=== PATIENT | female | born 1945 | race American Indian/Alaskan Native ===

== ENCOUNTER 2017-02-13 14:26 | Observation (INO) | payer OTHER ==
[2017-02-13] MEDS ORDERED: SODIUM CHLORIDE 0.9% 1000 ML INFUS.BAG IV ONE ×2 (14:33→14:42)
[2017-02-13 15:13] LABS: MCH 27.8 pg (25.7-33.7); MCHC 33.2 g/dl (32.0-36.0); MEAN CELL VOLUME 83.7 fl (80-96); MEAN PLT VOLUME 7.1 fl (7.5-11.1); NEUTROPHILS 63.2 % (42.8-82.8); PLATELET COUNT 248 K/MM3 (134-434); RDW 14.4 % (11.6-15.6); WHITE BLOOD COUNT 7.2 K/mm3 (4.0-10.0)
--- NOTE | 2017-02-13 15:27 | PDOC ---
History of Present Illness - General Chief Complaint: Blood Pressure Problem Stated Complaint: Blood Pressure Problem Time Seen by Provider: 02/13/17 14:32 History Source: Patient, Family Exam Limitations: No Limitations - History of Present Illness Initial Comments: 02/13/17 15:20 The patient is a 71F with a PMH of HTN and hypothyroidism who presents to the ED after an acute onset of weakness. The patient is with family who is at bedside. The family states that the patient had breakfast this morning then began feeling dizzy. She took a nap but then continued to feel dizzy around noon. They took her BP at noon and it was 160/100, she took 10mg of her medication and rechecked the BP and it was 156/90. After a little while longer, the patient's BP was rechecked at 170/100. The patient is also complaining of numbness around mouth with her hands and feet being cold. Her dizziness is described as lightheaded. BG was 115. Allergies: asa, sulfa abx Social: none Past History - Past Medical History Allergies/Adverse Reactions: Allergies Allergy/AdvReac Type Severity Reaction Status Date / Time amoxicillin trihydrate Allergy Vomiting Verified 02/13/17 15:51 [From Augmentin] aspirin Allergy Verified 02/13/17 15:50 potassium clavulanate Allergy Vomiting Verified 02/13/17 15:50 [From Augmentin] Sulfa (Sulfonamide Allergy Verified 02/13/17 14:39 Antibiotics) Home Medications: Ambulatory Orders Calcium Carbonate/Vitamin D3 [Calcium 500 + D Tablet] 1 each PO DAILY 08/23/13 Levothyroxine [Synthroid -] 88 mcg PO DAILY 08/23/13 Olmesartan Medoxomil [Benicar -] 20 mg PO DAILY 08/23/13 Omega3/Dha/Epa/Fish Oil/Vit D3 [Fauqo-7-Nqvz Oil-Vit D3 Sftgl] 1 each PO DAILY 08/23/13 Vitamin B Complex 1 each PO DAILY 08/23/13 Anemia: No Asthma: No Cancer: No Cardiac Disorders: No CVA: No COPD: No CHF: No Dementia: No Diabetes: No GI Disorders: No Disorders: No HTN: Yes Hypercholesterolemia: Yes Liver Disease: No Seizures: No Thyroid Disease: Yes - Surgical History Abdominal Surgery: No Appendectomy: No Cardiac Surgery: No Cholecystectomy: No Lung Surgery: No Neurologic Surgery: No Orthopedic Surgery: No - Psycho/Social/Smoking Cessation Hx Anxiety: No Suicidal Ideation: No Smoking History: Never smoked Have you smoked in the past 12 months: No Information on smoking cessation initiated: No Hx Alcohol Use: No Drug/Substance Use Hx: No Substance Use Type: None Review of Systems - Review of Systems Able to Perform ROS?: Yes Is the patient limited German proficient: No Constitutional: Yes: Weakness. No: Chills, Fever Respiratory: No: Shortness of Breath Cardiac (ROS): No: Chest Pain ABD/GI: Yes: Nausea. No: Vomiting, Other (abd pain) Neurological: Yes: Weakness. No: Headache, Numbness, Tingling *Physical Exam - Vital Signs Last Vital Signs Temp Pulse Resp BP Pulse Ox 98.1 F 94 H 18 164/101 96 02/13/17 14:26 02/13/17 14:26 02/13/17 14:26 02/13/17 14:26 02/13/17 14:26 - Physical Exam General Appearance: Yes: Nourished, Appropriately Dressed. No: Mild Distress, Moderate Distress HEENT: positive: Normal Voice, Hearing Grossly Normal Respiratory/Chest: positive: Lungs Clear, Normal Breath Sounds. negative: Chest Tender, Respiratory Distress, Accessory Muscle Use, Labored Respiration Cardiovascular: positive: Regular Rhythm, Regular Rate, S1, S2. negative: Diastolic Murmur, Systolic Murmur, Irregularly Irregular Gastrointestinal/Abdominal: positive: Normal Bowel Sounds, Flat, Soft. negative : Tender Musculoskeletal: negative: CVA Tenderness (R) Extremity: positive: Normal Range of Motion. negative: Swelling, Calf Tenderness Integumentary: positive: Dry, Warm. 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 negative: Facial Droop, Sensory Deficit ED Treatment Course - LABORATORY CBC & Chemistry Diagram: 02/13/17 14:55 02/13/17 14:55 - ADDITIONAL ORDERS Additional order review: 02/13/17 14:55 RBC 4.32 MCV 83.7 MCHC 33.2 RDW 14.4 MPV 7.1 L Neutrophils % 63.2 D Lymphocytes % 28.0 D Monocytes % 5.8 Eosinophils % 2.0 D Basophils % 1.0 D - RADIOLOGY Radiology Studies Ordered: Category Date Time Status HEAD CT WITHOUT CONTRAST [CT] Stat CT Scan 02/13/17 14:35 Taken CHEST X-RAY PORTABLE* [RAD] Stat Radiology 02/13/17 14:39 Ordered Medical Decision Making - Medical Decision Making 02/13/17 15:33 The patient is a 71F with a PMH of HTN and hypothyroidism who presented with weakness. I have ordered labs and head ct. Head CT is negative. The patient does not have a white count. I will reassess when the labs return. 02/13/17 16:49 CXR negative. Lactate 2.0 (-). CMP WNL. Patient states that she feels a little better but still complains of weakness. Daughter, Lux, was notified. Pending UA. *DC/Admit/Observation/Transfer Diagnosis at time of Disposition: Vertigo, Weakness generalized - Discharge Dispostion Condition at time of disposition: Stable Admit: Yes
[2017-02-13 15:33] LABS: ALBUMIN 3.5 g/dl (3.4-5.0); ANION GAP 8 (8-16); CALCIUM 9.1 mg/dL (8.5-10.1); CO2 24 mmol/L (21-32); CREATININE 0.7 mg/dL (0.55-1.02); GLUCOSE,RANDOM 101 mg/dL (74-106); MAGNESIUM 2.1 mg/dL (1.8-2.4); SGOT/AST 17 U/L (15-37); SGPT/ALT 23 U/L (12-78)
[2017-02-13 15:34] LABS: ALK PHOS 88 U/L (45-117); BILIRUBIN,TOTAL 0.4 mg/dL (0.2-1.0); TOT PROT 7.5 g/dl (6.4-8.2)
[2017-02-13 15:37] LABS: CPK 84 IU/L (26-192); TROPONIN I < 0.02 ng/ml (0.00-0.05)
[2017-02-13 16:55] LABS: URINE APPEARANCE CLOUDY; URINE BILIRUBIN NEGATIVE (NEGATIVE); URINE BLOOD NEGATIVE (NEGATIVE); URINE COLOR LTYELLOW; URINE GLUCOSE (UA) NEGATIVE (NEGATIVE); URINE KETONE NEGATIVE (NEGATIVE); URINE LEUK ESTERASE NEGATIVE (NEGATIVE); URINE NITRITE NEGATIVE (NEGATIVE); URINE PROTEIN NEGATIVE (NEGATIVE); URINE UROBILINOGEN NEGATIVE mg/dL (0.2-1.0)
--- NOTE | 2017-02-13 17:26 | PDOC ---
NIH Stroke Scale - Last Known Well Date/Time & Onset Date Last Known Well: 02/13/17 Time Last Known Well: 11:00 - Initial Evaluation Level of consciousness: Alert Ask patient the month and their age: Answers both correctly Ask patient to open & close eyes; make fist and let go: Obeys both correctly Best gaze (horizontal eye movement): Normal Visual field testing: No visual field loss Facial paresis (Show teeth/raise eyebrows/close eyes tight): Normal symmetrical movement Motor Function: Left Arm: Normal Motor Function: Right Arm: Normal (extends arm 90 (or 45) degrees for 10 seconds without drift Motor Function: Left Leg: Normal (extends leg 30 degrees for 5 seconds without drift) Motor Function: Right Leg: Normal (extends leg 30 degrees for 5 seconds without drift) Limb Ataxia: No ataxia Sensory(Use pinprick test arms,legs,trunk,face/side to side): Normal Best language (Describe picture, name items, read sentences): No Aphasia Dysarthria (read several words): Normal articulation Extinction and Inattention: No abnormality - Total Score NIH Stroke Scale Score: 0
--- NOTE | 2017-02-13 17:27 | CON.NEURO ---
Consult - History of Present Illness History of Present Illness: 71F with a PMH of HTN and hypothyroidism who presents to the ED after an acute onset of weakness. The patient is with family who is at bedside. The family states that the patient had breakfast this morning then began feeling dizzy apx 11AM. She took a nap but then continued to feel dizzy around noon. They took her BP at noon and it was 160/100, she took 10mg of her medication and rechecked the BP and it was 156/90. BP remained high. The patient is also complaining of numbness around mouth with her hands and feet being cold. Her dizziness is described as lightheaded. BG was 115. no new RX , no focal weakness/numbness, dizziness worse when she sits up. CT HD (-) - History Source History Provided By: Patient, Family Member Limitations to Obtaining History: No Limitations - Past Medical History Cardio/Vascular: Yes: HTN Endocrine: Yes: Hypothyroidism - Alcohol/Substance Use Hx Alcohol Use: No - Smoking History Smoking history: Never smoked Have you smoked in the past 12 months: No Home Medications - Allergies Allergies/Adverse Reactions: Allergies Allergy/AdvReac Type Severity Reaction Status Date / Time amoxicillin trihydrate Allergy Vomiting Verified 02/13/17 15:51 [From Augmentin] aspirin Allergy Verified 02/13/17 15:50 potassium clavulanate Allergy Vomiting Verified 02/13/17 15:50 [From Augmentin] Sulfa (Sulfonamide Allergy Verified 02/13/17 14:39 Antibiotics) - Home Medications Home Medications: Ambulatory Orders Calcium Carbonate/Vitamin D3 [Calcium 500 + D Tablet] 1 each PO DAILY 08/23/13 Levothyroxine [Synthroid -] 88 mcg PO DAILY 08/23/13 Olmesartan Medoxomil [Benicar -] 20 mg PO DAILY 08/23/13 Omega3/Dha/Epa/Fish Oil/Vit D3 [Ybaqy-2-Waur Oil-Vit D3 Sftgl] 1 each PO DAILY 08/23/13 Vitamin B Complex 1 each PO DAILY 08/23/13 Physical Exam-Neuro Vital Signs: Vital Signs Temperature 98.2 F 02/13/17 16:33 Pulse Rate 86 02/13/17 17:15 Respiratory Rate 16 02/13/17 17:15 Blood Pressure 152/88 02/13/17 17:15 O2 Sat by Pulse Oximetry (%) 98 02/13/17 17:15 Constitutional: Yes: Well Nourished, No Distress Neck: Yes: WNL Cardiovascular: Yes: Regular Rate and Rhythm Respiratory: Yes: Regular Labs: CBC, BMP 02/13/17 14:55 02/13/17 14:55 - Neuro Exam Level Of Consciousness: Yes: Alert, Oriented to Person (EOMI, feels vertiginous when she sits up, no facial, no ptosis, no facial sesnory issue, no focal weakness, no ataxia, reflexes symmetric, planatrs down, gait not tested ) Speech: WNL NIH Stroke Scale - Last Known Well Date/Time & Onset Symptom Onset Date: 02/13/17 Symptom Onset Time: 11:00 Date Last Known Well: 02/13/17 Time Last Known Well: 11:00 - Initial Evaluation Level of consciousness: Alert Ask patient the month & their age: Answers Both Correctly Ask Patient to open & close eyes; make fist and let go.: Obeys Both Correctly Best gaze (horizontal eye movement): Normal Visual Field Testing: No Visual Loss Facial Palsy(Show teeth or raise eyebrows & close eyes: Normal Symmetrical Movements. Motor Function - Left Arm: No Drift;extends limb 90 (or siting 45) degress & hold full 10 seconds Motor Function - Right Arm: No Drift;extends limb 90 (or siting 45) degress & hold full 10 seconds Motor Function - Left Leg: No Drift; leg holds 30 degree position for full 5 seconds. Motor Function - Right Leg: No Drift; leg holds 30 degree position for full 5 seconds. Limb Ataxia: Absent (also used for the pt who does not understand or paralyzed) Sensory (arms, legs, trunk, face): Normal; no sensory loss Best Language: No Aphasia; normal Dysarthria/Articulation: Normal Extinction and Inattention: No abnormality - Total Score NIH Stroke Scale Score: 0 Problem List - Problems (1) Vertigo Code(s): R42 - DIZZINESS AND GIDDINESS (2) Weakness generalized Code(s): R53.1 - WEAKNESS Assessment/Plan 71F with a PMH of HTN and hypothyroidism who presents to the ED after an acute onset of generalized weakness, perioral numbness and vertigo--positional vertigo sounds more peripheral (BPPV), though given numbness of face should r/o posterior circulation TIA/stroke; BP elevated but usually not high enough to cause her sx. r/o metabolic, thyroid, cardiac issues ASA for now, check TSH LIPIDS, Check MRI BRAIN /MRA BRAIN and MRA neck IV hydration, BP control meclizine PRN cardiac EVAL Dr Goodwin [phone]
[2017-02-13] MEDS ORDERED: ASPIRIN 81 MG CHEWABLE TABLETS PO ONE (17:38)
[2017-02-13] MEDS ORDERED: ASPIRIN 81 MG CHEWABLE TABLETS ONE (17:50)
--- NOTE | 2017-02-13 19:00 | PDOC ---
Attending Attestation - Resident Resident Name: Giorgi Arredondo - ED Attending Attestation I have performed the following: I have examined & evaluated the patient, The case was reviewed & discussed with the resident, I agree w/resident's findings & plan, Exceptions are as noted - HPI HPI: 02/13/17 18:57 71-year-old female history of hypertension and hypothyroidism who presents with sudden onset dizziness this morning at 11am associated with generalized weakness. She describes her dizziness as lightheadedness which is worse when she stands up. At that time she checked her blood pressure and found it to be elevated to 150s over low 100s. She then took one dose of her olmesartan. She rechecked her blood pressure 30 minutes later and it remained high at 156/90 so she took a second dose of her olmesartan. She also complains of intermittent numbness around her mouth and a sensation that her hands and feet are cold. Denies any recent fevers, chills, nausea, vomiting, diarrhea, abdominal pain, headaches, lower extremity edema, , chest pain, shortness of breath. No weakness or numbness. - Physicial Exam PE: 02/13/17 19:05 GENERAL: Awake, alert, and fully oriented, in no acute distress HEAD: No signs of trauma EYES: PERRLA, EOMI, sclera anicteric, conjunctiva clear ENT: Auricles normal inspection, hearing grossly normal, nares patent, oropharynx clear without exudates. dry MM NECK: Normal ROM, supple, no lymphadenopathy, JVD, or masses LUNGS: Breath sounds equal, clear to auscultation bilaterally. No wheezes, and no crackles HEART: Regular rate and rhythm, normal S1 and S2, no murmurs, rubs or gallops ABDOMEN: Soft, nontender, normoactive bowel sounds. No guarding, no rebound. No masses EXTREMITIES: Normal range of motion, no edema. No clubbing or cyanosis. No cords, erythema, or tenderness NEUROLOGICAL: Normal speech, cranial nerves intact, negative pronator drift, 5/ 5 strength in all 4 extremities, normal sensation to light touch in all 4 extremities, normal cerebellar exam, normal gait, normal reflexes and tone SKIN: Warm, Dry, normal turgor, no rashes or lesions noted. - Medical Decision Making 02/13/17 19:06 71-year-old female history of hypertension and hypothyroidism presents with lightheadedness and weakness. Differential is wide and includes cardiac etiology such as ACS versus infectious etiology such as UTI or PNA versus possible CVA. -labs -blood cx -UA -CTH stat -IVF -telemetry monitor -neuro c/s -if CTH negative, consider MRI -admit
[2017-02-14] MEDS ORDERED: ACETAMINOPHEN 325 MG TABLET (FP) PO PRN (00:04)
[2017-02-14 06:36] VITALS: PULSE 67
[2017-02-14] MEDS ORDERED: LEVOTHYROXINE NA 88 MCG TABLET (FP) PO SCH (07:00)
[2017-02-14 07:53] LABS: MCH 27.7 pg (25.7-33.7); MCHC 33.3 g/dl (32.0-36.0); MEAN CELL VOLUME 83.2 fl (80-96); PLATELET COUNT 236 K/MM3 (134-434); RDW 14.3 % (11.6-15.6); WHITE BLOOD COUNT 7.9 K/mm3 (4.0-10.0)
--- NOTE | 2017-02-14 08:24 | PN ---
Progress Note (short form) - Note Progress Note: Chief Complaint: Events noted notes reviewed. Sudden onset of generalized weakness with no focal deficits in association with uncontrolled hypertension, denies any chest pain or dyspnea History of Present Illness: Seen and examined on telemetry. Full consult dictated - Current Medication List Current Medications Acetaminophen (Tylenol -) 650 mg PO Q6H PRN PRN Reason: FEVER OR PAIN Last Admin: 02/14/17 00:09 Dose: 650 mg Calcium Carbonate/Cholecalciferol (Os-Brenden 500+D -) 1 tab PO DAILY [facility] Levothyroxine Sodium (Synthroid -) 88 mcg PO DAILY@0700 SUNI Last Admin: 02/14/17 06:36 Dose: 88 mcg Multivitamins (Total B With C -) 1 each PO DAILY [facility] Beaman 3 Fish Oil W/ (Vit D3) 1 each PO DAILY [facility] Valsartan (Diovan -) 160 mg PO DAILY [facility] - Review of Systems Constitutional: denies: Chills, Fever Cardiovascular: As noted above Respiratory: denies: Cough or sputum Production Gastrointestinal: denies: Nausea, Vomiting, Diarrhea, Constipation or Abdominal Pain Neurological: As noted above - Objective Vital Signs: Last Vital Signs Temp Pulse Resp BP Pulse Ox 97.8 F 67 20 123/59 100 02/14/17 06:35 02/14/17 06:35 02/14/17 06:35 02/14/17 06:35 02/13/17 18:57 Intake & Output 02/11/17 02/12/17 02/13/17 02/14/17 23:59 23:59 23:59 23:59 Intake Total 180 Balance 180 Weight 175 lb Neck: Supple Negative JVD Cardiovascular: S1 S2 Regular Rate and Rhythm No Murmurs Clicks or Gallops Respiratory: Clear to A&P Bilaterally Gastrointestinal: Soft Benign Normal Bowel Sounds Ext: No Edema Labs: Troponin, BNP 02/13/17 14:55 Troponin I < 0.02 Hepatic Panel Total Bilirubin 0.4 mg/dL (0.2-1.0) D 02/13/17 14:55 AST 17 U/L (15-37) D 02/13/17 14:55 ALT 23 U/L (12-78) 02/13/17 14:55 Alkaline Phosphatase 88 U/L (45-117) 02/13/17 14:55 Albumin 3.5 g/dl (3.4-5.0) 02/13/17 14:55 Assessment/Plan ASSESSMENT: 1. Generalized weakness with no focal neurologic deficits etiology of which is to be determined 2. Hypertensive cardiovascular disease, labile blood pressure 3. Hypercholesterolemia 4. Hypothyroidism PLAN: 1. Continue Diovan and resume Benicar upon D/C at 40 mg once daily 2. Recommend the addition of B-Blockers, Toprol XL 3. Add ASA, patient is not allergic to ASA (reported intolerance to ASA 325 mg administration, GI side effects) 4. Add Statin therapy and check lipid profile, Lipitor 5. Can be D/C from cardiovascular point of view and additional evaluation to be performed as outpatient including echocardiography and MPI study Thank you Rafi Marshall MD
[2017-02-14 08:35] LABS: ALBUMIN 3.2 g/dl (3.4-5.0); ALK PHOS 79 U/L (45-117); ANION GAP 8 (8-16); BILIRUBIN,TOTAL 0.5 mg/dL (0.2-1.0); CALCIUM 8.9 mg/dL (8.5-10.1); CO2 25 mmol/L (21-32); CPK 73 IU/L (26-192); CREATININE 0.6 mg/dL (0.55-1.02); GLUCOSE,RANDOM 88 mg/dL (74-106); SGOT/AST 18 U/L (15-37); SGPT/ALT 22 U/L (12-78); TOT PROT 6.8 g/dl (6.4-8.2); TROPONIN I < 0.02 ng/ml (0.00-0.05)
--- NOTE | 2017-02-14 08:40 | PN ---
Progress Note (short form) - Note Progress Note: 71F with a PMH of HTN and hypothyroidism who presents to the ED after an acute onset of weakness. The patient is with family who is at bedside. The family states that the patient had breakfast this morning then began feeling dizzy apx 11AM. She took a nap but then continued to feel dizzy around noon. They took her BP at noon and it was 160/100, she took 10mg of her medication and rechecked the BP and it was 156/90. BP remained high. The patient is also complaining of numbness around mouth with her hands and feet being cold. Her dizziness is described as lightheaded. BG was 115. no new RX , no focal weakness/numbness, dizziness worse when she sits up. CT HD (-) FU: MRI MRA reviewed, no cute CVa , no stenosis - History Source History Provided By: Patient, Family Member Limitations to Obtaining History: No Limitations - Past Medical History Cardio/Vascular: Yes: HTN Endocrine: Yes: Hypothyroidism - Alcohol/Substance Use Hx Alcohol Use: No - Smoking History Smoking history: Never smoked Have you smoked in the past 12 months: No Home Medications - Allergies Allergies/Adverse Reactions: Allergies Allergy/AdvReac Type Severity Reaction Status Date / Time amoxicillin trihydrate Allergy Vomiting Verified 02/13/17 15:51 [From Augmentin] aspirin Allergy Verified 02/13/17 15:50 potassium clavulanate Allergy Vomiting Verified 02/13/17 15:50 [From Augmentin] Sulfa (Sulfonamide Allergy Verified 02/13/17 14:39 Antibiotics) - Home Medications Home Medications: Ambulatory Orders Calcium Carbonate/Vitamin D3 [Calcium 500 + D Tablet] 1 each PO DAILY 08/23/13 Levothyroxine [Synthroid -] 88 mcg PO DAILY 08/23/13 Olmesartan Medoxomil [Benicar -] 20 mg PO DAILY 08/23/13 Omega3/Dha/Epa/Fish Oil/Vit D3 [Hgbfs-7-Kuod Oil-Vit D3 Sftgl] 1 each PO DAILY 08/23/13 Vitamin B Complex 1 each PO DAILY 08/23/13 Physical Exam-Neuro Vital Signs: Vital Signs Temperature 97.8 F 02/14/17 06:35 Pulse Rate 67 02/14/17 06:35 Respiratory Rate 20 02/14/17 06:35 Blood Pressure 123/59 02/14/17 06:35 O2 Sat by Pulse Oximetry (%) 100 02/13/17 18:57 CBCD WBC 7.9 K/mm3 (4.0-10.0) 02/14/17 05:50 RBC 4.22 M/mm3 (3.60-5.2) 02/14/17 05:50 Hgb 11.7 GM/dL (10.7-15.3) 02/14/17 05:50 Hct 35.1 % (32.4-45.2) 02/14/17 05:50 MCV 83.2 fl (80-96) 02/14/17 05:50 MCHC 33.3 g/dl (32.0-36.0) 02/14/17 05:50 RDW 14.3 % (11.6-15.6) 02/14/17 05:50 Plt Count 236 K/MM3 (134-434) 02/14/17 05:50 MPV 7.0 fl (7.5-11.1) L 02/14/17 05:50 CMP Sodium 138 mmol/L (136-145) 02/13/17 14:55 Potassium 4.0 mmol/L (3.5-5.1) 02/13/17 14:55 Chloride 106 mmol/L (98-107) 02/13/17 14:55 Carbon Dioxide 24 mmol/L (21-32) 02/13/17 14:55 Anion Gap 8 (8-16) 02/13/17 14:55 BUN 13 mg/dL (7-18) 02/13/17 14:55 Creatinine 0.7 mg/dL (0.55-1.02) D 02/13/17 14:55 Creat Clearance w eGFR > 60 (>60) 02/13/17 14:55 Calcium 9.1 mg/dL (8.5-10.1) 02/13/17 14:55 Total Bilirubin 0.4 mg/dL (0.2-1.0) D 02/13/17 14:55 AST 17 U/L (15-37) D 02/13/17 14:55 ALT 23 U/L (12-78) 02/13/17 14:55 Alkaline Phosphatase 88 U/L (45-117) 02/13/17 14:55 Total Protein 7.5 g/dl (6.4-8.2) 02/13/17 14:55 Albumin 3.5 g/dl (3.4-5.0) 02/13/17 14:55 - Neuro Exam Level Of Consciousness: Yes: Alert, Oriented to Person (EOMI, feels vertiginous when she sits up, no facial, no ptosis, no facial sesnory issue, no focal weakness, no ataxia, reflexes symmetric, planatrs down, gait not tested ) Speech: WNL NIH Stroke Scale - Last Known Well Date/Time & Onset Symptom Onset Date: 02/13/17 Symptom Onset Time: 11:00 Date Last Known Well: 02/13/17 Time Last Known Well: 11:00 - Initial Evaluation Level of consciousness: Alert Ask patient the month & their age: Answers Both Correctly Ask Patient to open & close eyes; make fist and let go.: Obeys Both Correctly Best gaze (horizontal eye movement): Normal Visual Field Testing: No Visual Loss Facial Palsy(Show teeth or raise eyebrows & close eyes: Normal Symmetrical Movements. Motor Function - Left Arm: No Drift;extends limb 90 (or siting 45) degress & hold full 10 seconds Motor Function - Right Arm: No Drift;extends limb 90 (or siting 45) degress & hold full 10 seconds Motor Function - Left Leg: No Drift; leg holds 30 degree position for full 5 seconds. Motor Function - Right Leg: No Drift; leg holds 30 degree position for full 5 seconds. Limb Ataxia: Absent (also used for the pt who does not understand or paralyzed) Sensory (arms, legs, trunk, face): Normal; no sensory loss Best Language: No Aphasia; normal Dysarthria/Articulation: Normal Extinction and Inattention: No abnormality - Total Score NIH Stroke Scale Score: 0 Problem List - Problems (1) Vertigo Code(s): R42 - DIZZINESS AND GIDDINESS (2) Weakness generalized Code(s): R53.1 - WEAKNESS Assessment/Plan 71F with a PMH of HTN and hypothyroidism who presents to the ED after an acute onset of generalized weakness, perioral numbness and vertigo--positional vertigo sounds more peripheral (BPPV), though given numbness of face should r/o posterior circulation TIA/stroke; BP elevated but usually not high enough to cause her sx. MRI BRAIN /MRA BRAIN and MRA neck WNL looks better today, transient vestibulopathy neuro cleared for DC Dr Goodwin [phone] Problem List - Problems (1) Vertigo Code(s): R42 - DIZZINESS AND GIDDINESS (2) Weakness generalized Code(s): R53.1 - WEAKNESS
[2017-02-14 09:04] LABS: CHOLESTEROL 200 mg/dL (50-200); LDL CHOLESTEROL (ONLY SJRH) 128 mg/dL (5-100)
--- NOTE | 2017-02-14 09:32 | EKG ---
Test Reason : Blood Pressure : / mmHG Vent. Rate : 085 BPM Atrial Rate : 085 BPM P-R Int : 166 ms QRS Dur : 080 ms QT Int : 382 ms P-R-T Axes : 031 -04 028 degrees QTc Int : 454 ms NORMAL SINUS RHYTHM NONSPECIFIC ST ABNORMALITY ABNORMAL ECG WHEN COMPARED WITH ECG OF 19-JUN-2013 03:38, NO SIGNIFICANT CHANGE WAS FOUND Confirmed by TIMOTEO ROONEY MD ([id number]) on 02/14/2017 9:32:07 AM Referred By: Confirmed By:TIMOTEO ROONEY MD
[2017-02-14] MEDS ORDERED: VIT D3 PO SCH (10:00)
[2017-02-14] MEDS ORDERED: METOPROLOL SUCCINATE 25 MG TAB.SR.24H (FP) PO SCH (10:00)
[2017-02-14] MEDS ORDERED: ASPIRIN COATED 81 MG TABLET.EC PO SCH (10:00)
[2017-02-14] MEDS ORDERED: OMEGA FISH OIL PO SCH (10:00)
[2017-02-14] MEDS ORDERED: VITAMIN B COMPLEX W/C COMBO TABLET (FP) PO SCH (10:00)
[2017-02-14] MEDS ORDERED: VALSARTAN 160 MG TABLET (UD) PO SCH (10:00)
[2017-02-14] MEDS ORDERED: CALCIUM 500MG/VIT-D 200 UNITS COMBO TABLET (FP) PO SCH (10:00)
--- NOTE | 2017-02-14 10:00 | PN ---
Progress Note, Physician Chief Complaint: Pt lying in bed No complaints today NO dizziness,no headache BP under control MRI and MR a of brain and MRI and MRA of neck negative CT head negative cardiology and Neurology consult appreciated D?C home today - Current Medication List Current Medications: Active Medications Acetaminophen (Tylenol -) 650 mg PO Q6H PRN PRN Reason: FEVER OR PAIN Last Admin: 02/14/17 00:09 Dose: 650 mg Aspirin (Ecotrin -) 81 mg PO DAILY [facility] Atorvastatin Calcium (Lipitor -) 10 mg PO HS [facility] Calcium Carbonate/Cholecalciferol (Os-[place] 500+D -) 1 tab PO DAILY [facility] Levothyroxine Sodium (Synthroid -) 88 mcg PO DAILY@0700 [facility] Last Admin: 02/14/17 06:36 Dose: 88 mcg Metoprolol Succinate (Toprol Xl -) 25 mg PO DAILY [facility] Multivitamins (Total B With C -) 1 each PO DAILY [facility] [place] 3 Fish Oil W/ (Vit D3) 1 each PO DAILY [facility] Valsartan (Diovan -) 160 mg PO DAILY [facility] - Objective Vital Signs: Vital Signs Temperature 97.8 F 02/14/17 06:35 Pulse Rate 67 02/14/17 06:35 Respiratory Rate 20 02/14/17 06:35 Blood Pressure 123/59 02/14/17 06:35 O2 Sat by Pulse Oximetry (%) 100 02/13/17 18:57 Constitutional: Yes: No Distress Eyes: Yes: Conjunctiva Clear HENT: Yes: Atraumatic, Normocephalic Neck: Yes: Supple, Trachea Midline Cardiovascular: Yes: Regular Rate and Rhythm Respiratory: Yes: Regular, CTA Bilaterally Gastrointestinal: Yes: Normal Bowel Sounds, Soft Musculoskeletal: Yes: WNL Extremities: Yes: WNL Edema: No Peripheral Pulses WNL: Yes Neurological: Yes: Alert, Oriented, Cran Nerves II-XII Intact ...Motor Strength: WNL Psychiatric: Yes: WNL Labs: CBC, BMP 02/14/17 05:50 02/14/17 05:50 Laboratory Results - last 24 hr 02/13/17 02/13/17 02/13/17 14:55 14:55 14:55 WBC 7.2 D RBC 4.32 Hgb 12.0 Hct 36.2 MCV 83.7 MCH 27.8 MCHC 33.2 RDW 14.4 Plt Count 248 MPV 7.1 L Neutrophils % 63.2 D Lymphocytes % 28.0 D Monocytes % 5.8 Eosinophils % 2.0 D Basophils % 1.0 D Sodium 138 Potassium 4.0 Chloride 106 Carbon Dioxide 24 Anion Gap 8 BUN 13 Creatinine 0.7 D Creat Clearance w eGFR > 60 Random Glucose 101 Lactic Acid Calcium 9.1 Magnesium 2.1 Total Bilirubin 0.4 D AST 17 D ALT 23 Alkaline Phosphatase 88 Creatine Kinase 84 Troponin I < 0.02 Total Protein 7.5 Albumin 3.5 Triglycerides Cholesterol Total LDL Cholesterol HDL Cholesterol Urine Color Urine Appearance Urine pH Ur Specific [place] Urine Protein Urine Glucose (UA) Urine Ketones Urine Blood Urine Nitrite Urine Bilirubin Urine Urobilinogen Ur Leukocyte Esterase 02/13/17 02/13/17 02/14/17 15:40 16:30 05:50 WBC 7.9 RBC 4.22 Hgb 11.7 Hct 35.1 MCV 83.2 MCH 27.7 MCHC 33.3 RDW 14.3 Plt Count 236 MPV 7.0 L Neutrophils % Lymphocytes % Monocytes % Eosinophils % Basophils % Sodium Potassium Chloride Carbon Dioxide Anion Gap BUN Creatinine Creat Clearance w eGFR Random Glucose Lactic Acid 2.0 Calcium Magnesium Total Bilirubin AST ALT Alkaline Phosphatase Creatine Kinase Troponin I Total Protein Albumin Triglycerides Cholesterol Total LDL Cholesterol HDL Cholesterol Urine Color Ltyellow Urine Appearance Cloudy Urine pH 8.0 D Ur Specific [place] 1.015 Urine Protein Negative Urine Glucose (UA) Negative Urine Ketones Negative Urine Blood Negative Urine Nitrite Negative Urine Bilirubin Negative Urine Urobilinogen Negative Ur Leukocyte Esterase Negative 02/14/17 02/14/17 05:50 05:50 WBC RBC Hgb Hct MCV MCH MCHC RDW Plt Count MPV Neutrophils % Lymphocytes % Monocytes % Eosinophils % Basophils % Sodium 141 Potassium 4.2 Chloride 108 H Carbon Dioxide 25 Anion Gap 8 BUN 9 D Creatinine 0.6 Creat Clearance w eGFR > 60 Random Glucose 88 Lactic Acid Calcium 8.9 Magnesium Total Bilirubin 0.5 D AST 18 ALT 22 Alkaline Phosphatase 79 Creatine Kinase 73 Troponin I < 0.02 Total Protein 6.8 Albumin 3.2 L Triglycerides 104 Cancelled Cholesterol 200 Cancelled Total LDL Cholesterol 128 H Cancelled HDL Cholesterol 57 Cancelled Urine Color Urine Appearance Urine pH Ur Specific [place] Urine Protein Urine Glucose (UA) Urine Ketones Urine Blood Urine Nitrite Urine Bilirubin Urine Urobilinogen Ur Leukocyte Esterase - ....Imaging X-ray: Report Reviewed Cat Scan: Report Reviewed MRI: Report Reviewed EKG: Report Reviewed Assessment/Plan DIzziness with generalised weakness HTN Hypothyroidism PLAN Continue benicar and toprolXL zocor 10mg po daily D?C home F/U with PMD in one wk
[2017-02-14] MEDS ORDERED: PT OWN MED DRAWER 7, Y5N ONE (10:03)
[2017-02-14 10:13] VITALS: BP 140/80; TEMP 97.6
--- NOTE | 2017-02-14 10:21 | HP ---
DATE OF ADMISSION: HISTORY: The patient is a 71-year-old with a past medical history of hypertension, hypothyroidism who presented to the emergency room after the onset of weakness. As per the family, she felt dizzy since morning. Yesterday she took a nap but continued to feel dizzy around noon, so they took her blood pressure, and it was 160/100, and the patient took an extra 10 mg of Benicar in addition to her regular medication of 10 mg in the morning. Rechecked the BP, and it was 156/90. The blood pressure remained high. The patient is complaining of some perioral numbness and funny feeling in the hand and hand was feeling cold, so the patient was brought to the emergency room for further evaluation. No focal weakness or numbness. No chest pain or palpitations. As per the patient, the dizziness was worse when she would stop. PAST MEDICAL HISTORY: Hypertension, hypothyroidism. PERSONAL HISTORY: Nothing significant. No history of alcohol, drug, or smoking. Lives with the family. ALLERGIES: AUGMENTIN, AMOXICILLIN, SULFA. MEDICATIONS: The patient is on: 1. Benicar 10 mg. 2. [place]-3. 3. Vitamin B complex. 4. Levothyroxine 18 mcg p.o. daily. 5. Calcium. PHYSICAL EXAMINATION: Vital Signs: In the emergency room, the patient's temperature a 98.1, pulse rate 94, respirations 18, blood pressure 164/100, saturation 96%. Head and Neck: Normal. Neck supple, no JVD. Chest: Clear. Cardiovascular: First and 2nd sound normal. Abdomen: Soft. No tenderness. No distention. Bowel sounds present. Extremities: Full range of movement. No edema. Central Nervous System: Alert and oriented x3. No apparent motor or sensory deficit. Reflex normal. Cranial nerves 2-12 normal. Gait normal. LABORATORIES: CBC normal. CMP normal. Lactic acid 2, AST 17, CK 84, troponin x1 negative. Calcium 9.1, magnesium 2.1. Chest x-ray, nothing significant. EKG: Normal sinus rhythm. Nonspecific ST abnormality. Compared to old EKG, there is no change. CT head done. It was negative. MRI of the neck and brain with MRA done. There is no infarct. MRA brain, minimal periventricular and subcortical chronic microvascular disease. Intracranial MRA. No evidence of large-vessel stenosis. Patent vertebral artery. No carotid stenosis. The patient was admitted to telemetry for close monitoring. Cardiology and Neurology consult called. Patient was stable on the floor, according to Cardiology. Benicar dose increased to 40 mg daily. Beta-ponce added. Anti-lipid medication added. ADMITTING DIAGNOSIS: 1. Generalized weakness with no focal neurological symptoms. 2. Hypertensive cardiovascular disease. 3. Hypercholesterolemia. 4. Hypothyroidism. PLAN: Continue the Benicar 40 mg daily. Add aspirin. Toprol XL added. 100 mg added. We will continue to monitor the patient. ALBER PEREA M.D. [id number]
--- NOTE | 2017-02-14 12:13 | DS ---
Physical Examination Vital Signs: Vital Signs Temperature 97.6 F 02/14/17 09:53 Pulse Rate 67 02/14/17 09:53 Respiratory Rate 18 02/14/17 09:53 Blood Pressure 140/80 02/14/17 09:53 O2 Sat by Pulse Oximetry (%) 97 02/14/17 09:53 Labs: CBC, BMP 02/14/17 05:50 02/14/17 05:50 Discharge Summary Reason For Visit: VERTIGO VERTIGO GENERALISED WEAKNESS UNCONTROLLED HTN HYPOTHYROIDISM Hospital Course: PT with H?o HTN,HYPOTHYROIDISM Admitted with vertigo,WEakness and uncontrolled Htn.AT the time Of admission Labs were NL,EKG and CHEST Xray Were NL CT head,MRI and MRA of joanne and MRI and MRA of Neck were MNL.Pt was monitored in TElemetry Pt was seen by cardiology and neurology,Pt was stable in the floor.Pt d/c home on Home meds,TOPROL XL and Lipitor in a stable condition.REc to f/u with PMD in one WK Condition: Stable - Instructions Referrals: Dory Espinosa MD [Primary Care Provider] - Disposition: HOME - Home Medications Comprehensive Discharge Medication List: Ambulatory Orders Calcium Carbonate/Vitamin D3 [Calcium 500 + D Tablet] 1 each PO DAILY 08/23/13 Levothyroxine [Synthroid -] 88 mcg PO DAILY 08/23/13 Olmesartan Medoxomil [Benicar -] 20 mg PO DAILY 08/23/13 Omega3/Dha/Epa/Fish Oil/Vit D3 [Dibtn-2-Drnr Oil-Vit D3 Sftgl] 1 each PO DAILY 08/23/13 Vitamin B Complex 1 each PO DAILY 08/23/13 Atorvastatin Ca [Lipitor] 10 mg PO HS #30 tablet 02/14/17 Metoprolol Succinate [Toprol XL -] 25 mg PO DAILY #30 tab 02/14/17
--- NOTE | 2017-02-14 12:19 | DS ---
Physical Examination Vital Signs: Vital Signs Temperature 97.6 F 02/14/17 09:53 Pulse Rate 67 02/14/17 09:53 Respiratory Rate 18 02/14/17 09:53 Blood Pressure 140/80 02/14/17 09:53 O2 Sat by Pulse Oximetry (%) 97 02/14/17 09:53 Labs: CBC, BMP 02/14/17 05:50 02/14/17 05:50 Discharge Summary Reason For Visit: VERTIGO Dizziness wekness HTN HYPOTHyROIDISM Hospital Course: Pt with h/o HTN,HYPOTHYROIDISM admitted with generalised weakness,vertigo and Uncontrolled HTN.AT the time of admission CBC,CMP were NL Cardiac enzymes were negative.EKG NL,CT head NL,MRI And MRA of brain and MRI and MRA of NECK were NL.Chest x ray NL Pt was monitored in the Telemetry.PT was seen by Neurology negative Condition: Stable - Instructions Referrals: Dory Espinosa MD [Primary Care Provider] - Disposition: HOME - Home Medications Comprehensive Discharge Medication List: Ambulatory Orders Calcium Carbonate/Vitamin D3 [Calcium 500 + D Tablet] 1 each PO DAILY 08/23/13 Levothyroxine [Synthroid -] 88 mcg PO DAILY 08/23/13 Olmesartan Medoxomil [Benicar -] 20 mg PO DAILY 08/23/13 Omega3/Dha/Epa/Fish Oil/Vit D3 [Sxyyc-2-Cclw Oil-Vit D3 Sftgl] 1 each PO DAILY 08/23/13 Vitamin B Complex 1 each PO DAILY 08/23/13 Atorvastatin Ca [Lipitor] 10 mg PO HS #30 tablet 02/14/17 Metoprolol Succinate [Toprol XL -] 25 mg PO DAILY #30 tab 02/14/17
[2017-02-14] MEDS ORDERED: ATORVASTATIN CA 10 MG TABLET (FP) PO SCH (22:00)
--- NOTE | 2017-02-15 09:10 | CONS ---
DATE OF CONSULTATION: 02/14/2017 REQUESTED BY: Dory Espinosa MD CHIEF COMPLAINT: Generalized weakness, elevated blood pressure, cardiovascular evaluation. HISTORY OF PRESENT ILLNESS: A 71-year-old female of [place] descent with known history of hypertensive cardiovascular disease, hypercholesterolemia, hypothyroidism, who was in her usual state of health until presenting to [facility] emergency room yesterday with generalized weakness and in addition circumoral paresthesia. Generalized weakness was sudden in onset which persisted and in addition patient noted elevated blood pressure measurements in view of which she had administered extra Benicar therapy. Patient stated that on several occasions she has noted elevated blood pressure measurement in view of which additional Benicar therapy has been administered. Patient as noted above reported circumoral paresthesia. Patient denied any additional neurologic deficits. Patient reported transient dizziness. Patient does not report any history of chest discomfort. Patient reports dyspnea with moderate physical exertion. Patient denies any orthopnea, paroxysmal nocturnal dyspnea, or peripheral edema. Patient denies any palpitations or syncope. Patient denies any fatigue or tiredness. MRI of the brain did not reveal any evidence of acute pathology and in addition MRA of the brain did not reveal any evidence of vascular pathology. PAST MEDICAL HISTORY: Hypertensive cardiovascular disease, labile blood pressure, hypercholesterolemia, hypothyroidism. SOCIAL HISTORY: Denies tobacco abuse or alcohol intake. FAMILY HISTORY: No family history of premature coronary artery disease. ALLERGIES: AMOXICILLIN and SULFA. MEDICAL THERAPY: Currently includes acetaminophen 650 mg every 6 hours as needed, Os-Bren[place] 500+D 1 tablet once a day, Synthroid 88 mcg once a day, multivitamin 1 tablet once a day, [place] 3 one capsule once a day, Benicar 20 mg once a day. REVIEW OF SYSTEMS:Head and Neck: Denies headache, photophobia, blurring of vision. Respiratory: No cough or sputum production. Cardiovascular: As noted above. Gastrointestinal: Denies nausea, vomiting, diarrhea, abdominal discomfort. Genitourinary: No symptoms reported. PHYSICAL EXAMINATION:Vital Signs: Blood pressure is 123/59 mmHg, pulse rate of 67 beats per minute. Head and Neck: Pupils equally react to light and accommodation. Extraocular muscle intact. Anicteric sclerae. Negative JVD. No bruit appreciated. Chest: Clear to auscultation and percussion. Cardiovascular: S1 and S2, regular. No murmur, clicks, or gallops. Abdomen: Soft, benign. Normoactive bowel sounds. Extremities: Negative edema. Intact distal pulses. No calf tenderness. DIAGNOSTIC DATA: Electrocardiogram reveals sinus rhythm with early transition and nonspecific ST-segment abnormality. Chest x-ray report was noted. MRI and MRA of the brain reports were noted. CBC revealed a white cell count of 7.2, hemoglobin 12.0, platelet count 248. Basic metabolic profile revealed sodium 138, potassium 4.0, BUN 113, creatinine 0.7, glucose 101, with normal liver profile. Troponin less than 0.02. ASSESSMENT: 1. Generalized weakness with no focal neurologic deficit, etiology of which is to be determined. 2. Hypertensive cardiovascular disease, labile blood pressure. 3. Hypercholesterolemia. 4. Hypothyroidism. PLAN: 1. Continuation of Diovan therapy and to resume Benicar therapy upon discharge at 40 mg once daily. 2. Recommend the addition of beta ponce therapy, Toprol XL, at 25 mg once daily. 3. Addition of aspirin therapy. Patient has no allergy to aspirin therapy but GI intolerant. 4. Addition of statin therapy and obtain fasting lipid profile. Initiate Lipitor therapy. 5. Patient can be discharged home from the cardiovascular point of view and additional evaluation to be performed on an outpatient basis, including echocardiography and myocardial perfusion imaging study. Thank you for your kind referral. CHARLOTTE PIMENTEL M.D. [id number]
== END 2017-02-14 10:59 | disposition home or self-care (01) ==
LOC: JER 14:26 → JERBED 18:32 → J4W 23:00
PROVIDERS: ADMIT Family Medicine; ATTEND Family Medicine
DX: R42 Dizziness and giddiness (principal); R53.1 Weakness; I10 Essential (primary) hypertension; E78.5 Hyperlipidemia, unspecified; E03.9 Hypothyroidism, unspecified; Z88.1 Allergy status to other antibiotic agents; Z88.2 Allergy status to sulfonamides; Z88.6 Allergy status to analgesic agent
CPT/HCPCS: 36415; 70450-TC; 70544-TC; 70547-TC; 70551-TC; 71010-TC; 80053; 80061; 81003; 83605; 83721; 83735; 84484; 85025; 85027; 87040; 87086; 93005; 93010; 99283-25; G0378

== ENCOUNTER 2018-12-04 09:11 | Emergency (ER) | payer OTHER ==
--- NOTE | 2018-12-04 09:21 | PDOC ---
History of Present Illness - History of Present Illness Initial Comments: 12/04/18 09:21 Ms. Wasserman is a 73 yo female w/ pmh of HTN, venous insufficiency, and hypothyroidism who presents for evaluation of 1 day history of weakness and dizziness. Patient reports this is similar to an epidose in Feb 2017 patient had full (negative) neurological evaluation for. Of note, patient is recently returned from [place]. Patient additionally is scheduled for US evaluation of RLE that is mildly swollen. Denies any chest pain, shortness of breath, or other symptoms. Reports dizziness is increased with movement of her head. The patient denies chest pain, shortness of breath, and headache. Denies fever, chills, nausea, vomit, diarrhea and constipation. Denies dysuria, frequency, urgency and hematuria. <Willy Toribio - Last Filed: 12/04/18 12:31> <Annmarie Savage - Last Filed: 12/07/18 23:12> - General Chief Complaint: Lightheaded Stated Complaint: Lightheaded Time Seen by Provider: 12/04/18 09:21 Past History - Past Medical History Anemia: No Asthma: No Cancer: No Cardiac Disorders: No CVA: No COPD: No CHF: No Dementia: No Diabetes: No GI Disorders: No Disorders: No HTN: Yes Hypercholesterolemia: Yes Liver Disease: No Seizures: No Thyroid Disease: Yes - Surgical History Abdominal Surgery: No Appendectomy: No Cardiac Surgery: No Cholecystectomy: No Lung Surgery: No Neurologic Surgery: No Orthopedic Surgery: No - Suicide/Smoking/Psychosocial Hx Smoking History: Never smoked Have you smoked in the past 12 months: No Hx Alcohol Use: No Drug/Substance Use Hx: No Substance Use Type: None <Willy Toribio - Last Filed: 12/04/18 12:31> <Annmarie Savage - Last Filed: 12/07/18 23:12> - Past Medical History Allergies/Adverse Reactions: Allergies Allergy/AdvReac Type Severity Reaction Status Date / Time amoxicillin trihydrate Allergy Vomiting Verified 12/04/18 09:29 [From Augmentin] aspirin Allergy Verified 12/04/18 09:29 potassium clavulanate Allergy Vomiting Verified 12/04/18 09:29 [From Augmentin] Sulfa (Sulfonamide Allergy Verified 12/04/18 09:29 Antibiotics) Home Medications: Ambulatory Orders Levothyroxine [Synthroid -] 88 mcg PO DAILY 08/23/13 Metoprolol Succinate [Toprol XL -] 25 mg PO DAILY #30 tab 02/14/17 Ciprofloxacin HCl [Cipro] 500 mg PO DAILY #3 tablet 12/04/18 Losartan Potassium 50 mg PO DAILY 12/04/18 Meclizine HCl 25 mg PO TID PRN #15 tablet 12/04/18 Review of Systems - Review of Systems Comments:: 12/04/18 09:48 GENERAL/CONSTITUTIONAL: No fever or chills. No weakness. HEAD, EYES, EARS, NOSE AND THROAT: No change in vision. No ear pain or discharge. No sore throat. CARDIOVASCULAR: No chest pain or shortness of breath RESPIRATORY: No cough, wheezing, or hemoptysis. GASTROINTESTINAL: No nausea, vomiting, diarrhea or constipation. GENITOURINARY: No dysuria, frequency, or change in urination. MUSCULOSKELETAL: +RLE swelling. No joint or muscle swelling or pain. No neck or back pain. SKIN: No rash NEUROLOGIC: +Positional dizziness as described. No headache, loss of consciousness, or change in strength/sensation. ENDOCRINE: No increased thirst. No abnormal weight change HEMATOLOGIC/LYMPHATIC: No anemia, easy bleeding, or history of blood clots. ALLERGIC/IMMUNOLOGIC: No hives or skin allergy. <Willy Toribio - Last Filed: 12/04/18 12:31> *Physical Exam - Physical Exam Comments: 12/04/18 09:49 GENERAL: Awake, alert, and fully oriented, in no acute distress HEAD: No signs of trauma, normocephalic, atraumatic EYES: PERRLA, EOMI, sclera anicteric, conjunctiva clear ENT: Auricles normal inspection, hearing grossly normal, nares patent, oropharynx clear without exudates. Moist mucosa NECK: Normal ROM, supple, no lymphadenopathy, JVD, or masses LUNGS: No distress, speaks full sentences, clear to auscultation bilaterally HEART: Regular rate and rhythm, normal S1 and S2, no murmurs, rubs or gallops, peripheral pulses normal and equal bilaterally. ABDOMEN: Soft, nontender, normoactive bowel sounds. No guarding, no rebound. No masses EXTREMITIES: +Mild RLE pedal edemaLegs TTP SANDY c/w patient's venous insufficiency. Normal inspection, Normal range of motion, no edema. No clubbing or cyanosis. NEUROLOGICAL: Cranial nerves II through XII grossly intact. Normal speech, normal gait, no focal sensorimotor deficits SKIN: Warm, Dry, normal turgor, no rashes or lesions noted. <Willy Toribio - Last Filed: 12/04/18 12:31> - Vital Signs Last Vital Signs Temp Pulse Resp BP Pulse Ox 98.2 F 72 18 123/71 98 12/04/18 12:57 12/04/18 12:57 12/04/18 12:57 12/04/18 12:57 12/04/18 12:57 <Annmarie Savage - Last Filed: 12/07/18 23:12> ED Treatment Course - LABORATORY CBC & Chemistry Diagram: 12/04/18 09:45 12/04/18 09:45 <Willy Toribio - Last Filed: 12/04/18 12:31> - LABORATORY CBC & Chemistry Diagram: 12/04/18 09:45 12/04/18 09:45 - ADDITIONAL ORDERS Additional order review: 12/04/18 11:00 Urine Culture - Final Urine - Urine Clean Catch Escherichia Coli 12/04/18 09:45 RBC 4.11 MCV 84.8 MCHC 32.6 RDW 15.0 MPV 7.3 L Neutrophils % 61.1 Lymphocytes % 29.4 Monocytes % 6.3 Eosinophils % 2.1 Basophils % 1.1 - Medications Given in the ED: ED Medications Discontinued Medications Generic Name Dose Route Start Last Admin Trade Name Freq PRN Reason Stop Dose Admin Sodium Chloride 1,000 mls @ 1,000 mls/hr 12/04/18 09:23 12/04/18 09:29 Normal Saline - IV 12/04/18 10:22 1,000 mls/hr ASDIR STA Administration Lorazepam 1 mg 12/04/18 11:13 12/04/18 12:13 Ativan Injection - IVPUSH 12/04/18 11:14 1 mg ONCE ONE Administration Meclizine HCl 25 mg 12/04/18 09:23 12/04/18 09:46 Antivert - PO 12/04/18 09:24 25 mg ONCE ONE Administration Ondansetron HCl 4 mg 12/04/18 09:23 12/04/18 09:46 Zofran Injection IVPUSH 12/04/18 09:24 4 mg ONCE ONE Administration Sodium Chloride 1,000 ml 12/04/18 11:13 12/04/18 12:13 Normal Saline - IV 12/04/18 11:14 1,000 ml ONCE ONE Administration <Annmarie Savage - Last Filed: 12/07/18 23:12> Medical Decision Making - Medical Decision Making 12/04/18 12:31 Ms. Wasserman is a 73 yo female w/ pmh as described who presents for evaluation of symptoms concerning for CVA vs. dehydration vs. electrolyte imbalance. Patient evaluated with labs as below as well as EKG and US for r/o DVT. US negative for acute process, EKG normal sinus. Patient reports improvement of symptoms following meclizine and ativan x1. Patient also incidentally noted to have UTI. Rx for ABX as well as meclizine sent to patient's pharmacy. Concern for acute process low at this time. Discharging to home for further outpatient follow-up as needed. Laboratory Results - last 24 hr 12/04/18 12/04/18 12/04/18 09:45 09:45 11:00 WBC 6.3 RBC 4.11 Hgb 11.4 Hct 34.9 MCV 84.8 MCH 27.7 MCHC 32.6 RDW 15.0 Plt Count 189 MPV 7.3 L Absolute Neuts (auto) 3.8 Neutrophils % 61.1 Lymphocytes % 29.4 Monocytes % 6.3 Eosinophils % 2.1 Basophils % 1.1 Nucleated RBC % 0 Sodium 142 Potassium 3.8 Chloride 111 H Carbon Dioxide 24 Anion Gap 7 L BUN 18 Creatinine 0.7 Est GFR (CKD-EPI)AfAm 99.62 Est GFR (CKD-EPI)NonAf 85.95 Random Glucose 93 Calcium 8.6 Magnesium 2.1 Total Bilirubin 0.4 AST 15 ALT 19 Alkaline Phosphatase 74 Creatine Kinase 91 Troponin I < 0.02 Total Protein 6.7 Albumin 3.2 L Urine Color Yellow Urine Appearance Clear Urine pH 6.5 Ur Specific [place] 1.007 L Urine Protein Negative Urine Glucose (UA) Negative Urine Ketones Negative Urine Blood Negative Urine Nitrite Positive H Urine Bilirubin Negative Urine Urobilinogen 0.2 Ur Leukocyte Esterase Trace Urine WBC (Auto) 4 Urine RBC (Auto) 1 Urine Casts (Auto) 2 U Epithel Cells (Auto) 3.4 Urine Bacteria (Auto) 2641.5 <Willy Toribio - Last Filed: 12/04/18 12:31> *DC/Admit/Observation/Transfer <Willy Toribio - Last Filed: 12/04/18 12:31> <Annmarie Savage - Last Filed: 12/07/18 23:12> Diagnosis at time of Disposition: Dizziness, UTI (urinary tract infection) - Discharge Dispostion Disposition: HOME - Prescriptions Prescriptions: Ciprofloxacin HCl [Cipro] 500 mg PO DAILY #3 tablet Meclizine HCl 25 mg PO TID PRN #15 tablet PRN Reason: Vertigo - Patient Instructions Printed Discharge Instructions: DI for Vertigo, DI for Urinary Tract Infection (UTI) Additional Instructions: You were evaluated today in the ER for your symptoms. We performed laboratory evaluation as well as EKG and leg ultrasound. We noted you to have a UTI however no other concerning findings. We sent prescriptions for meclizine as well as antibiotics to your pharmacy. Please take all medications as proscribed. We believe you are safe for discharge and further outpatient follow- up as needed. Please return to ER if any fever, return of vertigo not controllable with medications, pain, or other concerning symptoms.
[2018-12-04] MEDS ORDERED: ONDANSETRON 4 MG/2 ML VIAL IVPUSH ONE (09:23)
[2018-12-04] MEDS ORDERED: SODIUM CHLORIDE 1,000 ML IV STA (09:23)
[2018-12-04] MEDS ORDERED: MECLIZINE HCL 25 MG TABLET (FP) PO ONE (09:23)
--- NOTE | 2018-12-04 09:25 | PDOC ---
Attending Attestation - Resident Resident Name: Willy Toribio - ED Attending Attestation I have performed the following: I have examined & evaluated the patient, The case was reviewed & discussed with the resident, I agree w/resident's findings & plan - HPI HPI: 12/04/18 09:34 73 YOF with h/o HTN, hypothyroidism, vertigo presenting with acute onset of vertigo/dizziness. no recent prodromal sx or URI sx or allergies. +sensation of ears clogging, +nausea; no vomiting. no focal weakness or paresthesias or visual/hearing changes. no headache. +left sided neck pain, no trauma or falls. Admitted 02/2017 for vertigo and HTN control - at that time, had neg workup including laboratory results, EKG. CXR and CT head/MRI/MRA brain/neck with microvascular changes, but no acute stroke/bleed or vessel occlusion. 12/04/18 11:14 - Physicial Exam PE: 12/04/18 09:33 Agree with the resident's HPI and PE as documented in the electronic medical record. NAD, well appearing, EOMI, PERRL, MMM, nl conjunctiva, anicteric; neck supple. lungs clear, RRR, abdomen soft nontender. Back nontender. CROOK x4, no focal neuro deficits. No peripheral edema. normal color for ethnicity, WWP. Alert, oriented to person time and place. no nystagmus, No carotid bruit, CN II- XII grossly intact. Strength prox and distally 5/5 throughout. Sensation grossly intact to light touch. CROOK x4. No cerebellar signs, no dysmetria, bilateral finger to nose equal and symmetric. Speech clear. 12/04/18 09:35 12/04/18 11:14 - Medical Decision Making 12/04/18 09:32 See HPI for details. Prior notes reviewed, including admissions, discharges and consultations. Vital signs reviewed, wnl. DDX BPPV, peripheral vs central vertigo, CVA, electrolyte/metabolic derangements , ACS. laboratory results and imaging reviewed, basic labs and lytes wnl, Cardiac panel_neg trop. reassuring less likely cardiac EKG normal sinus rhythm at 74 bpm, no interval abnormalities, narrow QRS, ST and T wave segments and morphology normal. Nonspecific T wave abnormalities - no change. ED course -interventions: meclizine, zofran, IVF. feels better but still unsteady and mildly symptomatic. - LE duplex neg for DVT 12/04/18 11:15 - additional meds given, ativan 1mg, IVF, reassess feels clinically improved, able to ambulate. 12/04/18 12:50 - UA with nitrites, asha with ?infection, with prior history of UTIs, f/u culture, treat with cipro per prior abx regimen x 3 days. rx meclizine prn vertigo/dizziness. Pt to be discharged in stable condition. Patient and family made aware of clinical impression, treatment recommendations and disposition plan, return precautions discussed (including but not limited to new or persistent/worsening symptoms, pain, fevers, or signs of infection, chest pain, respiratory distress , inability to tolerate oral intake, dehydration, syncope, or neurologic changes ). Follow up with PMD and/or neuro specialist as recommended, follow up information provided, take medications as instructed for duration of time. continue with supportive care, avoid triggers and precipitants. All questions answered to patient's satisfaction and expressed understanding and comfort with this. At the time of discharge, the patient is alert, clinically improved, tolerating po and verbalizes understanding of instructions, satisfied with the care received and felt comfortable with the plan. Patient does not suffer from an acute life-threatening medical condition at this time and is safe for outpatient follow-up. 12/04/18 12:51 Heart Score/ECG Review #1 ECG reviewed & interpreted by me at: 09:20 General ECG Interpretation: Sinus Rhythm, Normal Rate, Normal Intervals, No acute ischemic changes Compared to previous ECG there are: No significant change 12/04/18 09:33 EKG normal sinus rhythm at 74 bpm, no interval abnormalities, narrow QRS, ST and T wave segments and morphology normal. Nonspecific T wave abnormalities - no change.
[2018-12-04 09:29] VITALS: BMI 30.9
[2018-12-04] MEDS ORDERED: ONDANSETRON 4 MG/2 ML VIAL ONE (09:34)
[2018-12-04] MEDS ORDERED: MECLIZINE HCL 12.5 MG TABLET ONE (09:34)
[2018-12-04 10:05] LABS: BASO % 1.1 % (0-2.0); EOS % 2.1 % (0-4.5); HEMATOCRIT 34.9 % (32.4-45.2); HEMOGLOBIN 11.4 GM/dL (10.7-15.3); LYMPH % 29.4 % (8-40); MCH 27.7 pg (25.7-33.7); MCHC 32.6 g/dl (32.0-36.0); MEAN CELL VOLUME 84.8 fl (80-96); MEAN PLT VOLUME 7.3 fl (7.5-11.1); MONO % 6.3 % (3.8-10.2); NEUT % 61.1 % (42.8-82.8); PLATELET COUNT 189 K/MM3 (134-434); RBC 4.11 M/mm3 (3.60-5.2); WHITE BLOOD COUNT 6.3 K/mm3 (4.0-10.0)
[2018-12-04 10:33] LABS: ALBUMIN 3.2 g/dl (3.4-5.0); ALK PHOS 74 U/L (45-117); ANION GAP 7 MMOL/L (8-16); BILIRUBIN,TOTAL 0.4 mg/dL (0.2-1); BLOOD UREA NITROGEN 18 mg/dL (7-18); CALCIUM 8.6 mg/dL (8.5-10.1); CHLORIDE 111 mmol/L (98-107); CO2 24 mmol/L (21-32); CREATININE 0.7 mg/dL (0.55-1.3); GLUCOSE,RANDOM 93 mg/dL (74-106); MAGNESIUM 2.1 mg/dL (1.8-2.4); POTASSIUM 3.8 mmol/L (3.5-5.1); SGOT/AST 15 U/L (15-37); SGPT/ALT 19 U/L (13-61); SODIUM 142 mmol/L (136-145); TOT PROT 6.7 g/dl (6.4-8.2)
[2018-12-04] MEDS ORDERED: SODIUM CHLORIDE 0.9% 500 ML INFUS.BAG IV ONE (11:13)
[2018-12-04 11:40] LABS: EPI CELLS 3.4 /HPF (0-5/HPF); HYALINE CASTS 2 /lpf (0-8); PH,URINE 6.5 (5.0-8.0); URINE APPEARANCE CLEAR; URINE BACTERIA 2641.5 /hpf (NEGATIVE); URINE BILIRUBIN NEGATIVE (NEGATIVE); URINE COLOR YELLOW; URINE GLUCOSE (UA) NEGATIVE (NEGATIVE); URINE KETONE NEGATIVE (NEGATIVE); URINE LEUK ESTERASE TRACE (NEGATIVE); URINE NITRITE POSITIVE (NEGATIVE); URINE PROTEIN NEGATIVE (NEGATIVE); URINE RBC 1 /hpf (0-4); URINE UROBILINOGEN 0.2 mg/dL (0.2-1.0); URINE WBC 4 /hpf (0-5)
[2018-12-04] MEDS ORDERED: LORazepam 2 MG/ML SDV VIAL ONE (11:58)
[2018-12-04 12:58] VITALS: BP 123/71; PULSE 72; TEMP 98.2
--- NOTE | 2018-12-04 15:04 | EKG ---
Test Reason : Blood Pressure : / mmHG Vent. Rate : 074 BPM Atrial Rate : 074 BPM P-R Int : 158 ms QRS Dur : 078 ms QT Int : 402 ms P-R-T Axes : 033 -12 -02 degrees QTc Int : 446 ms NORMAL SINUS RHYTHM NONSPECIFIC ST ABNORMALITY ABNORMAL ECG WHEN COMPARED WITH ECG OF 13-FEB-2017 14:42, NO SIGNIFICANT CHANGE WAS FOUND Confirmed by TIMOTEO ROONEY MD ([id number]) on 12/04/2018 3:04:26 PM Referred By: Confirmed By:TIMOTEO ROONEY MD
== END 2018-12-04 13:15 | disposition home or self-care (01) ==
LOC: JER 09:11
PROC: 3E0337Z Introduction of Electrolytic and Water Balance Substance into Peripheral Vein, Percutaneous Approach (ICD-10-PCS; principal; 2018-12-04)
PROC: 3E033GC Introduction of Other Therapeutic Substance into Peripheral Vein, Percutaneous Approach (ICD-10-PCS; 2018-12-04)
DX: R42 Dizziness and giddiness (principal)
CPT/HCPCS: 36415; 80053; 81003; 82550; 83735; 84484; 85025; 87086; 87186; 93005; 93010; 93970-TC; 96361; 96374; 96375; 99283-25; J7030

== ENCOUNTER 2019-01-29 15:25 | Inpatient (IN) | payer OTHER ==
[2019-01-29] MEDS ORDERED: ACETAMINOPHEN 1000 MG/100 ML VIAL (NON FORMULARY) IVPB ONE (16:52)
[2019-01-29] MEDS ORDERED: SODIUM CHLORIDE 0.9% 500 ML INFUS.BAG IV ONE ×2 (16:53→18:11)
[2019-01-29] MEDS ORDERED: ACETAMINOPHEN INJECTION 100 ML IVPB ONE (17:11)
[2019-01-29 17:48] LABS: HEMATOCRIT 32.9 % (32.4-45.2); HEMOGLOBIN 11.1 GM/dl (10.7-15.3); MCH 27.4 pg (25.7-33.7); MCHC 33.8 g/dl (32.0-36.0); MEAN PLT VOLUME 8.3 fl (7.5-11.1); PLATELET COUNT 70 K/MM3 (134-434); RBC 4.06 M/mm3 (3.60-5.2); RDW 14.9 % (11.6-15.6); WHITE BLOOD COUNT 5.6 K/mm3 (4.0-10.8)
[2019-01-29 17:53] LABS: ALBUMIN 3.1 g/dl (3.4-5.0); BILIRUBIN,TOTAL 1.2 mg/dl (0.2-1); CALCIUM 8.3 mg/dl (8.5-10); CREATININE 0.6 mg/dl (0.55-1.3); POTASSIUM 4.4 mmol/L (3.5-5.1)
--- NOTE | 2019-01-29 17:55 | PDOC ---
History of Present Illness - General Chief Complaint: Respiratory Stated Complaint: FEVER & CHILLS Time Seen by Provider: 01/29/19 15:51 History Source: Patient, Family Exam Limitations: No Limitations - History of Present Illness Initial Comments: 01/29/19 17:00 73YOF with h/o HTN, hypothyroidism, vertigo, and UTI diagnosed earlier this week (has been on Macrobid x4 doses) who p/w fever and headache x3 days in the setting of recent UTI for which she received four doses of Macrobid so far. The patient's family member, Dr. Elsie Wasserman, calls ahead to inform us of the patient and notified us that she recently had CBC results showing thrombocytopenia. The patient has had fever at home for which she took Tylenol this morning, also headache and head-to-toe body aches. She denies chest pain, SOB, neck pain, vision changes, abdominal pain, back pain, nausea, vomiting, diarrhea, or constipation. Past History - Past Medical History Allergies/Adverse Reactions: Allergies Allergy/AdvReac Type Severity Reaction Status Date / Time amoxicillin trihydrate Allergy Vomiting Verified 01/29/19 16:35 [From Augmentin] aspirin Allergy Verified 01/29/19 16:35 potassium clavulanate Allergy Vomiting Verified 01/29/19 16:35 [From Augmentin] Sulfa (Sulfonamide Allergy Verified 01/29/19 16:35 Antibiotics) Home Medications: Ambulatory Orders Levothyroxine [Synthroid -] 88 mcg PO DAILY 08/23/13 Metoprolol Succinate [Toprol XL -] 25 mg PO DAILY #30 tab 02/14/17 Candesartan Cilexetil [Atacand] 32 mg PO DAILY 01/29/19 Anemia: No Asthma: No Cancer: No Cardiac Disorders: No CVA: No COPD: No CHF: No Dementia: No Diabetes: No GI Disorders: No Disorders: No HTN: Yes Hypercholesterolemia: Yes Liver Disease: No Seizures: No Thyroid Disease: Yes - Surgical History Abdominal Surgery: No Appendectomy: No Cardiac Surgery: No Cholecystectomy: No Lung Surgery: No Neurologic Surgery: No Orthopedic Surgery: No - Suicide/Smoking/Psychosocial Hx Smoking History: Never smoked Have you smoked in the past 12 months: No Hx Alcohol Use: No Drug/Substance Use Hx: No Substance Use Type: None Review of Systems - Review of Systems Able to Perform ROS?: Yes Comments:: 01/29/19 18:15 GEN: fever, chills, malaise, generalized weakness, no weight change HEENT: no ear pain, sore throat, vision change, or eye pain CV: no chest pain, palpitations, lightheadedness, syncope, or edema RESP: no cough, wheezing, or SOB GI: no abdominal pain, nausea, vomiting, diarrhea, constipation, or white/black/ bloody stool : no hematuria, incontinence, retention, bleeding, or discharge MSK: no neck/back pain, muscle weakness/pain, or joint swelling/pain NEURO: headache, no seizure, vertigo, numbness, tingling, or focal weakness PSYCH: no substance use, no behavior change SKIN: no jaundice, no rash ROS otherwise negative except as noted in HPI *Physical Exam - Vital Signs Last Vital Signs Temp Pulse Resp BP Pulse Ox 102.3 F H 96 H 18 138/84 100 01/29/19 15:40 01/29/19 15:40 01/29/19 15:40 01/29/19 15:40 01/29/19 15:40 - Physical Exam Comments: 01/29/19 18:15 GENERAL: tired but otherwise nontoxic-appearing, A/Ox4, no distress, answers questions appropriately HEENT: PERRLA, EOMI, moist mucous membranes NECK/BACK: no midline ttp, no spinal stepoff or deformity, no hematoma, full ROM , neck supple CARDIOVASCULAR: regular rate/rhythm, normal S1S2, no MGR, strong peripheral pulses, capillary refill <2 seconds, extremities wwp, no edema LUNGS/RESPIRATORY: no respiratory distress, CTAB GI/ABDOMEN: symmetric [id number], normoactive BS, soft, no ttp, no midline pulsatile masses : no CVA tenderness EXTREMITIES: no muscle atrophy, no acute deformity SKIN: hot to the touch, warm and dry, no pallor, no jaundice, no rash, no bruising, no skin breakdown, no cuts, no lesions NEUROLOGICAL: GCS 15, CN II-XII grossly intact, 5/5 strength proximally and distally, no facial droop ED Treatment Course - LABORATORY CBC & Chemistry Diagram: 01/29/19 17:15 01/29/19 17:15 - RADIOLOGY Radiology Studies Ordered: Category Date Time Status CHEST X-RAY PORTABLE* [RAD] Stat Radiology 01/29/19 17:02 Completed - Medications Given in the ED: ED Medications Discontinued Medications Generic Name Dose Route Start Last Admin Trade Name Doc PRN Reason Stop Dose Admin Acetaminophen 1,000 mg 01/29/19 16:52 01/29/19 17:32 Ofirmev Injection - IVPB 01/29/19 16:53 1,000 mg ONCE ONE Administration Sodium Chloride 1,000 ml 01/29/19 16:53 01/29/19 17:32 Normal Saline - IV 01/29/19 16:54 1,000 ml ONCE ONE Administration Medical Decision Making - Medical Decision Making 01/29/19 18:02 Elderly Pt p/w fever and headache, no reported mechanism for injury, no new red flag symptoms (see HPI). Initial Vital Signs Temp Pulse Resp BP Pulse Ox 102.3 F H 96 H 18 138/84 100 01/29/19 15:40 01/29/19 15:40 01/29/19 15:40 01/29/19 15:40 01/29/19 15:40 Exam: As noted in Physical Exam section. DDX IBNLT: Most likely UTI/pyelonephritis/PNA/viral illness, less likely SAH or SDH, meningitis, mass lesion, brain metastasis (varinder. known CA patients and/or IBRAHIM with increasing severity/frequency), etc W/U ordered: Sepsis order set TX ordered: Ofirmev EKG: Reviewed; results as noted in ECG Review section. CXR: Nothing acute Laboratory Tests 01/29/19 01/29/19 01/29/19 17:00 17:00 17:15 WBC RBC Hgb Hct MCV MCH MCHC RDW Plt Count MPV Absolute Neuts (auto) Neutrophils % Lymphocytes % PT with INR INR PTT (Actin FS) Sodium Potassium Chloride Carbon Dioxide Anion Gap BUN Creatinine Est GFR (CKD-EPI)AfAm Est GFR (CKD-EPI)NonAf Random Glucose Calcium Total Bilirubin AST ALT Alkaline Phosphatase LD Total 257 H Creatine Kinase 41 CK-MB (CK-2) Troponin I 0.01 Total Protein Albumin 01/29/19 01/29/19 01/29/19 17:15 17:15 17:15 WBC 5.6 RBC 4.06 Hgb 11.1 Hct 32.9 MCV 81.0 MCH 27.4 MCHC 33.8 RDW 14.9 Plt Count 70 L MPV 8.3 Absolute Neuts (auto) 2.6 Neutrophils % No Result Required. Lymphocytes % No Result Required. PT with INR INR PTT (Actin FS) 35.5 Sodium 135 L Potassium 4.4 Chloride 107 Carbon Dioxide 24 Anion Gap 4 L BUN 12.0 Creatinine 0.6 Est GFR (CKD-EPI)AfAm 104.80 Est GFR (CKD-EPI)NonAf 90.42 Random Glucose 101 Calcium 8.3 L Total Bilirubin 1.2 H AST 67 H ALT 66 H Alkaline Phosphatase 108 LD Total Creatine Kinase CK-MB (CK-2) 1.0 Troponin I Total Protein 7.0 Albumin 3.1 L 01/29/19 17:15 WBC RBC Hgb Hct MCV MCH MCHC RDW Plt Count MPV Absolute Neuts (auto) Neutrophils % Lymphocytes % PT with INR 15.9 H INR 1.43 H PTT (Actin FS) Sodium Potassium Chloride Carbon Dioxide Anion Gap BUN Creatinine Est GFR (CKD-EPI)AfAm Est GFR (CKD-EPI)NonAf Random Glucose Calcium Total Bilirubin AST ALT Alkaline Phosphatase LD Total Creatine Kinase CK-MB (CK-2) Troponin I Total Protein Albumin 01/29/19 19:03 The Pt is unsafe for discharge at this time. They require further hospital observation, workup, and treatment. Microblog sent to [facility] for admission.Blank Decision to Admit order is placed per ED protocol. Dr. Mcgarry spoke with admitting team technology sales representative, in agreement Pt to be admitted. Decision to Admit order placed to admitting team covering attending Dr. Hayward. *DC/Admit/Observation/Transfer Diagnosis at time of Disposition: UTI (urinary tract infection), Fever, Headache - Discharge Dispostion Condition at time of disposition: Guarded Decision to Admit order: Yes - Referrals Referrals: Dory Espinosa MD [Primary Care Provider] - - Patient Instructions - Post Discharge Activity
--- NOTE | 2019-01-29 17:58 | PDOC ---
Attending Attestation - Resident Resident Name: Cecilia Hernandez - ED Attending Attestation I have performed the following: I have examined & evaluated the patient, The case was reviewed & discussed with the resident, I agree w/resident's findings & plan, Exceptions are as noted - HPI HPI: 01/29/19 17:58 73y F hx of hypothyroidism, htn, venous insufficiency presents for evaluation of fever for the past 4 days. Pt states it started off as body aches, occasoinal fever, headache (usually when febrile, goes away when fever goes down ), burning with urination - she was treated with macrobid asa n utpatient but fever persisted, she had lab work this morning as an outpatient that revealed plt of 48k and lfts that were slightyl elevated. pt denies any cp, sob, cough, sore throat, ear pain, neck pain, back pain, abd pain, rashes, diarrhea. pt denies any risk of exposures to tick borne illness. GENERAL: The patient is awake, alert, and fully oriented, Nontoxic - in no acute distress. HEAD: Normocephalic, atraumatic. EYES: extraocular movements intact, sclera anicteric, conjunctiva clear. ENT: Normal voice, Moist mucous membranes. NECK: Normal range of motion, supple, neg kernigs/brudzinsky LUNGS: Breath sounds equal, clear to auscultation bilaterally. No wheezes, no rhonchi, no rales. HEART: Regular rate and rhythm, normal S1 and S2 without murmur, rub or gallop. ABDOMEN: Soft, nontender, No guarding, no rebound. No CVA tenderness EXTREMITIES: Normal range of motion, no edema. NEUROLOGICAL: No facial assymetry, Normal speech, movng all 4 exremities sponatnouesly and symmetrically PSYCH: Normal mood, normal affect. SKIN: hot to touch, Dry, normal turgor, ddx - uro sepsis, no cva tenderness to suggest pylo, possible viral illness vs tick borne illness no clnical signs of meningitis no clinical signs to suggest acute intrabdominal pathology/pna will ck labs tylenol for fever will reassess - Physicial Exam PE: 01/29/19 18:57 see above - Medical Decision Making 01/29/19 18:57 labs reviewed case dw dr. noel will admit for FOU - possibly drug reaction from macrobid vs other infection Heart Score/ECG Review - ECG Impressions Comment:: 01/29/19 18:53 Twelve-lead EKG was performed and reviewed by me. There is normal sinus rhythm with a normal rate. rate of 93 The intervals are normal. There is normal R wave progression nonspecific tw abnormaltiies
[2019-01-29 18:34] LABS: INR 1.43 (0.82-1.09); PROTHROMBIN TIME (PATIENT) 15.9 SEC (10.2-13.0)
[2019-01-29] MEDS ORDERED: CEFTRIAXONE 1 GM in DEXTROSE 5%-WATER - 50 ML IVPB ONE (18:35)
[2019-01-29] MEDS ORDERED: cefTRIAXone SODIUM 1 GM VIAL ONE (18:55)
--- NOTE | 2019-01-29 19:07 | HP ---
Admitting History and Physical - Primary Care Physician PCP: Yoan Cordon - Admission Chief Complaint: fevers, headache, dysuria History Source: Patient, Family Member (2 daughters) Limitations to Obtaining History: No Limitations - Past Medical History Cardiovascular: Yes: HTN Renal/: Yes: UTI (dx 4 days ago-prescribed macrobid) Endocrine: Yes: Hypothyroidism - Smoking History Smoking history: Never smoked Have you smoked in the past 12 months: No - Alcohol/Substance Use Hx Alcohol Use: No - Social History Usual Living Arrangement: Yes: With Spouse History of Recent Travel: Yes ([facility] 2 months ago) Home Medications - Allergies Allergies/Adverse Reactions: Allergies Allergy/AdvReac Type Severity Reaction Status Date / Time amoxicillin trihydrate Allergy Vomiting Verified 01/29/19 16:35 [From Augmentin] aspirin Allergy Verified 01/29/19 16:35 potassium clavulanate Allergy Vomiting Verified 01/29/19 16:35 [From Augmentin] Sulfa (Sulfonamide Allergy Verified 01/29/19 16:35 Antibiotics) - Home Medications Home Medications: Ambulatory Orders Levothyroxine [Synthroid -] 88 mcg PO DAILY 08/23/13 Metoprolol Succinate [Toprol XL -] 25 mg PO DAILY #30 tab 02/14/17 Candesartan Cilexetil [Atacand] 32 mg PO DAILY 01/29/19 Family Disease History - Family Disease History Family History: Denies Review of Systems - Review of Systems Constitutional: reports: Chills, Fever Eyes: reports: No Symptoms HENT: reports: No Symptoms Neck: reports: No Symptoms Cardiovascular: reports: No Symptoms Respiratory: reports: No Symptoms Gastrointestinal: reports: Abdominal Pain Genitourinary: reports: Dysuria Breasts: reports: No Symptoms Reported Musculoskeletal: reports: Muscle Pain Integumentary: reports: No Symptoms Neurological: reports: Headache Endocrine: reports: No Symptoms Hematology/Lymphatic: reports: No Symptoms Psychiatric: reports: No Symptoms Physical Examination Vital Signs: Vital Signs Temperature 98.5 F 01/29/19 18:54 Pulse Rate 100 H 01/29/19 18:54 Respiratory Rate 01/29/19 18:54 Blood Pressure 106/59 L 01/29/19 18:54 O2 Sat by Pulse Oximetry (%) 96 01/29/19 18:54 Constitutional: Yes: Well Nourished, No Distress, Calm Eyes: Yes: WNL, Conjunctiva Clear, EOM Intact HENT: Yes: WNL, Atraumatic, Normocephalic Neck: Yes: WNL, Supple, Trachea Midline Cardiovascular: Yes: WNL, Regular Rate and Rhythm Respiratory: Yes: WNL, Regular, CTA Bilaterally Gastrointestinal: Yes: WNL, Normal Bowel Sounds, Soft ...Rectal Exam: Yes: Deferred Renal/: Yes: WNL Breast(s): Yes: WNL Musculoskeletal: Yes: WNL Extremities: Yes: WNL Edema: No Peripheral Pulses WNL: Yes Integumentary: Yes: WNL Neurological: Yes: WNL, Alert, Oriented ...Motor Strength: WNL Psychiatric: Yes: WNL, Alert, Oriented Labs: CBC, BMP 01/29/19 17:15 01/29/19 17:15 Imaging - Results Chest X-ray: Image Reviewed (increased intersisital marking BL) Problem List - Problems (1) Hypothyroidism Assessment/Plan: c/w synthroid Code(s): E03.9 - HYPOTHYROIDISM, UNSPECIFIED (2) HTN (hypertension) Assessment/Plan: c/w metoprolol with hold parameters Code(s): I10 - ESSENTIAL (PRIMARY) HYPERTENSION (3) PVD (peripheral vascular disease) Code(s): I73.9 - PERIPHERAL VASCULAR DISEASE, UNSPECIFIED (4) Fever Assessment/Plan: afebrile after tylenol tylenol prn blood, urine cx pending tick borne serologies pending/blood smear pending hepatatis serologies pending c/w doxycycline and rocephine ID consultation appreciated Code(s): R50.9 - FEVER, UNSPECIFIED (5) Vertigo Assessment/Plan: asymptomatic presently can give meclazine if returns Code(s): R42 - DIZZINESS AND GIDDINESS (6) Prophylactic measure Assessment/Plan: FEN fluid bolus given in ED monitor electrolytes regular diet DVT no chemical prohplaxys needed Dispo admit to med surg bed full code discharge planning Code(s): Z29.9 - ENCOUNTER FOR PROPHYLACTIC MEASURES, UNSPECIFIED (7) Thrombocytopenia Assessment/Plan: trend plt daily avoid all agents that can add to thrombocytopenia if decreases consider hematology consult in am Code(s): D69.6 - THROMBOCYTOPENIA, UNSPECIFIED Visit type - Emergency Visit Emergency Visit: Yes ED Registration Date: 01/29/19 Care time: The patient presented to the Emergency Department on the above date and was hospitalized for further evaluation of their emergent condition. - New Patient This patient is new to me today: Yes Date on this admission: 01/29/19 - Critical Care Critical Care patient: No
[2019-01-29 19:53] LABS: PLATELET ESTIMATE DECREASED
[2019-01-29] MEDS ORDERED: ACETAMINOPHEN 325 MG TABLET (FP) PO PRN (20:59)
[2019-01-29] MEDS: SODIUM CHLORIDE 1,000 ML IV SCH (22:02)
--- NOTE | 2019-01-29 22:04 | PN ---
Progress Note (short form) - Note Progress Note: ID consult dictated imp/reccd fever thrombocytopenia dysuria abnl lfts diff diagnosis broad ?reaction to macrobid ?tick related illness, ?viral process rising lfts, high ldh- ?hemolysis- ?babesia, ?reaction to macrobid continue ivf rocephin/doxycycline blood smear r/o babesia lyme/anaplasm pcr, ehrlichia pcr all pending blood cultures urine culture ua may be negative from the macrobid hemolysis workup repeat labs in am will follow with you Problem List - Problems (1) Fever Code(s): R50.9 - FEVER, UNSPECIFIED (2) Thrombocytopenia Code(s): D69.6 - THROMBOCYTOPENIA, UNSPECIFIED (3) Abnormal LFTs (liver function tests) Code(s): R94.5 - ABNORMAL RESULTS OF LIVER FUNCTION STUDIES
[2019-01-29] MEDS: IBUPROFEN 400 MG TABLET (FP) PO PRN (22:07)
[2019-01-29 22:24] VITALS: BMI 30.5
[2019-01-29] MEDS: DOXYCYCLINE INJECTION 100 MG in DEXTROSE 5%-WATER - 100 ML IVPB SCH (22:41)
[2019-01-29] MEDS ORDERED: ONDANSETRON 4 MG/2 ML VIAL IVPUSH PRN (23:28)
[2019-01-30] MEDS: LEVOTHYROXINE NA 88 MCG TABLET (FP) PO SCH (06:16)
--- NOTE | 2019-01-30 08:17 | PN ---
Progress Note (short form) - Note Progress Note: eating breakfast feels better this am Vital Signs Period Temp Pulse Resp BP Sys/Mariee Pulse Ox Last 24 Hr 98.0 F-102.3 F 77-100 18-19 85-138/45-84 95-100 cor-rrr lungs clear abd soft,nt ext no edema labs pending a/p fever thrombocytopenia dysuria abnl lfts diff diagnosis broad ?reaction to macrobid ?tick related illness, ?viral process rising lfts, high ldh- ?hemolysis- ?babesia, ?reaction to macrobid continue ivf rocephin/doxycycline blood smear r/o babesia lyme/anaplasm pcr, ehrlichia pcr all pending blood cultures urine culture ua may be negative from the macrobid hemolysis workup repeat labs pending will follow with you
[2019-01-30 08:38] LABS: HEMATOCRIT 29.6 % (32.4-45.2); HEMOGLOBIN 10.1 GM/dl (10.7-15.3); MCH 27.8 pg (25.7-33.7); MEAN CELL VOLUME 81.9 fl (80-96); MEAN PLT VOLUME 7.2 fl (7.5-11.1); PLATELET COUNT 53 K/MM3 (134-434); RBC 3.62 M/mm3 (3.60-5.2); RDW 15.5 % (11.6-15.6); WHITE BLOOD COUNT 4.3 K/mm3 (4.0-10.8)
[2019-01-30 08:51] LABS: INR 1.39 (0.82-1.09); PROTHROMBIN TIME (PATIENT) 15.5 SEC (10.2-13.0)
[2019-01-30 08:58] LABS: ALBUMIN 2.6 g/dl (3.4-5.0); BILIRUBIN,TOTAL 1.1 mg/dl (0.2-1); CALCIUM 7.9 mg/dl (8.5-10); CREATININE 0.6 mg/dl (0.55-1.3); MAGNESIUM 1.9 mg/dL (1.8-2.4); POTASSIUM 3.8 mmol/L (3.5-5.1); TOT PROT 6.1 g/dl (6.4-8.2)
[2019-01-30] MEDS: VALSARTAN 160 MG TABLET (UD) PO SCH ×2 (09:07→14:41)
[2019-01-30] MEDS: metoPROLOL SUCCINATE 25 MG TAB.SR.24H (FP) PO SCH (09:07)
--- NOTE | 2019-01-30 09:45 | CONS ---
INFECTIOUS DISEASE CONSULTATION DATE OF CONSULTATION: DATE OF DICTATION: 01/30/2019 HISTORY: This is a 73-year-old woman. She is a retired nurse. She lives at home in [place] in a private residence with her . Earlier this week she started having symptoms of chills. She felt her urine was very warm. She noted some low back discomfort and thought she had a UTI. She also developed some chills at the same time. Her thermometer was broken, so she did not take her temperature, and she noted that she had some headache. She was started on Macrobid on Friday evening, which she took 4 doses of. By evening, she was having fever as high as 102 accompanied by chills at home. She came on Friday morning for some outpatient labs. Was noted to have a low platelet count of 49,000 with abnormal LFTs and was advised ER evaluation. She presented to [facility] on Friday afternoon. At that point, she had fever to 102.8. She noted she had chills. She noted she still had some suprapubic discomfort. She had taken the last dose of Macrobid of which she reported taking 4 doses on morning. She denied any cough. She has had no appetite at home and has not been eating at all. She denies diarrhea. She denies any chest pain or abdominal pain. She does note she still has some suprapubic discomfort. She denies any rash. PAST MEDICAL HISTORY: Notable for hypertension. She is prediabetic, and she has had UTI in the past, E. coli that has been pansensitive. She has a history of hypothyroidism. ALLERGIES: Include AUGMENTIN, which is described as severe vomiting. She is allergic to ASPIRIN and to SULFA MEDICATIONS. MEDICATIONS: Her medications at home include Synthroid 88 mcg daily, metoprolol 25 mg daily, and Atacand 32 mg daily. SOCIAL HISTORY: She is . She is a retired nurse. She lives at home with her . There is no history of any alcohol or substance use. Her last trip was to [facility]. She returned in November. She denies any sick contacts. She takes care of 2 of her grandchildren on a daily basis. She does not garden, but she has a playset in the backyard, and she denies any history of any insect or tick bites. PHYSICAL EXAMINATION: General: She is awake and alert. She looks fatigued. Vital Signs: Her maximum temperature is 102.3, temperature is 98.1 when I saw her, blood pressure 100/50, pulse of 100, respiratory rate of 18, and saturating 95% on room air. HEENT: She is normocephalic. Her eyes are anicteric. She has no conjunctival hemorrhages. She has no thrush or pharyngitis. Neck: Supple. Lungs: Clear to auscultation. Heart: Regular rate and rhythm. Abdomen: Soft. She has some mild suprapubic discomfort. She has no CVA tenderness. Extremities: Without edema. Skin: She has no evidence of any skin rashes. No adenopathy. DIAGNOSTIC DATA: Labs are notable for a white count of 5.6, hemoglobin 11.1, platelets were 70,000, INR 1.4. Of note, her sodium was 135, total bilirubin 1.2, AST of 67, ALT of 66 with an LDH of 257. Urinalysis is negative. She had Babesia PCR, Lyme serology, Anaplasma, and Ehrlichia serologies sent. I spoke with the patient's family earlier. She had blood cultures and urine culture sent as well. Chest x-ray done in the emergency room is unremarkable. In summary, this is a 73-year-old woman admitted with fever, thrombocytopenia, dysuria, abnormal LFTs. Differential diagnosis is broad. Would include reaction to Macrobid, though it could just be tick-related illness, could just be a viral process. The urinalysis may indeed be negative, but she could still have UTI given the fact it could have been sterilized by the Macrobid. Concerns would be raised also for hemolysis and possibly Babesia given the rising LFTs and the high LDH. This could also be a Macrobid reaction of hemolysis. Of note, her symptoms seem to have started before starting the Macrobid, so it is difficult to assess whether this was all Macrobid related. I would continue IV fluids as her blood pressure is low off of her antihypertensives. She appears dehydrated and has had a poor appetite. I would treat her with ceftriaxone and doxycycline at this time. Blood smear to rule out Babesia. Lyme Anaplasma, Ehrlichia PCR are all pending as well as Babesia PCR. Blood cultures and urine cultures have been sent from the . Hemolysis workup has been ordered. Would repeat labs in the morning. Case was discussed at length with the patient's daughter. Patient's daughters were at the bedside. Further recommendations to follow. Davon ELLIOTT/[id number]
[2019-01-30] MEDS ORDERED: CEFTRIAXONE 1 G/50 ML PREMIX 50 ML IVPB SCH (10:00)
[2019-01-30] MEDS ORDERED: CANDESARTAN CILEXETIL 32 MG PO SCH (10:00)
[2019-01-30 10:07] LABS: PLATELET ESTIMATE DECREASED
--- NOTE | 2019-01-30 10:49 | PN ---
Physical Exam: SUBJECTIVE: Patient seen and examined, pt reports feeling better this morning, has appetite, ate breakfast, discussed with pt and her daughter, Dr. 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 HEAD: Normal with no signs of trauma. EYES: PERRL, extraocular movements intact, sclera anicteric, conjunctiva clear. No ptosis. ENT: Ears normal, nares patent, oropharynx clear without exudates, moist mucous membranes. NECK: Trachea midline, full range of motion, supple. LUNGS: Breath sounds equal, clear to auscultation bilaterally, no wheezes, no crackles, no accessory muscle use. HEART: Regular rate and rhythm, S1, S2 without murmur, rub or gallop. ABDOMEN: Soft, nontender, nondistended, normoactive bowel sounds, no guarding, no rebound, no hepatosplenomegaly, no masses. EXTREMITIES: 2+ pulses, warm, well-perfused, no edema. NEUROLOGICAL: Cranial nerves II through XII grossly intact. Normal speech, gait not observed. PSYCH: Normal mood, normal affect. SKIN: Warm, dry, normal turgor, no rashes or lesions noted Laboratory Results - last 24 hr 01/29/19 01/29/19 01/29/19 17:00 17:00 17:00 WBC RBC Hgb Hct MCV MCH MCHC RDW Plt Count MPV Absolute Neuts (auto) Neutrophils % Neutrophils % (Manual) Band Neutrophils % Lymphocytes % Lymphocytes % (Manual) Monocytes % (Manual) Eosinophils % (Manual) Myelocytes % (Man) Metamyelocytes Platelet Estimate Retic Count PT with INR INR PTT (Actin FS) Sodium Potassium Chloride Carbon Dioxide Anion Gap BUN Creatinine Est GFR (CKD-EPI)AfAm Est GFR (CKD-EPI)NonAf Random Glucose Lactic Acid 1.5 Calcium Magnesium Total Bilirubin Direct Bilirubin AST ALT Alkaline Phosphatase LD Total 257 H Creatine Kinase 41 CK-MB (CK-2) Troponin I Total Protein Albumin Total Amylase Lipase Urine Color Urine Appearance Urine pH Urine Protein Urine Glucose (UA) Urine Ketones Urine Blood Urine Nitrite Urine Bilirubin Urine Urobilinogen Ur Leukocyte Esterase Urine RBC Urine WBC 01/29/19 01/29/19 01/29/19 17:10 17:15 17:15 WBC RBC Hgb Hct MCV MCH MCHC RDW Plt Count MPV Absolute Neuts (auto) Neutrophils % Neutrophils % (Manual) Band Neutrophils % Lymphocytes % Lymphocytes % (Manual) Monocytes % (Manual) Eosinophils % (Manual) Myelocytes % (Man) Metamyelocytes Platelet Estimate Retic Count PT with INR INR PTT (Actin FS) 35.5 Sodium Potassium Chloride Carbon Dioxide Anion Gap BUN Creatinine Est GFR (CKD-EPI)AfAm Est GFR (CKD-EPI)NonAf Random Glucose Lactic Acid Calcium Magnesium Total Bilirubin Direct Bilirubin AST ALT Alkaline Phosphatase LD Total Creatine Kinase CK-MB (CK-2) Troponin I 0.01 Total Protein Albumin Total Amylase Lipase Urine Color Yellow Urine Appearance Clear Urine pH 5.5 Urine Protein Negative Urine Glucose (UA) Negative Urine Ketones Negative Urine Blood 1+ H Urine Nitrite Negative Urine Bilirubin Negative Urine Urobilinogen 0.2 Ur Leukocyte Esterase Negative Urine RBC 2-5 Urine WBC 0-2 01/29/19 01/29/19 01/29/19 17:15 17:15 17:15 WBC 5.6 RBC 4.06 Hgb 11.1 Hct 32.9 MCV 81.0 MCH 27.4 MCHC 33.8 RDW 14.9 Plt Count 70 L MPV 8.3 Absolute Neuts (auto) 2.6 Neutrophils % No Result Required. Neutrophils % (Manual) 46.0 Band Neutrophils % 4.0 Lymphocytes % No Result Required. Lymphocytes % (Manual) 24.0 Monocytes % (Manual) 20 H* Eosinophils % (Manual) 2.0 Myelocytes % (Man) 1 Metamyelocytes 1 Platelet Estimate Decreased Retic Count PT with INR 15.9 H INR 1.43 H PTT (Actin FS) Sodium 135 L Potassium 4.4 Chloride 107 Carbon Dioxide 24 Anion Gap 4 L BUN 12.0 Creatinine 0.6 Est GFR (CKD-EPI)AfAm 104.80 Est GFR (CKD-EPI)NonAf 90.42 Random Glucose 101 Lactic Acid Calcium 8.3 L Magnesium Total Bilirubin 1.2 H Direct Bilirubin AST 67 H ALT 66 H Alkaline Phosphatase 108 LD Total Creatine Kinase CK-MB (CK-2) 1.0 Troponin I Total Protein 7.0 Albumin 3.1 L Total Amylase Lipase Urine Color Urine Appearance Urine pH Urine Protein Urine Glucose (UA) Urine Ketones Urine Blood Urine Nitrite Urine Bilirubin Urine Urobilinogen Ur Leukocyte Esterase Urine RBC Urine WBC 01/30/19 01/30/19 01/30/19 06:00 08:00 08:00 WBC 4.3 RBC 3.62 Hgb 10.1 L Hct 29.6 L MCV 81.9 MCH 27.8 MCHC 34.0 RDW 15.5 Plt Count 53 L MPV 7.2 L Absolute Neuts (auto) 1.9 Neutrophils % No Result Required. Neutrophils % (Manual) 45.0 Band Neutrophils % Lymphocytes % No Result Required. Lymphocytes % (Manual) 37.0 Monocytes % (Manual) 10 Eosinophils % (Manual) 2.0 Myelocytes % (Man) Metamyelocytes Platelet Estimate Decreased Retic Count PT with INR 15.5 H INR 1.39 H PTT (Actin FS) Sodium 139 Potassium 3.8 Chloride 114 H Carbon Dioxide 21 Anion Gap 4 L BUN 9.0 Creatinine 0.6 Est GFR (CKD-EPI)AfAm 104.80 Est GFR (CKD-EPI)NonAf 90.42 Random Glucose 100 Lactic Acid Calcium 7.9 L Magnesium 1.9 Total Bilirubin 1.1 H Direct Bilirubin AST 64 H ALT 64 H Alkaline Phosphatase 100 LD Total 222 Creatine Kinase CK-MB (CK-2) Troponin I Total Protein 6.1 L Albumin 2.6 L Total Amylase 51 Lipase 223 Urine Color Urine Appearance Urine pH Urine Protein Urine Glucose (UA) Urine Ketones Urine Blood Urine Nitrite Urine Bilirubin Urine Urobilinogen Ur Leukocyte Esterase Urine RBC Urine WBC 01/30/19 01/30/19 08:00 08:00 WBC RBC Hgb Hct MCV MCH MCHC RDW Plt Count MPV Absolute Neuts (auto) Neutrophils % Neutrophils % (Manual) Band Neutrophils % Lymphocytes % Lymphocytes % (Manual) Monocytes % (Manual) Eosinophils % (Manual) Myelocytes % (Man) Metamyelocytes Platelet Estimate Retic Count 0.87 PT with INR INR PTT (Actin FS) Sodium Potassium Chloride Carbon Dioxide Anion Gap BUN Creatinine Est GFR (CKD-EPI)AfAm Est GFR (CKD-EPI)NonAf Random Glucose Lactic Acid Calcium Magnesium Total Bilirubin Direct Bilirubin 0.3 H AST ALT Alkaline Phosphatase LD Total Creatine Kinase CK-MB (CK-2) Troponin I Total Protein Albumin Total Amylase Lipase Urine Color Urine Appearance Urine pH Urine Protein Urine Glucose (UA) Urine Ketones Urine Blood Urine Nitrite Urine Bilirubin Urine Urobilinogen Ur Leukocyte Esterase Urine RBC Urine WBC Active Medications Generic Name Dose Route Start Last Admin Trade Name Ardenq PRN Reason Stop Dose Admin Sodium Chloride 1,000 mls @ 75 mls/hr 01/29/19 22:00 01/29/19 22:02 Normal Saline - IV 75 mls/hr ASDIR SUNI Administration Doxycycline Hyclate 100 mg/ 100 mls @ 50 mls/hr 01/29/19 22:00 01/29/19 22:41 Dextrose IVPB 50 mls/hr BID SUNI Administration Ceftriaxone Sodium 50 mls @ 100 mls/hr 01/30/19 10:00 01/30/19 09:14 Ceftriaxone 1 Gm-D5w Bag IVPB 100 mls/hr DAILY SUNI Administration Protocol Ibuprofen 400 mg 01/29/19 21:18 01/29/19 22:07 Motrin - PO 400 mg Q6H PRN Administration FEVER Levothyroxine Sodium 88 mcg 01/30/19 07:00 01/30/19 06:16 Synthroid - PO 88 mcg DAILY@0700 SUNI Administration Metoprolol Succinate 25 mg 01/30/19 10:00 01/30/19 09:07 Toprol Xl - PO 25 mg DAILY SUNI Administration Ondansetron HCl 4 mg 01/29/19 23:28 01/29/19 23:37 Zofran Injection IVPUSH 4 mg Q8H PRN Administration NAUSEA Valsartan 320 mg 01/30/19 10:00 Diovan - PO DAILY [facility] ASSESSMENT/PLAN: #Fever Assessment/Plan: afebrile after tylenol tylenol prn blood, urine cx pending tick borne serologies pending/blood smear pending hepatatis serologies pending c/w doxycycline and rocephine ID consultation appreciated Code(s): R50.9 - FEVER, UNSPECIFIED #Thrombocytopenia Assessment/Plan: trend plt daily avoid all agents that can add to thrombocytopenia Heme consult -Dr. Dobbins Code(s): D69.6 - THROMBOCYTOPENIA, UNSPECIFIED #Hypothyroidism Assessment/Plan: c/w synthroid Code(s): E03.9 - HYPOTHYROIDISM, UNSPECIFIED # HTN (hypertension) Assessment/Plan: c/w metoprolol with hold parameters Code(s): I10 - ESSENTIAL (PRIMARY) HYPERTENSION # PVD (peripheral vascular disease) Code(s): I73.9 - PERIPHERAL VASCULAR DISEASE, UNSPECIFIED #Vertigo Assessment/Plan: asymptomatic presently can give meclazine if returns Code(s): R42 - DIZZINESS AND GIDDINESS #Prophylactic measure Assessment/Plan: FEN fluid bolus given in ED monitor electrolytes regular diet DVT no chemical prohplaxys needed Dispo admit to med surg bed full code discharge planning Visit type - Emergency Visit Emergency Visit: Yes ED Registration Date: 01/29/19 Care time: The patient presented to the Emergency Department on the above date and was hospitalized for further evaluation of their emergent condition. - New Patient This patient is new to me today: Yes Date on this admission: 01/30/19 - Critical Care Critical Care patient: No
[2019-01-30] MEDS: DOXYCYCLINE INJECTION 100 MG in DEXTROSE 5%-WATER - 100 ML IVPB SCH ×2 (11:00→23:09)
[2019-01-30] MEDS ORDERED: AZITHROMYCIN IVPB 500 MG in DEXTROSE 5%-WATER - 250 ML IVPB SCH (13:30)
[2019-01-30] MEDS ORDERED: ACETAMINOPHEN 325 MG TABLET (FP) ONE (13:31)
[2019-01-30] MEDS ORDERED: AZITHROMYCIN 250 MG TABLET PO SCH (14:15)
[2019-01-30] MEDS: IBUPROFEN 400 MG TABLET (FP) PO PRN (14:40)
--- NOTE | 2019-01-30 15:41 | CONSULT ---
Consult Consult Specialty:: heme Reason for Consultation:: abnl cbc - History of Present Illness Chief Complaint: fever History of Present Illness: 73 yof adm w 4d uti sxs, given macrobid as outpt Found to have normocytic anemia, mod t-penia. Prior counts nl per data in this system Smear noted w babesia - History Source History Provided By: Patient, Medical Record - Past Medical History Cardio/Vascular: Yes: HTN Renal/: Yes: UTI (dx 4 days ago-prescribed macrobid) ...: No Endocrine: Yes: Hypothyroidism - Alcohol/Substance Use Hx Alcohol Use: No - Smoking History Smoking history: Never smoked Have you smoked in the past 12 months: No - Social History History of Recent Travel: Yes ([place] 2 months ago) Home Medications - Allergies Allergies/Adverse Reactions: Allergies Allergy/AdvReac Type Severity Reaction Status Date / Time amoxicillin trihydrate Allergy Vomiting Verified 01/29/19 16:35 [From Augmentin] aspirin Allergy Verified 01/29/19 16:35 potassium clavulanate Allergy Vomiting Verified 01/29/19 16:35 [From Augmentin] Sulfa (Sulfonamide Allergy Verified 01/29/19 16:35 Antibiotics) - Home Medications Home Medications: Ambulatory Orders Levothyroxine [Synthroid -] 88 mcg PO DAILY 08/23/13 Metoprolol Succinate [Toprol XL -] 25 mg PO DAILY #30 tab 02/14/17 Candesartan Cilexetil [Atacand] 32 mg PO DAILY 01/29/19 Physical Exam Vital Signs: Vital Signs Temperature 102.8 F H 01/30/19 14:00 Pulse Rate 103 H 01/30/19 14:00 Respiratory Rate 20 01/30/19 14:00 Blood Pressure 137/65 01/30/19 14:00 O2 Sat by Pulse Oximetry (%) 95 01/30/19 14:35 Constitutional: Yes: Well Nourished, No Distress Eyes: Yes: WNL, Conjunctiva Clear, Other (anicteric) Neck: Yes: Supple, Other (no LAj) Respiratory: Yes: CTA Bilaterally Gastrointestinal: Yes: Soft, Other (nt) Extremities: Yes: WNL Integumentary: Yes: WNL Labs: CBC, BMP 01/30/19 08:00 01/30/19 08:00 Assessment/Plan anemia, t-penia in context of recent uti sxs, babesia, ?other co-infxn Bloodwork does not support hemolysis P smear here -> suboptimal but dec plts/leukocytes noted monitor cbc antimicrobials per ID anticip resolution of t-penia/anemia as infxn clears
[2019-01-30] MEDS ORDERED: PT OWN MED DRAWER 7, Y5N ONE (19:44)
[2019-01-30] MEDS: SODIUM CHLORIDE 1,000 ML IV SCH (20:00)
[2019-01-30] MEDS: ATOVAQUONE 750 MG/5 ML (UNIT-DOSE PACKAGING) PO SCH (20:00)
[2019-01-30] MEDS ORDERED: ATOVAQUONE 750 MG/5 ML (UNIT-DOSE PACKAGING) PO SCH (22:00)
[2019-01-31] MEDS: LEVOTHYROXINE NA 88 MCG TABLET (FP) PO SCH (06:32)
[2019-01-31] MEDS: IBUPROFEN 400 MG TABLET (FP) PO PRN ×2 (08:23→20:15)
[2019-01-31 08:31] LABS: HEMOGLOBIN 9.5 GM/dL (10.7-15.3); LYMPH % 49.7 % (8-40); MCH 26.8 pg (25.7-33.7); MCHC 33.8 g/dl (32.0-36.0); MEAN CELL VOLUME 79.4 fl (80-96); MEAN PLT VOLUME 7.2 fl (7.5-11.1); MONO % 11.8 % (3.8-10.2); NEUT % 36.5 % (42.8-82.8); PLATELET COUNT 56 K/MM3 (134-434); RBC 3.53 M/mm3 (3.60-5.2); RDW 16.6 % (11.6-15.6)
[2019-01-31] MEDS: ATOVAQUONE 750 MG/5 ML (UNIT-DOSE PACKAGING) PO SCH ×2 (08:37→17:12)
[2019-01-31 08:45] LABS: ALBUMIN 2.5 g/dl (3.4-5.0); BLOOD UREA NITROGEN 10.1 mg/dL (7-18); CALCIUM 8.3 mg/dL (8.5-10.1); CREATININE 0.6 mg/dL (0.55-1.3); POTASSIUM 4.2 mmol/L (3.5-5.1); TOT PROT 6.4 g/dl (6.4-8.2)
[2019-01-31] MEDS ORDERED: PT OWN MED DRAWER 7, Y5N ONE ×4 (09:05→16:46)
--- NOTE | 2019-01-31 09:37 | PN ---
Progress Note, Physician Chief Complaint: pt seen and examined afebrile now,T max 100 pt tolerating feeds ID and hematology note appreciated Occasional chills present blood cul negative - Current Medication List Current Medications: Active Medications Atovaquone (Mepron -) 750 mg PO BIDWM [facility] Last Admin: 01/31/19 08:37 Dose: 750 mg Azithromycin (Zithromax -) 500 mg PO Q24H [facility] Last Admin: 01/30/19 14:41 Dose: 500 mg Sodium Chloride (Normal Saline -) 1,000 mls @ 75 mls/hr IV ASDIR [facility] Last Admin: 01/30/19 20:00 Dose: 75 mls/hr Doxycycline Hyclate 100 mg/ (Dextrose) 100 mls @ 50 mls/hr IVPB BID [facility] Last Admin: 01/30/19 23:09 Dose: 50 mls/hr Ibuprofen (Motrin -) 400 mg PO Q6H PRN PRN Reason: FEVER Last Admin: 01/31/19 08:23 Dose: 400 mg Levothyroxine Sodium (Synthroid -) 88 mcg PO DAILY@0700 [facility] Last Admin: 01/31/19 06:32 Dose: 88 mcg Metoprolol Succinate (Toprol Xl -) 25 mg PO DAILY [facility] Last Admin: 01/30/19 09:07 Dose: 25 mg Valsartan (Diovan -) 320 mg PO DAILY [facility] Last Admin: 01/30/19 14:41 Dose: Not Given - Objective Vital Signs: Vital Signs Temperature 100 F H 01/31/19 06:58 Pulse Rate 98 H 01/31/19 06:58 Respiratory Rate 18 01/31/19 06:58 Blood Pressure 124/67 01/31/19 06:58 O2 Sat by Pulse Oximetry (%) 98 01/30/19 21:00 Constitutional: Yes: No Distress Eyes: Yes: Conjunctiva Clear HENT: Yes: Atraumatic Neck: Yes: Supple, Trachea Midline Cardiovascular: Yes: Regular Rate and Rhythm Respiratory: Yes: Regular, CTA Bilaterally Gastrointestinal: Yes: Normal Bowel Sounds, Soft Musculoskeletal: Yes: WNL Extremities: Yes: WNL Edema: No Peripheral Pulses WNL: Yes Neurological: Yes: WNL, Alert, Oriented ...Motor Strength: WNL Psychiatric: Yes: WNL, Alert Labs: CBC, BMP 01/31/19 07:15 01/31/19 07:22 INR, PTT INR 1.39 (0.82-1.09) H 01/30/19 06:00 Laboratory Results - last 24 hr 01/29/19 01/30/19 01/30/19 17:00 08:00 08:00 WBC RBC Hgb Hct MCV MCH MCHC RDW Plt Count MPV Absolute Neuts (auto) Neutrophils % Neutrophils % (Manual) 45.0 Lymphocytes % Lymphocytes % (Manual) 37.0 Monocytes % Monocytes % (Manual) 10 Eosinophils % Eosinophils % (Manual) 2.0 Basophils % Nucleated RBC % Platelet Estimate Decreased Retic Count Haptoglobin 92 Sodium Potassium Chloride Carbon Dioxide Anion Gap BUN Creatinine Est GFR (CKD-EPI)AfAm Est GFR (CKD-EPI)NonAf Random Glucose Calcium Total Bilirubin AST ALT Alkaline Phosphatase LD Total Total Protein Albumin Lipase 223 01/30/19 01/31/19 01/31/19 08:00 07:15 07:22 WBC 5.0 RBC 3.53 L Hgb 9.5 L Hct 28.0 L MCV 79.4 L MCH 26.8 MCHC 33.8 RDW 16.6 H Plt Count 56 L MPV 7.2 L Absolute Neuts (auto) 1.8 Neutrophils % 36.5 L D Neutrophils % (Manual) Lymphocytes % 49.7 H D Lymphocytes % (Manual) Monocytes % 11.8 H D Monocytes % (Manual) Eosinophils % 1.0 Eosinophils % (Manual) Basophils % 1.0 Nucleated RBC % 0 Platelet Estimate Retic Count 0.87 Haptoglobin Sodium 141 Potassium 4.2 Chloride 113 H Carbon Dioxide 23 Anion Gap 5 L BUN 10.1 Creatinine 0.6 Est GFR (CKD-EPI)AfAm 104.80 Est GFR (CKD-EPI)NonAf 90.42 Random Glucose 108 H Calcium 8.3 L Total Bilirubin 1.0 AST 104 H ALT 106 H Alkaline Phosphatase 154 H LD Total 285 H Total Protein 6.4 Albumin 2.5 L Lipase Assessment/Plan fever,chills 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
--- NOTE | 2019-01-31 09:52 | PN ---
Progress Note (short form) - Note Progress Note: eating breakfast feels better this am headaches with fever Vital Signs Period Temp Pulse Resp BP Sys/Mariee Pulse Ox Last 24 Hr 98 F-100 F 80-98 16-18 99-125/51-70 95-100 cor-rrr lungs clear abd soft,nt ext no edema CBC, BMP 01/31/19 07:15 01/31/19 07:22 Microbiology 01/31/19 10:10 Blood - Peripheral Venous Blood Parasites Smear - Final Babesia Species 01/29/19 19:10 Urine - Urine Clean Catch Urine Culture - Final Normal Urogenital Jeni 01/29/19 17:15 Blood - Peripheral Venous Blood Culture - Preliminary NO GROWTH OBTAINED AFTER 24 HOURS, INCUBATION TO CONTINUE FOR 4 DAYS. 01/29/19 17:00 Blood - Peripheral Venous Blood Culture - Preliminary NO GROWTH OBTAINED AFTER 24 HOURS, INCUBATION TO CONTINUE FOR 4 DAYS. 01/30/19 11:05 Blood - Peripheral Venous Blood Parasites Smear - Final Babesia Species cultures negative a/p fever-probable babesia -parasitemia less then 1% thrombocytopenia dysuria abnl lfts continue ivf d/c rocephin continue doxycycline started zithromax and mepron yesterday, blood smear r/o babesia positive lyme/anaplasma pcr, ehrlichia pcr all pending hepatitis serology ordered for am as well hemolysis workup repeat labs in am will follow with you
[2019-01-31] MEDS: VALSARTAN 160 MG TABLET (UD) PO SCH (10:18)
[2019-01-31] MEDS: metoPROLOL SUCCINATE 25 MG TAB.SR.24H (FP) PO SCH (10:18)
--- NOTE | 2019-01-31 10:51 | EKG ---
Test Reason : Blood Pressure : / mmHG Vent. Rate : 093 BPM Atrial Rate : 093 BPM P-R Int : 154 ms QRS Dur : 078 ms QT Int : 366 ms P-R-T Axes : 036 -05 010 degrees QTc Int : 455 ms NORMAL SINUS RHYTHM NONSPECIFIC ST ABNORMALITY ABNORMAL ECG WHEN COMPARED WITH ECG OF 04-DEC-2018 09:21, NO SIGNIFICANT CHANGE WAS FOUND Confirmed by KEITH GONZALES MD ([id number]) on 01/31/2019 10:51:20 AM Referred By: MD WONG Confirmed By:KEITH GONZALES MD
[2019-01-31] MEDS: DOXYCYCLINE INJECTION 100 MG in DEXTROSE 5%-WATER - 100 ML IVPB SCH ×2 (11:43→22:38)
[2019-01-31 12:39] LABS: PLATELET ESTIMATE DECREASED
[2019-01-31 14:08] LABS: INR 1.33 (0.83-1.09); PROTHROMBIN TIME (PATIENT) 15.7 SEC (9.7-13.0)
[2019-01-31 14:11] LABS: ACTIVATED PTT 38.4 SECONDS (25.2-36.5)
[2019-01-31] MEDS: AZITHROMYCIN 250 MG TABLET PO SCH (14:35)
--- NOTE | 2019-01-31 23:41 | PN ---
Progress Note (short form) - Note Progress Note: Patient admitted with history of unexplained intermittent fevers, found to have thrombocytopenia, as well as prolonged PT. Peripheral smear revealed red cell inclusions suggestive of babesia - started on doxycyline. Consult Dr Carroll for yesterday reviewed - no evidence of hemolysis. No complaints at this time. Reports malaise/headache when febrile. Inpatient Meds reviewed. Current Medications Atovaquone (Mepron -) 750 mg PO BIDWM [facility] Last Admin: 01/31/19 17:12 Dose: 750 mg Azithromycin (Zithromax -) 500 mg PO Q24H [facility] Last Admin: 01/31/19 14:35 Dose: 500 mg Sodium Chloride (Normal Saline -) 1,000 mls @ 75 mls/hr IV ASDIR [facility] Last Admin: 01/30/19 20:00 Dose: 75 mls/hr Doxycycline Hyclate 100 mg/ (Dextrose) 100 mls @ 50 mls/hr IVPB BID [facility] Last Admin: 01/31/19 22:38 Dose: 50 mls/hr Ibuprofen (Motrin -) 400 mg PO Q6H PRN PRN Reason: FEVER Last Admin: 01/31/19 20:15 Dose: 400 mg Levothyroxine Sodium (Synthroid -) 88 mcg PO DAILY@0700 [facility] Last Admin: 01/31/19 06:32 Dose: 88 mcg Metoprolol Succinate (Toprol Xl -) 25 mg PO DAILY [facility] Last Admin: 01/31/19 10:18 Dose: 25 mg Valsartan (Diovan -) 320 mg PO DAILY [facility] Last Admin: 01/31/19 10:18 Dose: 320 mg On Examination: Last Vital Signs Temp Pulse Resp BP Pulse Ox 97.8 F 78 18 110/60 93 L 01/31/19 19:00 01/31/19 19:00 01/31/19 19:00 01/31/19 19:00 01/31/19 09:00 General: In no acute distress, lying comfortably in bed. Extremities: No pallor or icterus. No pedal edema. No palpable lymphadenopathy. CVS: S1, S2, regular, no gallop or murmur. Chest: good air entry bilaterally, clear Abdomen: Non-distended, non-tender, no palpable organomegaly. Neuro: Alert, oriented, non-focal. Labs: CBC, BMP 01/31/19 07:15 01/31/19 07:22 Today's peripheral smear reviewed; multiple high power hirsch reviewed - inclusions noted on 2 red cells. No platelet clumping noted. Assessment. Fever/thrombocytopenia - with peripheral smear suggestive of babesiosis. Very low level parasitemia (<1%), with no evidnce of significant hemolysis. On appropriate treatemnt - with ID guidance. Mildly prolonged PT of concern - possibly related to liver injury - low albumin / mild transaminitis. DIC unlikely - normal fibrinogen. Observe. Will continue to follow.
[2019-02-01] MEDS: SODIUM CHLORIDE 1,000 ML IV SCH ×2 (05:00→22:57)
[2019-02-01] MEDS: LEVOTHYROXINE NA 88 MCG TABLET (FP) PO SCH (06:23)
[2019-02-01 07:40] LABS: ALBUMIN 2.2 g/dl (3.4-5.0); BILIRUBIN,TOTAL 0.7 mg/dL (0.2-1); BLOOD UREA NITROGEN 10.9 mg/dL (7-18); CALCIUM 8.3 mg/dL (8.5-10.1); CREATININE 0.6 mg/dL (0.55-1.3); POTASSIUM 4.1 mmol/L (3.5-5.1)
[2019-02-01 07:50] LABS: BASO % 0.9 % (0-2.0); EOS % 2.1 % (0-4.5); HEMATOCRIT 25.4 % (32.4-45.2); HEMOGLOBIN 8.6 GM/dL (10.7-15.3); MCH 26.8 pg (25.7-33.7); MCHC 33.9 g/dl (32.0-36.0); MEAN CELL VOLUME 79.3 fl (80-96); MEAN PLT VOLUME 7.1 fl (7.5-11.1); MONO % 14.5 % (3.8-10.2); NEUT % 31.5 % (42.8-82.8); PLATELET COUNT 63 K/MM3 (134-434); RBC 3.21 M/mm3 (3.60-5.2); RDW 16.7 % (11.6-15.6); WHITE BLOOD COUNT 4.3 K/mm3 (4.0-10.0)
[2019-02-01] MEDS ORDERED: PT OWN MED DRAWER 7, Y5N ONE ×3 (07:58→17:03)
[2019-02-01] MEDS: ATOVAQUONE 750 MG/5 ML (UNIT-DOSE PACKAGING) PO SCH ×2 (08:00→17:09)
[2019-02-01] MEDS: IBUPROFEN 400 MG TABLET (FP) PO PRN ×2 (09:02→19:06)
[2019-02-01] MEDS: VALSARTAN 160 MG TABLET (UD) PO SCH (09:03)
[2019-02-01] MEDS: metoPROLOL SUCCINATE 25 MG TAB.SR.24H (FP) PO SCH (09:03)
[2019-02-01] MEDS: DOXYCYCLINE INJECTION 100 MG in DEXTROSE 5%-WATER - 100 ML IVPB SCH ×2 (10:17→22:57)
--- NOTE | 2019-02-01 10:17 | PN ---
Progress Note, Physician Chief Complaint: pt seen and examined,feel;s better afebrile now,T max 98 pt tolerating feeds ID and hematology note appreciated tolertaing feeds blood cul negatiive Labs noted - Current Medication List Current Medications: Active Medications Atovaquone (Mepron -) 750 mg PO BIDWM [facility] Last Admin: 02/01/19 08:00 Dose: 750 mg Azithromycin (Zithromax -) 500 mg PO Q24H [facility] Last Admin: 01/31/19 14:35 Dose: 500 mg Sodium Chloride (Normal Saline -) 1,000 mls @ 75 mls/hr IV ASDIR [facility] Last Admin: 02/01/19 05:00 Dose: 75 mls/hr Doxycycline Hyclate 100 mg/ (Dextrose) 100 mls @ 50 mls/hr IVPB BID [facility] Last Admin: 01/31/19 22:38 Dose: 50 mls/hr Ibuprofen (Motrin -) 400 mg PO Q6H PRN PRN Reason: FEVER Last Admin: 02/01/19 09:02 Dose: 400 mg Levothyroxine Sodium (Synthroid -) 88 mcg PO DAILY@0700 [facility] Last Admin: 02/01/19 06:23 Dose: 88 mcg Metoprolol Succinate (Toprol Xl -) 25 mg PO DAILY [facility] Last Admin: 02/01/19 09:03 Dose: 25 mg Valsartan (Diovan -) 320 mg PO DAILY [facility] Last Admin: 02/01/19 09:03 Dose: 320 mg - Objective Vital Signs: Vital Signs Temperature 98.1 F 02/01/19 06:00 Pulse Rate 81 02/01/19 06:00 Respiratory Rate 18 02/01/19 06:00 Blood Pressure 109/58 L 02/01/19 06:00 O2 Sat by Pulse Oximetry (%) 96 01/31/19 21:00 Constitutional: Yes: No Distress Eyes: Yes: Conjunctiva Clear HENT: Yes: Atraumatic Neck: Yes: Supple Cardiovascular: Yes: Regular Rate and Rhythm Respiratory: Yes: Regular, CTA Bilaterally Gastrointestinal: Yes: Normal Bowel Sounds, Soft Musculoskeletal: Yes: WNL Extremities: Yes: WNL Edema: No Peripheral Pulses WNL: Yes Neurological: Yes: WNL, Alert, Oriented ...Motor Strength: WNL Psychiatric: Yes: WNL, Alert Labs: CBC, BMP 02/01/19 06:00 02/01/19 06:00 INR, PTT INR 1.33 (0.83-1.09) H 01/31/19 13:40 Fibrinogen 487.0 mg/dL (238-498) 01/31/19 13:40 Laboratory Results - last 24 hr 01/31/19 01/31/19 01/31/19 07:15 13:40 13:40 WBC RBC Hgb Hct MCV MCH MCHC RDW Plt Count MPV Absolute Neuts (auto) Neutrophils % Neutrophils % (Manual) 38.2 L Band Neutrophils % 3.1 Lymphocytes % Lymphocytes % (Manual) 34.0 Monocytes % Monocytes % (Manual) 11 H Eosinophils % Eosinophils % (Manual) 2.1 Basophils % Basophils % (Manual) 0.0 Myelocytes % (Man) 1 Promyelocytes % (Man) 0 Blast Cells % (Manual) 0 Nucleated RBC % Metamyelocytes 0 Platelet Estimate Decreased Polychromasia 0 Poikilocytosis 0 PT with INR 15.70 H INR 1.33 H PTT (Actin FS) 38.4 H Fibrinogen 487.0 Sodium Potassium Chloride Carbon Dioxide Anion Gap BUN Creatinine Est GFR (CKD-EPI)AfAm Est GFR (CKD-EPI)NonAf Random Glucose Calcium Total Bilirubin AST ALT Alkaline Phosphatase LD Total Total Protein Albumin 02/01/19 02/01/19 06:00 06:00 WBC 4.3 RBC 3.21 L Hgb 8.6 L Hct 25.4 L MCV 79.3 L MCH 26.8 MCHC 33.9 RDW 16.7 H Plt Count 63 L MPV 7.1 L Absolute Neuts (auto) 1.3 L Neutrophils % 31.5 L Neutrophils % (Manual) Band Neutrophils % Lymphocytes % 51.0 H Lymphocytes % (Manual) Monocytes % 14.5 H Monocytes % (Manual) Eosinophils % 2.1 D Eosinophils % (Manual) Basophils % 0.9 Basophils % (Manual) Myelocytes % (Man) Promyelocytes % (Man) Blast Cells % (Manual) Nucleated RBC % 0 Metamyelocytes Platelet Estimate Polychromasia Poikilocytosis PT with INR INR PTT (Actin FS) Fibrinogen Sodium 144 Potassium 4.1 Chloride 116 H Carbon Dioxide 23 Anion Gap 5 L BUN 10.9 Creatinine 0.6 Est GFR (CKD-EPI)AfAm 104.80 Est GFR (CKD-EPI)NonAf 90.42 Random Glucose 92 Calcium 8.3 L Total Bilirubin 0.7 AST 129 H ALT 128 H Alkaline Phosphatase 162 H LD Total 275 H Total Protein 6.0 L Albumin 2.2 L Assessment/Plan 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
--- NOTE | 2019-02-01 10:22 | PN ---
Progress Note (short form) - Note Progress Note: eating breakfast still with headache feels weak no abdominal pain eating now no fevers Vital Signs Period Temp Pulse Resp BP Sys/Mariee Pulse Ox Last 24 Hr 98 F-100 F 80-98 16-18 99-125/51-70 95-100 cor-rrr lungs clear abd soft,nt ext no edema CBC, BMP 01/31/19 07:15 01/31/19 07:22 Microbiology 01/31/19 10:10 Blood - Peripheral Venous Blood Parasites Smear - Final Babesia Species 01/29/19 19:10 Urine - Urine Clean Catch Urine Culture - Final Normal Urogenital Jeni 01/29/19 17:15 Blood - Peripheral Venous Blood Culture - Preliminary NO GROWTH OBTAINED AFTER 24 HOURS, INCUBATION TO CONTINUE FOR 4 DAYS. 01/29/19 17:00 Blood - Peripheral Venous Blood Culture - Preliminary NO GROWTH OBTAINED AFTER 24 HOURS, INCUBATION TO CONTINUE FOR 4 DAYS. 01/30/19 11:05 Blood - Peripheral Venous Blood Parasites Smear - Final Babesia Species Laboratory Tests 01/29/19 01/31/19 02/01/19 17:15 07:22 06:00 Lymphocytes % No Result Required. AST 104 H 129 H ALT 106 H 128 H Alkaline Phosphatase 154 H 162 H LD Total 285 H 275 H cultures negative +babesia smear a/p fever-probable babesia -parasitemia less then 1% thrombocytopenia dysuria abnl lfts continue ivf continue doxycycline day #3 for probable tick related illness (anaplasma, ehrlichia pcr pending) zithromax/mepron day #2 blood smear +- parasitemia lower lyme/anaplasma pcr, ehrlichia pcr all pending hepatitis serology pending will check sonogram of liver d/w Dr Espinosa
[2019-02-01 10:34] LABS: ANISOCYTOSIS 0; MACROCYTOSIS 0; PLATELET ESTIMATE DECREASED
[2019-02-01] MEDS: AZITHROMYCIN 250 MG TABLET PO SCH (13:55)
--- NOTE | 2019-02-01 19:57 | PN ---
Progress Note (short form) - Note Progress Note: Patient seen and examined Complains of some headache and some back pains Temp to 99.9 Had some chills Eating some Last Vital Signs Temp Pulse Resp BP Pulse Ox 97.9 F 82 20 117/75 96 02/01/19 10:00 02/01/19 10:00 02/01/19 10:00 02/01/19 10:00 01/31/19 21:00 Cor: RSR, No murmurs, No gallops Lungs: Clear to P&A Abd: Soft, Normal bowel sounds, No organomegaly Ext:No significant edema CBC, BMP 02/01/19 06:00 02/01/19 06:00 Current Medications Generic Name Dose Route Start Last Admin Trade Name Freq PRN Reason Stop Dose Admin Atovaquone 750 mg 01/30/19 17:20 02/01/19 17:09 Mepron - PO 750 mg BIDWM SUNI Administration Azithromycin 500 mg 01/31/19 14:30 02/01/19 13:55 Zithromax - PO 500 mg Q24H SUNI Administration Sodium Chloride 1,000 mls @ 75 mls/hr 01/29/19 22:00 02/01/19 05:00 Normal Saline - IV 75 mls/hr ASDIR SUNI Administration Doxycycline Hyclate 100 mg/ 100 mls @ 50 mls/hr 01/29/19 22:00 02/01/19 10:17 Dextrose IVPB 50 mls/hr BID SUNI Administration Ibuprofen 400 mg 01/29/19 21:18 02/01/19 19:06 Motrin - PO 400 mg Q6H PRN Administration FEVER Levothyroxine Sodium 88 mcg 01/30/19 07:00 02/01/19 06:23 Synthroid - PO 88 mcg DAILY@0700 SUNI Administration Metoprolol Succinate 25 mg 01/30/19 10:00 02/01/19 09:03 Toprol Xl - PO 25 mg DAILY SUNI Administration Impression: Babesia No evidence of hemolysis Fall in Hb/Hct ? dilutional Thrombocytopenia- stable Abnormal LFT's - worsening in face of falling parasite count and therapy ?? 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 Continued monitoring of coags, LFT's, CBC etc. Therapy per ID.
--- NOTE | 2019-02-01 20:34 | CON.GI ---
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 She denies dysuria, diarrhea or vomiting but needs she may have a UTI and took a short course of Macrobid. When she failed to improve she came to the ER and is found to have positive serology for babesiosis. Her transaminases were elevated on admission and have been rising while the bilirubin is declining. INR has been elevated. She has progressive anemia, thrombycytopenia and relative leukopenia with low retic and LDH. She has been getting Motrin for her muscles aches. She has been transfused prior to her hysterectomy and got her hepatitis vaccinations. She recall having had jaundice as a child. No alcohol usage. She had a normal colonoscopy with Dr Bolivar in 09/14. Had jejunal inflammation by CT and enterography in 2013 with normal enteroscopy by Dr Bolivar. - History Source History Provided By: Patient Limitations to Obtaining History: No Limitations - Past Medical History Cardio/Vascular: Yes: HTN, Hyperlipdemia, Other (had normal cardiac cath with Dr Marshall) Gastrointestinal: Yes: Diverticulosis (sigmoid by enterography), Hiatal Hernia ( EGD/enteroscopy on 08/23/[address] Bolivar revealed a small HH), Other (Normal colonoscopy in [address] Bolivar. Small bowel inflammation [address] ) Renal/: Yes: UTI (dx 4 days ago-prescribed macrobid) Reproductive: Yes: Fibroids (with bleeding led to TAHBSO) ...: No Endocrine: Yes: Hypothyroidism Additional Medical History: cataracts - Past Surgical History Past Surgical History: Yes: Colonoscopy, Hysterectomy (TAHBSO for bleeding fibroids), Upper Endoscopy - Alcohol/Substance Use Hx Alcohol Use: No History of Substance Use: reports: None - Smoking History Smoking history: Never smoked Have you smoked in the past 12 months: No - Social History Usual Living Arrangement: With Spouse ADL: Independent Occupation: retired RN Place of : Other ([place]) History of Recent Travel: Yes ([place] 2 months ago) Home Medications - Allergies Allergies/Adverse Reactions: Allergies Allergy/AdvReac Type Severity Reaction Status Date / Time amoxicillin trihydrate Allergy Vomiting Verified 01/29/19 16:35 [From Augmentin] aspirin Allergy Verified 01/29/19 16:35 potassium clavulanate Allergy Vomiting Verified 01/29/19 16:35 [From Augmentin] Sulfa (Sulfonamide Allergy Verified 01/29/19 16:35 Antibiotics) - Home Medications Home Medications: Ambulatory Orders Levothyroxine [Synthroid -] 88 mcg PO DAILY 08/23/13 Metoprolol Succinate [Toprol XL -] 25 mg PO DAILY #30 tab 02/14/17 Candesartan Cilexetil [Atacand] 32 mg PO DAILY 01/29/19 Family Disease History - Family Disease History Family Disease History: CA: Daughter (breast cancer), Respiratory: Father ( 78 COPD), Other: Mother (lived into her 90s) Review of Systems - Review of Systems Constitutional: reports: Chills, Lethargy, Malaise, Weakness Eyes: reports: No Symptoms Neck: reports: No Symptoms Cardiovascular: reports: No Symptoms Respiratory: reports: No Symptoms Gastrointestinal: reports: No Symptoms Genitourinary: reports: No Symptoms Musculoskeletal: reports: Back Pain, Muscle Pain Integumentary: reports: No Symptoms Neurological: reports: Headache Physical Exam-GI Vital Signs: Vital Signs Temperature 99.6 F 02/01/19 18:00 Pulse Rate 92 H 02/01/19 18:00 Respiratory Rate 20 02/01/19 18:00 Blood Pressure 124/66 02/01/19 18:00 O2 Sat by Pulse Oximetry (%) 96 01/31/19 21:00 CBC,CMP WBC 4.3 K/mm3 (4.0-10.0) 02/01/19 06:00 RBC 3.21 M/mm3 (3.60-5.2) L 02/01/19 06:00 Hgb 8.6 GM/dL (10.7-15.3) L 02/01/19 06:00 Hct 25.4 % (32.4-45.2) L 02/01/19 06:00 MCV 79.3 fl (80-96) L 02/01/19 06:00 MCH 26.8 pg (25.7-33.7) 02/01/19 06:00 MCHC 33.9 g/dl (32.0-36.0) 02/01/19 06:00 RDW 16.7 % (11.6-15.6) H 02/01/19 06:00 Plt Count 63 K/MM3 (134-434) L 02/01/19 06:00 MPV 7.1 fl (7.5-11.1) L 02/01/19 06:00 Absolute Neuts (auto) 1.3 K/mm3 (1.5-8.0) L 02/01/19 06:00 Neutrophils % 31.5 % (42.8-82.8) L 02/01/19 06:00 Neutrophils % (Manual) 36.2 % (42.8-82.8) L 02/01/19 06:00 Band Neutrophils % 2.1 % 02/01/19 06:00 Lymphocytes % 51.0 % (8-40) H 02/01/19 06:00 Lymphocytes % (Manual) 35.1 % (8-40) 02/01/19 06:00 Monocytes % 14.5 % (3.8-10.2) H 02/01/19 06:00 Monocytes % (Manual) 13 % (3.8-10.2) H 02/01/19 06:00 Eosinophils % 2.1 % (0-4.5) D 02/01/19 06:00 Eosinophils % (Manual) 2.1 % (0-4.5) 02/01/19 06:00 Basophils % 0.9 % (0-2.0) 02/01/19 06:00 Basophils % (Manual) 1.1 % (0-2.0) D 02/01/19 06:00 Myelocytes % (Man) 0 % (0-2) D 02/01/19 06:00 Promyelocytes % (Man) 0 % (0-2) 02/01/19 06:00 Blast Cells % (Manual) 0 % (0-0) 02/01/19 06:00 Nucleated RBC % 0 % (0-0) 02/01/19 06:00 Metamyelocytes 0 % (0-2) 02/01/19 06:00 Hypochromia 0 02/01/19 06:00 Platelet Estimate Decreased 02/01/19 06:00 Polychromasia 0 02/01/19 06:00 Poikilocytosis 0 02/01/19 06:00 Anisocytosis 0 02/01/19 06:00 Microcytosis 1+ 02/01/19 06:00 Macrocytosis 0 02/01/19 06:00 Retic Count 0.87 % (0.5-1.5) 01/30/19 08:00 Haptoglobin 92 mg/dL (34-200) 01/29/19 17:00 Sodium 144 mmol/L (136-145) 02/01/19 06:00 Potassium 4.1 mmol/L (3.5-5.1) 02/01/19 06:00 Chloride 116 mmol/L (98-107) H 02/01/19 06:00 Carbon Dioxide 23 mmol/L (21-32) 02/01/19 06:00 Anion Gap 5 MMOL/L (8-16) L 02/01/19 06:00 BUN 10.9 mg/dL (7-18) 02/01/19 06:00 Creatinine 0.6 mg/dL (0.55-1.3) 02/01/19 06:00 Est GFR (CKD-EPI)AfAm 104.80 02/01/19 06:00 Est GFR (CKD-EPI)NonAf 90.42 02/01/19 06:00 Random Glucose 92 mg/dL (74-106) 02/01/19 06:00 Lactic Acid 1.5 mmol/L (0.4-2.0) 01/29/19 17:00 Calcium 8.3 mg/dL (8.5-10.1) L 02/01/19 06:00 Magnesium 1.9 mg/dL (1.8-2.4) 01/30/19 08:00 Total Bilirubin 0.7 mg/dL (0.2-1) 02/01/19 06:00 Direct Bilirubin 0.3 mg/dL (0.0-0.2) H 01/30/19 08:00 AST 129 U/L (15-37) H 02/01/19 06:00 ALT 128 U/L (13-61) H 02/01/19 06:00 Alkaline Phosphatase 162 U/L (45-117) H 02/01/19 06:00 LD Total 275 U/L (84-246) H 02/01/19 06:00 Creatine Kinase 41 U/L (26-192) 01/29/19 17:00 CK-MB (CK-2) 1.0 ng/mL (0.5-3.6) 01/29/19 17:15 Troponin I 0.01 ng/ml (0.00-0.05) 01/29/19 17:15 Total Protein 6.0 g/dl (6.4-8.2) L 02/01/19 06:00 Albumin 2.2 g/dl (3.4-5.0) L 02/01/19 06:00 Total Amylase 51 U/L (25-115) 01/30/19 08:00 Lipase 223 U/L (73-393) 01/30/19 08:00 Current Medications Generic Name Dose Route Start Last Admin Trade Name Freq PRN Reason Stop Dose Admin Atovaquone 750 mg 01/30/19 17:20 02/01/19 17:09 Mepron - PO 750 mg BIDWM SUNI Administration Azithromycin 500 mg 01/31/19 14:30 02/01/19 13:55 Zithromax - PO 500 mg Q24H SUNI Administration Sodium Chloride 1,000 mls @ 75 mls/hr 01/29/19 22:00 02/01/19 05:00 Normal Saline - IV 75 mls/hr ASDIR SUNI Administration Doxycycline Hyclate 100 mg/ 100 mls @ 50 mls/hr 01/29/19 22:00 02/01/19 10:17 Dextrose IVPB 50 mls/hr BID SUNI Administration Ibuprofen 400 mg 01/29/19 21:18 02/01/19 19:06 Motrin - PO 400 mg Q6H PRN Administration FEVER Levothyroxine Sodium 88 mcg 01/30/19 07:00 02/01/19 06:23 Synthroid - PO 88 mcg DAILY@0700 SUNI Administration Metoprolol Succinate 25 mg 01/30/19 10:00 02/01/19 09:03 Toprol Xl - PO 25 mg DAILY SUNI Administration Constitutional: Yes: No Distress Eyes: Yes: Conjunctiva Clear HENT: Yes: Normocephalic Neck: Yes: Supple, Trachea Midline Cardiovascular: Yes: Regular Rate and Rhythm Respiratory: Yes: CTA Bilaterally Gastrointestinal Inspection: Yes: Scars (healed [place]) ...Auscultate: Yes: Normoactive Bowel Sounds ...Palpate: Yes: Soft, Other (nontender) ...Rectal Exam: Yes: Deferred (patient declined) Extremities: Yes: WNL, Other (no purpura) Edema: No Neurological: Yes: Alert, Oriented Labs: CBC, BMP 02/01/19 06:00 02/01/19 06:00 INR, PTT INR 1.33 (0.83-1.09) H 01/31/19 13:40 Fibrinogen 487.0 mg/dL (238-498) 01/31/19 13:40 Laboratory Tests 01/29/19 01/29/19 01/30/19 17:15 17:15 08:00 PT with INR 15.9 H INR 1.43 H Total Bilirubin 1.2 H 1.1 H Direct Bilirubin AST 67 H 64 H ALT 66 H 64 H Alkaline Phosphatase 100 LD Total 222 Lipase 223 01/30/19 01/31/19 02/01/19 08:00 07:22 06:00 PT with INR INR Total Bilirubin 1.0 0.7 Direct Bilirubin 0.3 H AST 104 H 129 H ALT 106 H 128 H Alkaline Phosphatase 154 H 162 H LD Total Lipase Laboratory Tests 01/29/19 01/29/19 01/29/19 17:00 17:00 17:15 WBC 5.6 Hgb 11.1 Plt Count 70 L Retic Count Haptoglobin 92 Lactic Acid 1.5 01/30/19 01/31/19 02/01/19 08:00 07:15 06:00 WBC 4.3 Hgb 8.6 L Plt Count 56 L 63 L Retic Count 0.87 Haptoglobin Lactic Acid Problem List - Problems (1) Abnormal LFTs (liver function tests) Assessment/Plan: Not clear whether this is a reactive hepatopathy to an infection or a DILI ( drug induced liver injury) given that the abnormalities existed on admission. This raises Macrobid as the possible agent but Motrin may be contributing so have asked to use acetaminophen to control her fevers and to minimize it's usage for muscle aches. Await liver serologies but transaminases are rising and so far too low for a viral agent. I will give Vitamin K Code(s): R94.5 - ABNORMAL RESULTS OF LIVER FUNCTION STUDIES (2) Myalgia Code(s): M79.10 - MYALGIA, UNSPECIFIED SITE (3) Fever Code(s): R50.9 - FEVER, UNSPECIFIED (4) HTN (hypertension) Code(s): I10 - ESSENTIAL (PRIMARY) HYPERTENSION (5) Headache Code(s): R51 - HEADACHE (6) Hypothyroidism Code(s): E03.9 - HYPOTHYROIDISM, UNSPECIFIED (7) Thrombocytopenia Code(s): D69.6 - THROMBOCYTOPENIA, UNSPECIFIED Assessment/Plan Assessment: - Not clear whether this is a reactive hepatopathy to an infection or a DILI ( drug induced liver injury) given that the abnormalities existed on admission. This raises Macrobid as the possible agent but Motrin may be contributing so have asked to use acetaminophen to control her fevers and to minimize it's usage for muscle aches. It will be difficult to sort out the effects of additional antibiotics. Await liver serologies but transaminases are rising and so far too low for a viral agent. Plan: -- Stool for occult blood -- Follow LFTs -- Await sonogram to exclude an abscess -- I will give Vitamin K -- PPI to prevent a stress gastritis bleed
[2019-02-01] MEDS ORDERED: ACETAMINOPHEN 325 MG TABLET (FP) PO PRN (20:56)
[2019-02-01] MEDS ORDERED: PHYTONADIONE 10 MG/1 ML AMP IVPB ONE (21:10)
[2019-02-01] MEDS: PANTOPRAZOLE 40 MG TABLET (FP) PO SCH (22:09)
[2019-02-02] MEDS: LEVOTHYROXINE NA 88 MCG TABLET (FP) PO SCH (06:09)
[2019-02-02 07:59] LABS: BASO % 1.2 % (0-2.0); EOS % 1.6 % (0-4.5); HEMOGLOBIN 8.5 GM/dL (10.7-15.3); LYMPH % 56.4 % (8-40); MCH 26.9 pg (25.7-33.7); MCHC 34.2 g/dl (32.0-36.0); MEAN CELL VOLUME 78.8 fl (80-96); MEAN PLT VOLUME 7.1 fl (7.5-11.1); MONO % 12.9 % (3.8-10.2); NEUT % 27.9 % (42.8-82.8); PLATELET COUNT 79 K/MM3 (134-434); RBC 3.17 M/mm3 (3.60-5.2); RDW 17.4 % (11.6-15.6); WHITE BLOOD COUNT 4.5 K/mm3 (4.0-10.0)
[2019-02-02 08:31] LABS: ALBUMIN 2.2 g/dl (3.4-5.0); BILIRUBIN,DIRECT 0.2 mg/dL (0.0-0.2); BILIRUBIN,TOTAL 0.6 mg/dL (0.2-1)
[2019-02-02] MEDS ORDERED: PT OWN MED DRAWER 7, Y5N ONE ×3 (08:40→20:51)
[2019-02-02] MEDS: PANTOPRAZOLE 40 MG TABLET (FP) PO SCH ×2 (09:12→21:53)
[2019-02-02] MEDS: metoPROLOL SUCCINATE 25 MG TAB.SR.24H (FP) PO SCH (09:12)
[2019-02-02] MEDS: ATOVAQUONE 750 MG/5 ML (UNIT-DOSE PACKAGING) PO SCH ×2 (09:12→17:36)
[2019-02-02 09:33] LABS: ALBUMIN 2.2 g/dl (3.4-5.0); BILIRUBIN,TOTAL 0.8 mg/dL (0.2-1); BLOOD UREA NITROGEN 10.1 mg/dL (7-18); CALCIUM 8.7 mg/dL (8.5-10.1); CREATININE 0.6 mg/dL (0.55-1.3); POTASSIUM 4.2 mmol/L (3.5-5.1); TOT PROT 5.9 g/dl (6.4-8.2)
--- NOTE | 2019-02-02 09:57 | PN ---
Progress Note, Physician Chief Complaint: pt seen and examined,feel;s better afebrile now,T max 99 pt tolerating feeds ID and hematology ,GI note appreciated tolertaing feeds blood cul negatiive Labs noted LFT increasing - Current Medication List Current Medications: Active Medications Acetaminophen (Tylenol -) 650 mg PO Q4H PRN PRN Reason: FEVER Atovaquone (Mepron -) 750 mg PO BIDWM [facility] Last Admin: 02/02/19 09:12 Dose: 750 mg Azithromycin (Zithromax -) 500 mg PO Q24H [facility] Last Admin: 02/01/19 13:55 Dose: 500 mg Sodium Chloride (Normal Saline -) 1,000 mls @ 75 mls/hr IV ASDIR [facility] Last Admin: 02/01/19 22:57 Dose: 75 mls/hr Doxycycline Hyclate 100 mg/ (Dextrose) 100 mls @ 50 mls/hr IVPB BID [facility] Last Admin: 02/01/19 22:57 Dose: 50 mls/hr Levothyroxine Sodium (Synthroid -) 88 mcg PO DAILY@0700 [facility] Last Admin: 02/02/19 06:09 Dose: 88 mcg Metoprolol Succinate (Toprol Xl -) 25 mg PO DAILY [facility] Last Admin: 02/02/19 09:12 Dose: 25 mg Pantoprazole Sodium (Protonix -) 40 mg PO BID [facility] Last Admin: 02/02/19 09:12 Dose: 40 mg - Objective Vital Signs: Vital Signs Temperature 99.6 F 02/02/19 02:00 Pulse Rate 91 H 02/02/19 02:00 Respiratory Rate 18 02/02/19 02:00 Blood Pressure 113/43 L 02/02/19 02:00 O2 Sat by Pulse Oximetry (%) 96 01/31/19 21:00 Constitutional: Yes: No Distress Eyes: Yes: Conjunctiva Clear HENT: Yes: Atraumatic Neck: Yes: Supple, Trachea Midline Cardiovascular: Yes: Regular Rate and Rhythm Respiratory: Yes: Regular Gastrointestinal: Yes: Normal Bowel Sounds, Soft Musculoskeletal: Yes: WNL Extremities: Yes: WNL Edema: No Peripheral Pulses WNL: Yes Neurological: Yes: WNL, Alert ...Motor Strength: WNL Psychiatric: Yes: WNL, Alert Labs: CBC, BMP 02/02/19 07:10 02/02/19 07:10 INR, PTT INR 1.33 (0.83-1.09) H 01/31/19 13:40 Fibrinogen 454.0 mg/dL (238-498) 02/02/19 07:10 Laboratory Results - last 24 hr 02/01/19 02/01/19 02/02/19 06:00 06:00 05:00 WBC RBC Hgb Hct MCV MCH MCHC RDW Plt Count MPV Absolute Neuts (auto) Neutrophils % Neutrophils % (Manual) 36.2 L Band Neutrophils % 2.1 Lymphocytes % Lymphocytes % (Manual) 35.1 Monocytes % Monocytes % (Manual) 13 H Eosinophils % Eosinophils % (Manual) 2.1 Basophils % Basophils % (Manual) 1.1 D Myelocytes % (Man) 0 D Promyelocytes % (Man) 0 Blast Cells % (Manual) 0 Nucleated RBC % Metamyelocytes 0 Hypochromia 0 Platelet Estimate Decreased Polychromasia 0 Poikilocytosis 0 Anisocytosis 0 Microcytosis 1+ Macrocytosis 0 Retic Count PTT (Actin FS) Fibrinogen Sodium Potassium Chloride Carbon Dioxide Anion Gap BUN Creatinine Est GFR (CKD-EPI)AfAm Est GFR (CKD-EPI)NonAf Random Glucose Calcium Iron TIBC Iron Saturation Unsaturated IBC Ferritin Total Bilirubin Direct Bilirubin AST ALT Alkaline Phosphatase LD Total C-Reactive Protein Total Protein Albumin Stool Occult Blood Negative Hep A IgM Ab Confirm Negative Hep Bs Antigen Negative Hep B Core IgM Ab Negative Hepatitis C Ab (EIA) 0.2 02/02/19 02/02/19 02/02/19 07:10 07:10 07:10 WBC 4.5 RBC 3.17 L Hgb 8.5 L Hct 25.0 L MCV 78.8 L MCH 26.9 MCHC 34.2 RDW 17.4 H Plt Count 79 L D MPV 7.1 L Absolute Neuts (auto) 1.3 L Neutrophils % 27.9 L Neutrophils % (Manual) Band Neutrophils % Lymphocytes % 56.4 H Lymphocytes % (Manual) Monocytes % 12.9 H Monocytes % (Manual) Eosinophils % 1.6 Eosinophils % (Manual) Basophils % 1.2 Basophils % (Manual) Myelocytes % (Man) Promyelocytes % (Man) Blast Cells % (Manual) Nucleated RBC % 0 Metamyelocytes Hypochromia Platelet Estimate Polychromasia Poikilocytosis Anisocytosis Microcytosis Macrocytosis Retic Count PTT (Actin FS) 38.7 H Fibrinogen Sodium 142 Potassium 4.2 Chloride 114 H Carbon Dioxide 23 Anion Gap 4 L BUN 10.1 Creatinine 0.6 Est GFR (CKD-EPI)AfAm 104.80 Est GFR (CKD-EPI)NonAf 90.42 Random Glucose 90 Calcium 8.7 Iron TIBC Iron Saturation Unsaturated IBC Ferritin Total Bilirubin 0.8 Direct Bilirubin AST 154 H ALT 164 H Alkaline Phosphatase 183 H LD Total 292 H C-Reactive Protein Total Protein 5.9 L Albumin 2.2 L Stool Occult Blood Hep A IgM Ab Confirm Hep Bs Antigen Hep B Core IgM Ab Hepatitis C Ab (EIA) 02/02/19 02/02/19 02/02/19 07:10 07:10 07:10 WBC RBC Hgb Hct MCV MCH MCHC RDW Plt Count MPV Absolute Neuts (auto) Neutrophils % Neutrophils % (Manual) Band Neutrophils % Lymphocytes % Lymphocytes % (Manual) Monocytes % Monocytes % (Manual) Eosinophils % Eosinophils % (Manual) Basophils % Basophils % (Manual) Myelocytes % (Man) Promyelocytes % (Man) Blast Cells % (Manual) Nucleated RBC % Metamyelocytes Hypochromia Platelet Estimate Polychromasia Poikilocytosis Anisocytosis Microcytosis Macrocytosis Retic Count 1.38 D PTT (Actin FS) Fibrinogen 454.0 Sodium Potassium Chloride Carbon Dioxide Anion Gap BUN Creatinine Est GFR (CKD-EPI)AfAm Est GFR (CKD-EPI)NonAf Random Glucose Calcium Iron TIBC Iron Saturation Unsaturated IBC Ferritin Total Bilirubin 0.6 Direct Bilirubin 0.2 AST 152 H ALT 164 H Alkaline Phosphatase 180 H LD Total C-Reactive Protein Total Protein 6.0 L Albumin 2.2 L Stool Occult Blood Hep A IgM Ab Confirm Hep Bs Antigen Hep B Core IgM Ab Hepatitis C Ab (EIA) 02/02/19 07:10 WBC RBC Hgb Hct MCV MCH MCHC RDW Plt Count MPV Absolute Neuts (auto) Neutrophils % Neutrophils % (Manual) Band Neutrophils % Lymphocytes % Lymphocytes % (Manual) Monocytes % Monocytes % (Manual) Eosinophils % Eosinophils % (Manual) Basophils % Basophils % (Manual) Myelocytes % (Man) Promyelocytes % (Man) Blast Cells % (Manual) Nucleated RBC % Metamyelocytes Hypochromia Platelet Estimate Polychromasia Poikilocytosis Anisocytosis Microcytosis Macrocytosis Retic Count PTT (Actin FS) Fibrinogen Sodium Potassium Chloride Carbon Dioxide Anion Gap BUN Creatinine Est GFR (CKD-EPI)AfAm Est GFR (CKD-EPI)NonAf Random Glucose Calcium Iron 40 L TIBC 202 L Iron Saturation 19 Unsaturated IBC 162 L Ferritin 655.0 H Total Bilirubin Direct Bilirubin AST ALT Alkaline Phosphatase LD Total C-Reactive Protein 9.6 H Total Protein Albumin Stool Occult Blood Hep A IgM Ab Confirm Hep Bs Antigen Hep B Core IgM Ab Hepatitis C Ab (EIA) Assessment/Plan 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
[2019-02-02] MEDS: DOXYCYCLINE INJECTION 100 MG in DEXTROSE 5%-WATER - 100 ML IVPB SCH ×2 (10:10→21:53)
[2019-02-02 12:20] LABS: ANISOCYTOSIS 1+; MACROCYTOSIS 0; OVALOCYTE 1+; PLATELET ESTIMATE DECREASED; TARGET CELLS 1+
[2019-02-02] MEDS: AZITHROMYCIN 250 MG TABLET PO SCH (14:32)
--- NOTE | 2019-02-02 15:06 | PN ---
Progress Note (short form) - Note Progress Note: appetite improved headache resolved no fevers still aches and fatigue Vital Signs Period Temp Pulse Resp BP Sys/Mariee Pulse Ox Last 24 Hr 97.4 F-99.6 F 91-99 18-20 113-127/43-71 cor-rrr lungs clear abd soft,nt ext no edema no rash CBC, BMP 02/02/19 07:10 02/02/19 07:10 Microbiology 02/02/19 07:10 Blood - Peripheral Venous Blood Parasites Smear - Preliminary 01/30/19 11:05 Blood - Peripheral Venous Blood Parasites Smear - Preliminary Babesia Species 01/29/19 17:15 Blood - Peripheral Venous Blood Culture - Preliminary NO GROWTH OBTAINED AFTER 72 HOURS, INCUBATION TO CONTINUE FOR 2 DAYS. 01/29/19 17:00 Blood - Peripheral Venous Blood Culture - Preliminary NO GROWTH OBTAINED AFTER 72 HOURS, INCUBATION TO CONTINUE FOR 2 DAYS. 02/01/19 06:00 Blood - Peripheral Venous Blood Parasites Smear - Final Babesia Species 01/31/19 10:10 Blood - Peripheral Venous Blood Parasites Smear - Final Babesia Species 01/29/19 19:10 Urine - Urine Clean Catch Urine Culture - Final Normal Urogenital Jeni cultures negative +babesia smear Selected Entries 02/01/19 18:00 Blood Pressure 124/66 Laboratory Tests 01/29/19 01/31/19 02/01/19 17:15 07:22 06:00 Lymphocytes % No Result Required. AST 104 H 129 H ALT 106 H 128 H Alkaline Phosphatase 154 H 162 H LD Total 285 H 275 H 02/02/19 07:10 Lymphocytes % AST 152 H ALT 164 H Alkaline Phosphatase 180 H LD Total a/p fever- babesia -parasitemia less then 1% thrombocytopenia improved anemia stable today abnl lfts-persistent- ?meds- ?prior macrobid, f/u pcrs when available hopefully d/c any extra meds continue ivf continue doxycycline day #4 for probable tick related illness (anaplasma, ehrlichia pcr pending) zithromax/mepron day #3 blood smear +- parasitemia lower lyme/anaplasma pcr, ehrlichia pcr all pending hepatitis serology negative sonogram of liver-fatty liver,
--- NOTE | 2019-02-02 20:01 | PN ---
Progress Note (short form) - Note Progress Note: Patient seen and examined Temp spike with chills - recultured Rising LFT's -Etiology unclear Liver ultrasound- fatty liver Chest x-ray - no definite infiltrate by my evaluation . Some blunting on left , but lateral -clear ROS- headaches, nausea, soft stool, muscle aches with fevers- improvedwith defervescence Last Vital Signs Temp Pulse Resp BP Pulse Ox 100.6 F H 90 20 127/80 96 02/02/19 18:41 02/02/19 15:00 02/02/19 15:00 02/02/19 15:00 01/31/19 21:00 HEENT: ALISON, EOM Intact Oropharynx: No thrush, No mucositis Neck: Supple Cor: RSR, No murmurs, No gallops Lungs: Clear to P&A Abd: Soft, Normal bowel sounds, No organomegaly Ext:No significant edema Skin: No rashes, Integument intact Current Medications Generic Name Dose Route Start Last Admin Trade Name Freq PRN Reason Stop Dose Admin Acetaminophen 650 mg 02/01/19 20:56 02/02/19 17:35 Tylenol - PO 650 mg Q4H PRN Administration FEVER Atovaquone 750 mg 01/30/19 17:20 02/02/19 17:36 Mepron - PO 750 mg BIDWM SUNI Administration Azithromycin 250 mg 02/03/19 10:00 Zithromax - PO DAILY SUNI Sodium Chloride 1,000 mls @ 75 mls/hr 01/29/19 22:00 02/01/19 22:57 Normal Saline - IV 75 mls/hr ASDIR SUNI Administration Doxycycline Hyclate 100 mg/ 100 mls @ 50 mls/hr 01/29/19 22:00 02/02/19 10:10 Dextrose IVPB 50 mls/hr BID SUNI Administration Levothyroxine Sodium 88 mcg 01/30/19 07:00 02/02/19 06:09 Synthroid - PO 88 mcg DAILY@0700 SUNI Administration Metoprolol Succinate 25 mg 01/30/19 10:00 02/02/19 09:12 Toprol Xl - PO 25 mg DAILY SUNI Administration Pantoprazole Sodium 40 mg 02/01/19 22:00 02/02/19 09:12 Protonix - PO 40 mg BID SUNI Administration Impression: Babesiosis---parasite count improved , Hct stable, platelets increasing, WBC stable with falling PMN's Abnormal LFT's --? drug related ; with improvement in babesiosis if related would expect improvement Pancytopenia- secondary to babesios- to monitor Fevers- ?? etiology - await additional cultures
--- NOTE | 2019-02-02 20:44 | PN.GI ---
GI Progress Note Subjective: GI Note: Had fever to 102.7 brought down by acetaminophen. Has avoided NSAIDs since I spoke with her about it. No headache but does feels abdominal bloating. FUA reveals no obstruction but residual stool is seen. Lee has been moving her bowels. Sonogram reveals a fatty liver but no abscess, biliary dilation or masses. - Objective Vital Signs: Vital Signs Temperature 100.6 F H 02/02/19 18:41 Pulse Rate 96 H 02/02/19 18:00 Respiratory Rate 20 02/02/19 18:00 Blood Pressure 123/67 02/02/19 18:00 O2 Sat by Pulse Oximetry (%) 96 01/31/19 21:00 Laboratory Tests 01/30/19 02/01/19 02/02/19 08:00 06:00 07:10 WBC 4.3 4.5 Hgb 10.1 L 8.6 L 8.5 L Plt Count 63 L 79 L D Iron TIBC Iron Saturation Unsaturated IBC Ferritin Total Bilirubin Direct Bilirubin AST ALT Alkaline Phosphatase C-Reactive Protein 02/02/19 02/02/19 07:10 07:10 WBC Hgb Plt Count Iron 40 L TIBC 202 L Iron Saturation 19 Unsaturated IBC 162 L Ferritin 655.0 H Total Bilirubin 0.6 Direct Bilirubin 0.2 AST 152 H ALT 164 H Alkaline Phosphatase 180 H C-Reactive Protein 9.6 H Laboratory Tests 02/01/19 06:00 Hep A IgM Ab Confirm Negative Hep Bs Antigen Negative Hep B Core IgM Ab Negative Hepatitis C Ab (EIA) 0.2 Constitutional: Calm Eyes: Yes: Conjunctiva Clear ...Auscultate: Yes: Normoactive Bowel Sounds ...Palpate: Yes: Soft, Other (nontender) ...Percussion: Yes: Tympanitic Labs: CBC, BMP 02/02/19 07:10 02/02/19 07:10 INR, PTT INR 1.33 (0.83-1.09) H 01/31/19 13:40 Fibrinogen 454.0 mg/dL (238-498) 02/02/19 07:10 Assessment/Plan Assessment: - Reactive hepatopathy to an infection vs DILI ( drug induced liver injury) ? Macrobid, Motrin may have contributed. Liver serologies and iron studie are unremarkable. - Abdominal bloating - Stool for occult blood negative Plan: -- Follow LFTs and repeat INR -- PPI to prevent a stress gastritis bleed -- Start Miralax Problem List - Problems (1) Abnormal LFTs (liver function tests) Code(s): R94.5 - ABNORMAL RESULTS OF LIVER FUNCTION STUDIES (2) Myalgia Code(s): M79.10 - MYALGIA, UNSPECIFIED SITE (3) Fever Code(s): R50.9 - FEVER, UNSPECIFIED (4) HTN (hypertension) Code(s): I10 - ESSENTIAL (PRIMARY) HYPERTENSION (5) Headache Code(s): R51 - HEADACHE (6) Hypothyroidism Code(s): E03.9 - HYPOTHYROIDISM, UNSPECIFIED (7) Thrombocytopenia Code(s): D69.6 - THROMBOCYTOPENIA, UNSPECIFIED
[2019-02-02 21:40] LABS: URINE APPEARANCE CLEAR; URINE BILIRUBIN NEGATIVE (NEGATIVE); URINE COLOR YELLOW; URINE GLUCOSE (UA) NEGATIVE (NEGATIVE); URINE KETONE NEGATIVE (NEGATIVE); URINE LEUK ESTERASE NEGATIVE (NEGATIVE); URINE NITRITE NEGATIVE (NEGATIVE); URINE PROTEIN NEGATIVE (NEGATIVE); URINE UROBILINOGEN 0.2 mg/dL (0.2-1.0)
[2019-02-02] MEDS: SODIUM CHLORIDE 1,000 ML IV SCH (21:54)
[2019-02-03] MEDS: LEVOTHYROXINE NA 88 MCG TABLET (FP) PO SCH (06:22)
[2019-02-03 07:38] LABS: EOS % 0.7 % (0-4.5); HEMATOCRIT 24.5 % (32.4-45.2); HEMOGLOBIN 8.4 GM/dL (10.7-15.3); MCH 26.6 pg (25.7-33.7); MCHC 34.2 g/dl (32.0-36.0); MEAN CELL VOLUME 77.8 fl (80-96); MEAN PLT VOLUME 6.8 fl (7.5-11.1); MONO % 15.5 % (3.8-10.2); NEUT % 31.8 % (42.8-82.8); PLATELET COUNT 96 K/MM3 (134-434); RBC 3.15 M/mm3 (3.60-5.2); RDW 16.8 % (11.6-15.6)
[2019-02-03 07:43] LABS: INR 1.2 (0.83-1.09); PROTHROMBIN TIME (PATIENT) 14.2 SEC (9.7-13.0)
[2019-02-03 08:40] LABS: ALBUMIN 2.3 g/dl (3.4-5.0); BILIRUBIN,DIRECT 0.3 mg/dL (0.0-0.2); BILIRUBIN,TOTAL 0.7 mg/dL (0.2-1); BLOOD UREA NITROGEN 8.9 mg/dL (7-18); CALCIUM 8.7 mg/dL (8.5-10.1); CREATININE 0.6 mg/dL (0.55-1.3); TOT PROT 6.2 g/dl (6.4-8.2)
--- NOTE | 2019-02-03 09:46 | PN ---
Progress Note (short form) - Note Progress Note: appetite improved febrile to 102.8 last night with chills, myalgia and headache now feels well requesting iv out- no diarrhea Vital Signs Period Temp Pulse Resp BP Sys/Mariee Pulse Ox Last 24 Hr 97.4 F-102.7 F 90-99 20-20 111-127/58-80 looks comfortable iv in wrist has some swelling, no erythema cor rrr lungs clear abd soft,nt ext no edema no rash CBC, BMP 02/03/19 06:10 02/03/19 06:10 Microbiology 01/29/19 17:15 Blood - Peripheral Venous Blood Culture - Preliminary NO GROWTH OBTAINED AFTER 96 HOURS, INCUBATION TO CONTINUE FOR 1 DAYS. 01/29/19 17:00 Blood - Peripheral Venous Blood Culture - Preliminary NO GROWTH OBTAINED AFTER 96 HOURS, INCUBATION TO CONTINUE FOR 1 DAYS. 02/02/19 07:10 Blood - Peripheral Venous Blood Parasites Smear - Preliminary 01/30/19 11:05 Blood - Peripheral Venous Blood Parasites Smear - Preliminary Babesia Species 02/01/19 06:00 Blood - Peripheral Venous Blood Parasites Smear - Final Babesia Species 01/31/19 10:10 Blood - Peripheral Venous Blood Parasites Smear - Final Babesia Species 01/29/19 19:10 Urine - Urine Clean Catch Urine Culture - Final Normal Urogenital Jeni cultures negative +babesia smear a/p fever- babesia -parasitemia less then 1% thrombocytopenia improved anemia stable today abnl lfts-persistent- ?meds- ?prior macrobid, f/u pcrs when available hopefully d/c any extra meds d/c ivf continue doxycycline day #5 for probable tick related illness (anaplasma, ehrlichia pcr pending)- zithromax/mepron day #5 blood smear +- parasitemia lower lyme/anaplasma pcr, ehrlichia pcr all pending hepatitis serology negative sonogram of liver-fatty liver, cxray negative babesia PCR positive now with recurrent fever- repeat blood culture and smear sent today will ct scan abd/pelvis has contact with young children check cmv, ebv and parvo dengue, [place] per family request
[2019-02-03] MEDS ORDERED: AZITHROMYCIN 250 MG TABLET PO SCH ×2 (10:00→18:08)
[2019-02-03] MEDS: metoPROLOL SUCCINATE 25 MG TAB.SR.24H (FP) PO SCH (10:02)
[2019-02-03] MEDS: POLYETHYLENE GLYCOL 3350 119 GM BTL PO SCH (10:03)
[2019-02-03] MEDS: PANTOPRAZOLE 40 MG TABLET (FP) PO SCH ×2 (10:03→21:15)
[2019-02-03] MEDS: ATOVAQUONE 750 MG/5 ML (UNIT-DOSE PACKAGING) PO SCH ×2 (10:03→17:25)
--- NOTE | 2019-02-03 10:16 | PN ---
Progress Note, Physician Chief Complaint: pt seen and examined,feel;s better afebrile now,T max 102 pt tolerating feeds ID and hematology ,GI note appreciated tolertaing feeds blood cul negatiive Labs noted LFT increasing HB and plt stable Abd u/s shows fatty liver,chest xray negative abdominal x ray negative - Current Medication List Current Medications: Active Medications Acetaminophen (Tylenol -) 650 mg PO Q4H PRN PRN Reason: FEVER Last Admin: 02/02/19 17:35 Dose: 650 mg Atovaquone (Mepron -) 750 mg PO BIDWM [facility] Last Admin: 02/03/19 10:03 Dose: 750 mg Azithromycin (Zithromax -) 250 mg PO DAILY [facility] Last Admin: 02/03/19 10:02 Dose: 250 mg Doxycycline Hyclate (Vibramycin -) 100 mg PO BID@1000,1800 [facility] Lactobacillus Acidophilus (Bacid -) 1 tab PO DAILY [facility] Levothyroxine Sodium (Synthroid -) 88 mcg PO DAILY@0700 [facility] Last Admin: 02/03/19 06:22 Dose: 88 mcg Metoprolol Succinate (Toprol Xl -) 25 mg PO DAILY [facility] Last Admin: 02/03/19 10:02 Dose: 25 mg Pantoprazole Sodium (Protonix -) 40 mg PO BID [facility] Last Admin: 02/03/19 10:03 Dose: 40 mg Polyethylene Glycol (Miralax (For Daily Use) -) 17 gm PO DAILY [facility] Last Admin: 02/03/19 10:03 Dose: Not Given - Objective Vital Signs: Vital Signs Temperature 100.1 F H 02/03/19 06:00 Pulse Rate 91 H 02/03/19 06:00 Respiratory Rate 20 02/03/19 06:00 Blood Pressure 111/58 L 02/03/19 06:00 O2 Sat by Pulse Oximetry (%) 96 01/31/19 21:00 Constitutional: Yes: No Distress Eyes: Yes: Conjunctiva Clear HENT: Yes: Atraumatic Neck: Yes: Supple Cardiovascular: Yes: Regular Rate and Rhythm Respiratory: Yes: Regular, CTA Bilaterally Gastrointestinal: Yes: Normal Bowel Sounds, Soft Musculoskeletal: Yes: WNL Extremities: Yes: WNL Edema: No Peripheral Pulses WNL: Yes Neurological: Yes: WNL, Alert ...Motor Strength: WNL Psychiatric: Yes: WNL, Alert Labs: CBC, BMP 02/03/19 06:10 02/03/19 06:10 INR, PTT INR 1.20 (0.83-1.09) H 02/03/19 06:10 Fibrinogen 454.0 mg/dL (238-498) 02/02/19 07:10 Laboratory Results - last 24 hr 02/02/19 02/02/19 02/03/19 07:10 18:43 06:10 WBC RBC Hgb Hct MCV MCH MCHC RDW Plt Count MPV Absolute Neuts (auto) Neutrophils % Neutrophils % (Manual) 30.6 L Band Neutrophils % 3.1 Lymphocytes % Lymphocytes % (Manual) 42.9 H D Monocytes % Monocytes % (Manual) 13 H Eosinophils % Eosinophils % (Manual) 0.0 D Basophils % Basophils % (Manual) 2.0 Myelocytes % (Man) 0 Promyelocytes % (Man) 0 Blast Cells % (Manual) 0 Nucleated RBC % Metamyelocytes 1 D Hypochromia 0 Platelet Estimate Decreased Polychromasia 0 Poikilocytosis 0 Anisocytosis 1+ Microcytosis 1+ Macrocytosis 0 Target Cells 1+ Ovalocytes 1+ PT with INR INR Sodium 138 Potassium 4.0 Chloride 108 H Carbon Dioxide 24 Anion Gap 6 L BUN 8.9 Creatinine 0.6 Est GFR (CKD-EPI)AfAm 104.80 Est GFR (CKD-EPI)NonAf 90.42 Random Glucose 105 Calcium 8.7 Total Bilirubin 0.7 Direct Bilirubin 0.3 H AST 177 H ALT 194 H Alkaline Phosphatase 233 H Creatine Kinase 45 Total Protein 6.2 L Albumin 2.3 L Urine Color Yellow Urine Appearance Clear Urine pH 5.0 Ur Specific Turner 1.009 L Urine Protein Negative Urine Glucose (UA) Negative Urine Ketones Negative Urine Blood Negative Urine Nitrite Negative Urine Bilirubin Negative Urine Urobilinogen 0.2 Ur Leukocyte Esterase Negative 02/03/19 02/03/19 06:10 06:10 WBC 5.0 RBC 3.15 L Hgb 8.4 L Hct 24.5 L MCV 77.8 L MCH 26.6 MCHC 34.2 RDW 16.8 H Plt Count 96 L D MPV 6.8 L Absolute Neuts (auto) 1.6 Neutrophils % 31.8 L Neutrophils % (Manual) Band Neutrophils % Lymphocytes % 51.0 H Lymphocytes % (Manual) Monocytes % 15.5 H Monocytes % (Manual) Eosinophils % 0.7 Eosinophils % (Manual) Basophils % 1.0 Basophils % (Manual) Myelocytes % (Man) Promyelocytes % (Man) Blast Cells % (Manual) Nucleated RBC % 0 Metamyelocytes Hypochromia Platelet Estimate Polychromasia Poikilocytosis Anisocytosis Microcytosis Macrocytosis Target Cells Ovalocytes PT with INR 14.20 H INR 1.20 H Sodium Potassium Chloride Carbon Dioxide Anion Gap BUN Creatinine Est GFR (CKD-EPI)AfAm Est GFR (CKD-EPI)NonAf Random Glucose Calcium Total Bilirubin Direct Bilirubin AST ALT Alkaline Phosphatase Creatine Kinase Total Protein Albumin Urine Color Urine Appearance Urine pH Ur Specific Turner Urine Protein Urine Glucose (UA) Urine Ketones Urine Blood Urine Nitrite Urine Bilirubin Urine Urobilinogen Ur Leukocyte Esterase Assessment/Plan Babesiosis parasite positive in the peripheral smear thrombocytopenia,anemia abnormal LFT Dysuria blood cul negative PLAN continue antibiotics as per ID Monitor CBC,CMP And LFT ID and Oncology F/u GI f/u will f/u pt
[2019-02-03] MEDS: DOXYCYCLINE HYCLATE 100 MG CAPSULE PO SCH ×2 (11:08→17:24)
[2019-02-03] MEDS: LACTOBACILLUS ACIDOPHILUS 1 TABLET PO SCH (11:08)
[2019-02-03 13:23] LABS: PLATELET ESTIMATE DECREASED
[2019-02-04] MEDS: LEVOTHYROXINE NA 88 MCG TABLET (FP) PO SCH (06:31)
[2019-02-04 07:07] LABS: CMV IgM 40.9 AU/mL (0.0-29.9)
[2019-02-04 07:46] LABS: BASO % 1.1 % (0-2.0); EOS % 1.7 % (0-4.5); HEMATOCRIT 25.4 % (32.4-45.2); HEMOGLOBIN 8.7 GM/dL (10.7-15.3); LYMPH % 55.5 % (8-40); MCH 26.7 pg (25.7-33.7); MCHC 34.1 g/dl (32.0-36.0); MEAN CELL VOLUME 78.3 fl (80-96); MEAN PLT VOLUME 6.9 fl (7.5-11.1); MONO % 17.2 % (3.8-10.2); NEUT % 24.5 % (42.8-82.8); PLATELET COUNT 106 K/MM3 (134-434); RBC 3.24 M/mm3 (3.60-5.2); WHITE BLOOD COUNT 5.8 K/mm3 (4.0-10.0)
[2019-02-04 08:14] LABS: ALBUMIN 2.4 g/dl (3.4-5.0); BILIRUBIN,DIRECT 0.2 mg/dL (0.0-0.2); BILIRUBIN,TOTAL 0.6 mg/dL (0.2-1); BLOOD UREA NITROGEN 11.4 mg/dL (7-18); CREATININE 0.7 mg/dL (0.55-1.3); POTASSIUM 4.2 mmol/L (3.5-5.1); TOT PROT 6.6 g/dl (6.4-8.2)
[2019-02-04] MEDS: LACTOBACILLUS ACIDOPHILUS 1 TABLET PO SCH (09:56)
[2019-02-04] MEDS: DOXYCYCLINE HYCLATE 100 MG CAPSULE PO SCH (09:56)
[2019-02-04] MEDS: PANTOPRAZOLE 40 MG TABLET (FP) PO SCH ×2 (09:56→21:25)
[2019-02-04] MEDS: metoPROLOL SUCCINATE 25 MG TAB.SR.24H (FP) PO SCH (09:56)
[2019-02-04] MEDS: POLYETHYLENE GLYCOL 3350 119 GM BTL PO SCH ×2 (09:58→21:25)
--- NOTE | 2019-02-04 10:08 | PN ---
Progress Note, Physician Chief Complaint: pt seen and examined,feel;s better afebrile now,T max 99.4 pt tolerating feeds ID and hematology ,GI note appreciated tolertaing feeds blood cul negatiive Labs noted LFT improving HB and plt stable Abd u/s shows fatty liver,chest xray negative abdominal x ray negative CT abd and pelvis no acute pathology - Current Medication List Current Medications: Active Medications Acetaminophen (Tylenol -) 650 mg PO Q4H PRN PRN Reason: FEVER Last Admin: 02/02/19 17:35 Dose: 650 mg Atovaquone (Mepron -) 750 mg PO BIDWM [facility] Last Admin: 02/03/19 17:25 Dose: 750 mg Azithromycin (Zithromax -) 500 mg PO DAILY [facility] Stop: 02/06/19 10:01 Doxycycline Hyclate (Vibramycin -) 100 mg PO BID@1000,1800 [facility] Last Admin: 02/04/19 09:56 Dose: 100 mg Lactobacillus Acidophilus (Bacid -) 1 tab PO DAILY [facility] Last Admin: 02/04/19 09:56 Dose: 1 tab Levothyroxine Sodium (Synthroid -) 88 mcg PO DAILY@0700 [facility] Last Admin: 02/04/19 06:31 Dose: 88 mcg Metoprolol Succinate (Toprol Xl -) 25 mg PO DAILY [facility] Last Admin: 02/04/19 09:56 Dose: 25 mg Pantoprazole Sodium (Protonix -) 40 mg PO BID [facility] Last Admin: 02/04/19 09:56 Dose: 40 mg Polyethylene Glycol (Miralax (For Daily Use) -) 17 gm PO DAILY [facility] Last Admin: 02/04/19 09:58 Dose: Not Given - Objective Vital Signs: Vital Signs Temperature 98.3 F 02/04/19 08:59 Pulse Rate 90 02/04/19 08:59 Respiratory Rate 20 02/04/19 08:59 Blood Pressure 131/67 02/04/19 08:59 O2 Sat by Pulse Oximetry (%) 98 02/03/19 09:00 Constitutional: Yes: No Distress Eyes: Yes: Conjunctiva Clear HENT: Yes: Atraumatic Neck: Yes: Supple Cardiovascular: Yes: Regular Rate and Rhythm Respiratory: Yes: Regular, CTA Bilaterally Gastrointestinal: Yes: Normal Bowel Sounds, Soft Musculoskeletal: Yes: WNL Extremities: Yes: WNL Edema: No Peripheral Pulses WNL: Yes Neurological: Yes: WNL, Alert ...Motor Strength: WNL Psychiatric: Yes: WNL Labs: CBC, BMP 02/04/19 06:50 02/04/19 06:50 INR, PTT INR 1.20 (0.83-1.09) H 02/03/19 06:10 Fibrinogen 454.0 mg/dL (238-498) 02/02/19 07:10 Laboratory Results - last 24 hr 02/02/19 02/03/19 02/03/19 07:10 06:10 10:15 WBC RBC Hgb Hct MCV MCH MCHC RDW Plt Count MPV Absolute Neuts (auto) Total Counted 100 Neutrophils % Neutrophils % (Manual) 39.0 L Band Neutrophils % 3.0 Lymphocytes % Lymphocytes % (Manual) 38.0 Monocytes % Monocytes % (Manual) 16 H Eosinophils % Basophils % Basophils % (Manual) 1.0 Nucleated RBC % Metamyelocytes 1 Platelet Estimate Decreased Sodium Potassium Chloride Carbon Dioxide Anion Gap BUN Creatinine Est GFR (CKD-EPI)AfAm Est GFR (CKD-EPI)NonAf Random Glucose Calcium Total Bilirubin Direct Bilirubin AST ALT Alkaline Phosphatase Total Protein Albumin Tot Complement (CH50) 48 CMV IgG Ab > 10.00 H CMV IgM Ab 40.9 H 02/04/19 02/04/19 06:50 06:50 WBC 5.8 RBC 3.24 L Hgb 8.7 L Hct 25.4 L MCV 78.3 L MCH 26.7 MCHC 34.1 RDW 17.0 H Plt Count 106 L MPV 6.9 L Absolute Neuts (auto) 1.4 L Total Counted Neutrophils % 24.5 L D Neutrophils % (Manual) Band Neutrophils % Lymphocytes % 55.5 H Lymphocytes % (Manual) Monocytes % 17.2 H Monocytes % (Manual) Eosinophils % 1.7 D Basophils % 1.1 Basophils % (Manual) Nucleated RBC % 0 Metamyelocytes Platelet Estimate Sodium 139 Potassium 4.2 Chloride 108 H Carbon Dioxide 27 Anion Gap 4 L BUN 11.4 Creatinine 0.7 Est GFR (CKD-EPI)AfAm 99.62 Est GFR (CKD-EPI)NonAf 85.95 Random Glucose 93 Calcium 9.0 Total Bilirubin 0.6 Direct Bilirubin 0.2 AST 158 H ALT 188 H Alkaline Phosphatase 228 H Total Protein 6.6 Albumin 2.4 L Tot Complement (CH50) CMV IgG Ab CMV IgM Ab - ....Imaging Cat Scan: Report Reviewed Assessment/Plan Babesiosis parasite positive in the peripheral smear thrombocytopenia,anemia abnormal LFT improving blood cul negative Adomen and pelvic negative PLAN continue antibiotics as per ID Monitor CBC,CMP And LFT ID and Oncology F/u GI f/u will f/u pt
[2019-02-04] MEDS: ATOVAQUONE 750 MG/5 ML (UNIT-DOSE PACKAGING) PO SCH (10:28)
[2019-02-04] MEDS: AZITHROMYCIN 250 MG TABLET PO SCH (10:28)
[2019-02-04 10:41] LABS: E.chaff HME IgG Negative
[2019-02-04 11:29] LABS: ANISOCYTOSIS 2+; MACROCYTOSIS 1+; PLATELET ESTIMATE DECREASED; TEAR DROP CELLS 1+; TOXIC GRANULATION 1+
--- NOTE | 2019-02-04 13:59 | PN ---
Progress Note (short form) - Note Progress Note: appetite improved no fevers Vital Signs Period Temp Pulse Resp BP Sys/Mariee Pulse Ox Last 24 Hr 98.3 F-99.5 F 90-94 20-85 110-131/54-67 98 cor-rrr lungs clear abd soft,nt ext no edema ct abd/pelvis- normal pcr for malaria negative pcr anaplasma, ehrlichia negative CBC, BMP 02/04/19 06:50 02/04/19 06:50 a/p fever- babesia -parasitemia less then 1% thrombocytopenia improved anemia stable today abnl lfts-persistent- ?meds- ?prior macrobid, f/u pcrs when available hopefully d/c any extra meds d/c doxycycline continue zithromax/mepron day day #6 repeat labs in am lfts have stabilized d/w patient and family at bedside
--- NOTE | 2019-02-04 22:01 | PN.GI ---
GI Progress Note Subjective: GI NOte: LFTs have fortunately started to normalize. Having BM but remains bloated. I explained that residual stool was seen on the FUA which I hope to mobilize with the Miralax. She had been refusing it but will now comply - Objective Vital Signs: Vital Signs Temperature 98.8 F 02/04/19 21:31 Pulse Rate 87 02/04/19 21:31 Respiratory Rate 18 02/04/19 21:31 Blood Pressure 125/67 02/04/19 21:31 O2 Sat by Pulse Oximetry (%) 98 02/04/19 09:00 Laboratory Tests 02/02/19 02/03/19 02/04/19 07:10 06:10 06:50 Total Bilirubin 0.7 0.6 Direct Bilirubin 0.2 AST 152 H 177 H 158 H ALT 164 H 194 H 188 H Alkaline Phosphatase 180 H 233 H 228 H Constitutional: No Distress ...Auscultate: Yes: Hypoactive Bowel Sounds ...Palpate: Yes: Soft, Other (nontender) ...Percussion: Yes: Tympanitic Labs: CBC, BMP 02/04/19 06:50 02/04/19 06:50 INR, PTT INR 1.20 (0.83-1.09) H 02/03/19 06:10 Fibrinogen 454.0 mg/dL (238-498) 02/02/19 07:10 Assessment/Plan Assessment: - Reactive hepatopathy to an infection vs DILI ( drug induced liver injury) improving - Abdominal bloating - Stool for occult blood negative Plan: -- Follow LFTs -- PPI to prevent a stress gastritis bleed -- Continue Miralax Problem List - Problems (1) Abnormal LFTs (liver function tests) Code(s): R94.5 - ABNORMAL RESULTS OF LIVER FUNCTION STUDIES (2) Myalgia Code(s): M79.10 - MYALGIA, UNSPECIFIED SITE (3) Fever Code(s): R50.9 - FEVER, UNSPECIFIED (4) HTN (hypertension) Code(s): I10 - ESSENTIAL (PRIMARY) HYPERTENSION (5) Headache Code(s): R51 - HEADACHE (6) Hypothyroidism Code(s): E03.9 - HYPOTHYROIDISM, UNSPECIFIED (7) Thrombocytopenia Code(s): D69.6 - THROMBOCYTOPENIA, UNSPECIFIED
[2019-02-05] MEDS ORDERED: PT OWN MED DRAWER 7, Y5N ONE ×3 (02:47→17:02)
[2019-02-05] MEDS: LEVOTHYROXINE NA 88 MCG TABLET (FP) PO SCH (06:45)
[2019-02-05] MEDS: ATOVAQUONE 750 MG/5 ML (UNIT-DOSE PACKAGING) PO SCH ×2 (08:23→17:23)
[2019-02-05 08:51] LABS: BASO % 1.1 % (0-2.0); EOS % 2.2 % (0-4.5); HEMATOCRIT 24.9 % (32.4-45.2); HEMOGLOBIN 8.4 GM/dL (10.7-15.3); LYMPH % 49.5 % (8-40); MCH 26.4 pg (25.7-33.7); MCHC 33.7 g/dl (32.0-36.0); MEAN CELL VOLUME 78.6 fl (80-96); MEAN PLT VOLUME 6.9 fl (7.5-11.1); MONO % 18.6 % (3.8-10.2); NEUT % 28.6 % (42.8-82.8); PLATELET COUNT 122 K/MM3 (134-434); RBC 3.16 M/mm3 (3.60-5.2)
[2019-02-05 08:56] LABS: ALBUMIN 2.4 g/dl (3.4-5.0); BILIRUBIN,DIRECT 0.2 mg/dL (0.0-0.2); BILIRUBIN,TOTAL 0.6 mg/dL (0.2-1); CALCIUM 8.8 mg/dL (8.5-10.1); CREATININE 0.7 mg/dL (0.55-1.3); POTASSIUM 4.2 mmol/L (3.5-5.1); TOT PROT 6.8 g/dl (6.4-8.2)
[2019-02-05] MEDS: PANTOPRAZOLE 40 MG TABLET (FP) PO SCH ×2 (09:12→21:08)
[2019-02-05] MEDS: LACTOBACILLUS ACIDOPHILUS 1 TABLET PO SCH (09:12)
[2019-02-05] MEDS: AZITHROMYCIN 250 MG TABLET PO SCH (09:12)
[2019-02-05] MEDS: metoPROLOL SUCCINATE 25 MG TAB.SR.24H (FP) PO SCH (09:12)
[2019-02-05] MEDS: POLYETHYLENE GLYCOL 3350 119 GM BTL PO SCH (09:14)
--- NOTE | 2019-02-05 10:11 | PN ---
Progress Note, Physician Chief Complaint: pt seen and examined,feel;s better afebrile now pt tolerating feeds ID and hematology ,GI note appreciated tolertaing feeds blood cul negatiive Labs noted LFT improving HB and plt stable Abd u/s shows fatty liver,chest xray negative abdominal x ray negative CT abd and pelvis no acute pathology - Current Medication List Current Medications: Active Medications Acetaminophen (Tylenol -) 650 mg PO Q4H PRN PRN Reason: FEVER Last Admin: 02/02/19 17:35 Dose: 650 mg Atovaquone (Mepron -) 750 mg PO BIDWM [facility] Last Admin: 02/05/19 08:23 Dose: 750 mg Azithromycin (Zithromax -) 500 mg PO DAILY [facility] Stop: 02/06/19 10:01 Last Admin: 02/05/19 09:12 Dose: 500 mg Lactobacillus Acidophilus (Bacid -) 1 tab PO DAILY [facility] Last Admin: 02/05/19 09:12 Dose: 1 tab Levothyroxine Sodium (Synthroid -) 88 mcg PO DAILY@0700 [facility] Last Admin: 02/05/19 06:45 Dose: 88 mcg Metoprolol Succinate (Toprol Xl -) 25 mg PO DAILY [facility] Last Admin: 02/05/19 09:12 Dose: 25 mg Pantoprazole Sodium (Protonix -) 40 mg PO BID [facility] Last Admin: 02/05/19 09:12 Dose: 40 mg Polyethylene Glycol (Miralax (For Daily Use) -) 17 gm PO DAILY [facility] Last Admin: 02/05/19 09:14 Dose: 17 gm - Objective Vital Signs: Vital Signs Temperature 98.6 F 02/05/19 08:04 Pulse Rate 79 02/05/19 08:04 Respiratory Rate 16 02/05/19 08:04 Blood Pressure 119/63 02/05/19 08:04 O2 Sat by Pulse Oximetry (%) 98 02/04/19 21:00 Constitutional: Yes: No Distress Eyes: Yes: Conjunctiva Clear HENT: Yes: Atraumatic Neck: Yes: Supple Cardiovascular: Yes: Regular Rate and Rhythm Respiratory: Yes: Regular, CTA Bilaterally Gastrointestinal: Yes: Normal Bowel Sounds, Soft Musculoskeletal: Yes: WNL Extremities: Yes: WNL Edema: No Peripheral Pulses WNL: Yes ...Motor Strength: WNL Psychiatric: Yes: WNL, Alert Labs: CBC, BMP 02/05/19 07:30 02/05/19 07:30 INR, PTT INR 1.20 (0.83-1.09) H 02/03/19 06:10 Fibrinogen 454.0 mg/dL (238-498) 02/02/19 07:10 Laboratory Results - last 24 hr 01/29/19 01/29/19 02/03/19 17:15 17:15 06:10 WBC RBC Hgb Hct MCV MCH MCHC RDW Plt Count MPV Absolute Neuts (auto) Neutrophils % Neutrophils % (Manual) Band Neutrophils % Lymphocytes % Lymphocytes % (Manual) Monocytes % Monocytes % (Manual) Eosinophils % Eosinophils % (Manual) Basophils % Basophils % (Manual) Myelocytes % (Man) Promyelocytes % (Man) Blast Cells % (Manual) Nucleated RBC % Metamyelocytes Hypochromia Toxic Granulation Platelet Estimate Polychromasia Poikilocytosis Anisocytosis Microcytosis Macrocytosis Tear Drop Cells Stomatocytes Sodium Potassium Chloride Carbon Dioxide Anion Gap BUN Creatinine Est GFR (CKD-EPI)AfAm Est GFR (CKD-EPI)NonAf Random Glucose Calcium Total Bilirubin Direct Bilirubin AST ALT Alkaline Phosphatase Total Protein Albumin Aldolase 3.7 A.phagocytophil DNA PCR Negative Ehrlichia IgG Antibody Negative Ehrlichia IgM Antibody Negative E. chaffeensis IgG Ab Negative E. chaffeensis IgM Ab Negative E.chaffeensis DNA (PCR) Negative 02/04/19 02/05/19 02/05/19 06:50 07:30 07:30 WBC 6.0 RBC 3.16 L Hgb 8.4 L Hct 24.9 L MCV 78.6 L MCH 26.4 MCHC 33.7 RDW 17.0 H Plt Count 122 L MPV 6.9 L Absolute Neuts (auto) 1.7 Neutrophils % 28.6 L Neutrophils % (Manual) 22.5 L Band Neutrophils % 5.1 Lymphocytes % 49.5 H Lymphocytes % (Manual) 35.7 Monocytes % 18.6 H Monocytes % (Manual) 9 Eosinophils % 2.2 Eosinophils % (Manual) 2.0 D Basophils % 1.1 Basophils % (Manual) 1.0 Myelocytes % (Man) 0 Promyelocytes % (Man) 0 Blast Cells % (Manual) 0 Nucleated RBC % 0 Metamyelocytes 1 Hypochromia 0 Toxic Granulation 1+ Platelet Estimate Decreased Polychromasia 2+ Poikilocytosis 1+ Anisocytosis 2+ Microcytosis 1+ Macrocytosis 1+ Tear Drop Cells 1+ Stomatocytes 1+ Sodium 139 Potassium 4.2 Chloride 108 H Carbon Dioxide 25 Anion Gap 6 L BUN 11.0 Creatinine 0.7 Est GFR (CKD-EPI)AfAm 99.62 Est GFR (CKD-EPI)NonAf 85.95 Random Glucose 91 Calcium 8.8 Total Bilirubin 0.6 Direct Bilirubin 0.2 AST 127 H ALT 166 H Alkaline Phosphatase 213 H Total Protein 6.8 Albumin 2.4 L Aldolase A.phagocytophil DNA PCR Ehrlichia IgG Antibody Ehrlichia IgM Antibody E. chaffeensis IgG Ab E. 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
[2019-02-05 12:29] LABS: ANISOCYTOSIS 0; MACROCYTOSIS 0; PLATELET ESTIMATE DECREASED
--- NOTE | 2019-02-05 14:35 | PN ---
Progress Note (short form) - Note Progress Note: appetite improved no fevers Vital Signs Period Temp Pulse Resp BP Sys/Mariee Pulse Ox Last 24 Hr 98.1 F-98.8 F 79-92 16-20 118-142/61-71 98-98 cor-rrr lungs clear abd soft,nt ext no edema CBC, BMP 02/05/19 07:30 02/05/19 07:30 Laboratory Tests 01/29/19 01/31/19 02/01/19 17:15 07:22 06:00 Lymphocytes % No Result Required. AST 104 H 129 H ALT 106 H 128 H Alkaline Phosphatase 154 H 162 H LD Total 285 H 275 H 02/02/19 02/04/19 02/05/19 07:10 06:50 07:30 Lymphocytes % AST 152 H 158 H 127 H ALT 164 H 188 H 166 H Alkaline Phosphatase 180 H 228 H 213 H LD Total a/p fever- babesia - thrombocytopenia improved anemia stable today abnl lfts-persistent- ?meds- ?prior macrobid, f/u pcrs continue zithromax/mepron day day #7 no objection to d/c home in am if she gets am meds here tomorrow - day #8 tomorrow she will need zithromax 500 mg daily for another 2 days-total 10 days she will need mepron 750 mg bid to complete 10 days as well should have f/u cbc and cmp as outpt d/w dr bravo d/w patient and at bedside
[2019-02-06] MEDS: LEVOTHYROXINE NA 88 MCG TABLET (FP) PO SCH (06:31)
[2019-02-06] MEDS ORDERED: PT OWN MED DRAWER 7, Y5N ONE (08:20)
[2019-02-06] MEDS: ATOVAQUONE 750 MG/5 ML (UNIT-DOSE PACKAGING) PO SCH ×2 (08:22→17:11)
[2019-02-06] MEDS: AZITHROMYCIN 250 MG TABLET PO SCH (09:39)
[2019-02-06] MEDS: metoPROLOL SUCCINATE 25 MG TAB.SR.24H (FP) PO SCH (09:39)
[2019-02-06] MEDS: LACTOBACILLUS ACIDOPHILUS 1 TABLET PO SCH (09:39)
[2019-02-06] MEDS: PANTOPRAZOLE 40 MG TABLET (FP) PO SCH (09:39)
[2019-02-06] MEDS: POLYETHYLENE GLYCOL 3350 119 GM BTL PO SCH (09:42)
--- NOTE | 2019-02-06 11:03 | PN ---
Progress Note, Physician Chief Complaint: pt seen and examined,feel;s better afebrile now pt tolerating feeds ID and hematology ,GI note appreciated tolertaing feeds blood cul negatiive Labs noted LFT improving HB and plt stable Abd u/s shows fatty liver,chest xray negative abdominal x ray negative CT abd and pelvis no acute pathology PER id PT CAN GO HOME ON zithromax and Mepron for 2 more days - Current Medication List Current Medications: Active Medications Acetaminophen (Tylenol -) 650 mg PO Q4H PRN PRN Reason: FEVER Last Admin: 02/02/19 17:35 Dose: 650 mg Atovaquone (Mepron -) 750 mg PO BIDWM [facility] Last Admin: 02/06/19 08:22 Dose: 750 mg Lactobacillus Acidophilus (Bacid -) 1 tab PO DAILY [facility] Last Admin: 02/06/19 09:39 Dose: 1 tab Levothyroxine Sodium (Synthroid -) 88 mcg PO DAILY@0700 [facility] Last Admin: 02/06/19 06:31 Dose: 88 mcg Metoprolol Succinate (Toprol Xl -) 25 mg PO DAILY [facility] Last Admin: 02/06/19 09:39 Dose: 25 mg Pantoprazole Sodium (Protonix -) 40 mg PO BID [facility] Last Admin: 02/06/19 09:39 Dose: 40 mg Polyethylene Glycol (Miralax (For Daily Use) -) 17 gm PO DAILY [facility] Last Admin: 02/06/19 09:42 Dose: Not Given - Objective Vital Signs: Vital Signs Temperature 98.0 F 02/06/19 07:32 Pulse Rate 78 02/06/19 07:32 Respiratory Rate 15 02/06/19 07:32 Blood Pressure 115/68 02/06/19 07:32 O2 Sat by Pulse Oximetry (%) 98 02/05/19 09:00 Constitutional: Yes: No Distress Eyes: Yes: Conjunctiva Clear HENT: Yes: Atraumatic Neck: Yes: Supple, Trachea Midline Cardiovascular: Yes: Regular Rate and Rhythm Respiratory: Yes: Regular, CTA Bilaterally Gastrointestinal: Yes: Normal Bowel Sounds, Soft Musculoskeletal: Yes: WNL Extremities: Yes: WNL Edema: No Peripheral Pulses WNL: Yes Neurological: Yes: WNL, Alert, Oriented, Unsteady Gait Psychiatric: Yes: WNL, Alert Labs: CBC, BMP 02/05/19 07:30 02/05/19 07:30 INR, PTT INR 1.20 (0.83-1.09) H 02/03/19 06:10 Fibrinogen 454.0 mg/dL (238-498) 02/02/19 07:10 Assessment/Plan 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
[2019-02-06 12:10] LABS: HEMATOCRIT 29.2 % (32.4-45.2); HEMOGLOBIN 9.6 GM/dL (10.7-15.3); MCH 26.6 pg (25.7-33.7); MCHC 32.9 g/dl (32.0-36.0); MEAN CELL VOLUME 80.7 fl (80-96); PLATELET COUNT 141 K/MM3 (134-434); RBC 3.62 M/mm3 (3.60-5.2); RDW 17.5 % (11.6-15.6); WHITE BLOOD COUNT 6.6 K/mm3 (4.0-10.0)
[2019-02-06 12:33] LABS: ALBUMIN 2.8 g/dl (3.4-5.0); BILIRUBIN,TOTAL 0.6 mg/dL (0.2-1); BLOOD UREA NITROGEN 12.4 mg/dL (7-18); CALCIUM 9.6 mg/dL (8.5-10.1); CREATININE 0.7 mg/dL (0.55-1.3); POTASSIUM 4.5 mmol/L (3.5-5.1); TOT PROT 7.7 g/dl (6.4-8.2)
--- NOTE | 2019-02-06 13:08 | DS ---
DATE OF ADMISSION: 01/29/2019 DATE OF DISCHARGE: DATE OF DICTATION: 02/06/2019 HISTORY OF PRESENT ILLNESS: Patient is a 73-year-old female with a history of hypothyroidism, hypertension, hypercholesterolemia, who came to the emergency room with the complaints of fever, headache, and body pain and chills. Patient also had history of burning sensation while passing urine. Patient was treated with Macrobid. Patient took a few tablets at home. Patient had CBC and lab work done as an outpatient that showed thrombocytopenia, and she had a history of fever at home, and she took Tylenol. Since the fever, headache, and the chills were persistent, patient came to the emergency room for further evaluation. ALLERGIES: Regarding allergy, patient is allergic to AMOXICILLIN and SULFA. HOME MEDICATIONS: Patient is on Synthroid, metoprolol succinate, Atacand, levothyroxine, 25 mg p.o. daily, and Macrobid. SOCIAL HISTORY: Lives with the family. PAST MEDICAL HISTORY: Significant for hypertension, hypercholesterolemia, hypothyroidism, and occasional dizziness. SURGICAL HISTORY: Nothing significant. PERSONAL HISTORY: Nothing significant. No history of recent travel. REVIEW OF SYSTEMS: General: Patient had complaints of fever, chills, malaise, generalized weakness, and body ache. Head and Neck: No ear pain, no sore throat, no vision change. Cardiovascular: No chest pain, no palpitation. Lightheadedness, syncope. Respiration: No cough. Gastrointestinal: No nausea, no vomiting. Genitourinary: Patient had a history of urinary tract infection. ADMISSION PHYSICAL EXAMINATION: Vital Signs: At the time of visit to the emergency room, temperature was 102.3, pulse was 96, respirations 18, blood pressure 138/84, pulse oximetry 100%. General: Patient was nontoxic. Head and Neck: Normal. Neck supple. No JVD. Chest: Clear. Cardiovascular: First and 2nd sound normal. Abdomen: Soft. No tenderness, no distension. Bowel sounds present. Neurological: Cranial nerves 2-12 normal. No apparent motor or sensory deficit. HOSPITAL COURSE: Patient was admitted 1 day at [facility], and since the fever was persistent, and the hemoglobin was dropping down, patient transferred to [facility] for further evaluation. At the time of admission, the comprehensive panel was sodium 133, potassium 4.4, BUN and creatinine normal, AST 67, ALT 66, alkaline phosphatase 108. LDH total 257. Cardiac enzymes negative. Amylase and lipase normal. CBC showed WBC 5.6, hemoglobin 11.1, hematocrit 32.9, platelet 70, monocytes 20. PT 15.5, INR 1.39. Urine blood 1+, leukocyte esterase negative. SONIA screen was negative. Patient was given IV antibiotics Rocephin, doxycycline, and blood smears and for Babesia, Lyme disease, anaplasma, Ehrlichia, blood culture and urine culture sent and hemolysis workup ordered. Hemoglobin was monitored serially and showed anemia. On CBC, hemoglobin varies between 11.1 to 8.4 and hematocrit varies from 32.9 to 25, and platelet count varies from 70 to 56. It was monitored daily. The liver enzymes were noted to increase, which was monitored serially. Chest x-ray was negative. Abdominal x-ray was negative. Patient was followed by the ID, Oncology, and Gastroenterology, and the reason for the elevated LFT assumed to be due to the Macrobid and drug-induced. Hepatitis profile was negative. Ultrasound of abdomen shows fatty liver. CT of the abdomen and pelvis shows nothing significant, negative. Ceftriaxone discontinued. Doxycycline also discontinued and patient was given Zithromax and Mepron. Peripheral smear shows Babesia species positive on 7 smears. Urine culture was negative. Blood culture was negative. After 4 days, hemoglobin and hematocrit stable. Liver function started improving. SONIA screen was negative. Total complement was negative. Stool blood occult was negative. CMV IgG antibody was 40.9. West Nile virus pending. EBV virus, DNA PCR pending. Hepatitis profile negative. Malaria test pending. Lyme test titer is pending. Dengue fever, IgG and IgM antibody pending. Patient was afebrile for 2 days, feels better. Patient started eating normally, ambulating normally, afebrile for 48 hours . Patient is stable. Hemoglobin and hematocrit were stable. So, patient is discharged home on Zithromax 500 mg p.o. daily to complete the 10 days of antibiotics and Mepron 750 mg p.o. b.i.d. for a total of 10 days. Patient discharged home in stable condition. During hospitalization, patient was stable. Recommended to follow with her primary in 1 week and will follow the CBC, liver function tests, and comprehensive panel and the other serological studies as an outpatient. SARODavon [id number]
[2019-02-06 15:30] VITALS: BP 123/78; PULSE 80; TEMP 97.6
== END 2019-02-06 18:50 | disposition home or self-care (01) | DRG 868 ==
LOC: SUPCPDRO 15:25 → FER 15:25 → FM/S 19:02 → J6S 01-30 19:29
PROVIDERS: ADMIT Internal Medicine; ATTEND Family Medicine
DX: B60.0 Babesiosis (principal); N39.0 Urinary tract infection, site not specified; D69.6 Thrombocytopenia, unspecified; I10 Essential (primary) hypertension; E03.9 Hypothyroidism, unspecified; R42 Dizziness and giddiness; I87.2 Venous insufficiency (chronic) (peripheral); R94.5 Abnormal results of liver function studies
CPT/HCPCS: 36415; 71045-TC-FY; 71046-TC-FY; 74019-TC-FY; 74176-TC; 76705-TC; 80048; 80053; 80074; 80076; 81003; 81015; 82085; 82150; 82248; 82272; 82550; 82553; 82728; 82930; 83010; 83540; 83550; 83605; 83615; 83690; 83735; 84484; 85025; 85027; 85044; 85384; 85610; 85730; 86038; 86140; 86162; 86644; 86645; 86666; 86788; 86789; 86790; 87040; 87086; 87207; 87798; 87799; 93005; 97116-GP; 97161-GP; 99283-25; J0131; J7030

== ENCOUNTER → 2023-10-29 | Day surgery (SDC) | payer OTHER | END | disposition home or self-care (01) | LOC: JRADUS-SUR 07:43 | PROVIDERS: ATTEND Internal Medicine | PROC: 0H9T3ZX Drainage of Right Breast, Percutaneous Approach, Diagnostic (ICD-10-PCS; principal; 2023-10-29) | DX: N63.10 Unspecified lump in the right breast, unspecified quadrant (principal); Z53.8 Procedure and treatment not carried out for other reasons | CPT/HCPCS: 76642-TC-RT ==